=== PATIENT | male | born 1935 | race Caucasian/White ===

== ENCOUNTER 2016-10-23 23:45 | Emergency (ER) | payer MEDICARE, OTHER ==
[~2016-10-23] VITALS: Ht 180.3 cm; Wt 68.0 kg
[~2016-10-23 23:45] MED LIST: AMLO10 PO; CLON.1 PO; FINA5TAB77 PO; GLIP2.5T2 PO; METF500 PO; QUET25 PO; TAMS.4 PO
[2016-10-23 23:54] VITALS: BP 135/68; PULSE 88; RESP 20; TEMP 98; O2SAT 98
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
[2016-10-24 00:23] LABS: AUTOMATED NEUTROPHIL # 6.3 TH/MM3 (1.8-7.7); BASOPHIL % 0.5 % (0.0-2.0); EOSINOPHIL # 0.2 TH/MM3 (0-0.4); EOSINOPHIL % 1.8 % (0.0-4.0); HEMATOCRIT 36.1 % (39.0-51.0); HEMO FLAGS DIFF FINAL; LYMPH % 16.2 % (9.0-44.0); LYMPHOCYTE # 1.4 TH/MM3 (1.0-4.8); MEAN CORPUSCULAR HEMOGLOBIN 30.3 PG (27.0-34.0); MEAN CORPUSCULAR HGB CONC 34.8 % (32.0-36.0); MONO % 8.1 % (0.0-8.0); NEUT % 73.4 % (16.0-70.0); PLATELET COUNT 275 TH/MM3 (150-450); RED BLOOD COUNT 4.14 MIL/MM3 (4.50-5.90); RED CELL DISTRIBUTION WIDTH 14.1 % (11.6-17.2); WHITE BLOOD COUNT 8.6 TH/MM3 (4.0-11.0)
[2016-10-24 01:05] LABS: ALT (GPT) 19 U/L (12-78); ANION GAP 11 MEQ/L (5-15); AST (GOT) 11 U/L (15-37); BICARBONATE 25.4 MEQ/L (21.0-32.0); BLOOD UREA NITROGEN 23 MG/DL (7-18); CHLORIDE 105 MEQ/L (98-107); GLOMERULAR FILTRATION RATE 57 ML/MIN (>89); POTASSIUM 3.8 MEQ/L (3.5-5.1); SODIUM (NA) 141 MEQ/L (136-145)
[2016-10-24 01:15] LABS: ALKALINE PHOSPHATASE 60 U/L (45-117); TOTAL BILIRUBIN ADULT 0.5 MG/DL (0.2-1.0)
[2016-10-24 07:54] VITALS: BP 144/87; PULSE 77; RESP 21; TEMP 97.7; O2SAT 100
[2016-10-24 08:14] LABS: BLOOD, URINE NEG (NEG); COMMENT (UR) CULT NOT INDICATED; CULTURE IF INDICATED CULT NOT INDICATED; GLUCOSE,URINE NEG (NEG); KETONE, URINE NEG (NEG); MUCUS URINE FEW /lpf (OCC); NITRITE,URINE NEG (NEG); PH, URINE 7.5 (5.0-8.5); URINE COLOR LIGHT-YELLOW (YELLW/STRAW)
[2016-10-24 08:26] LABS: AMPHETAMINE, URINE NEG (NEG); BARBITURATES, URINE NEG (NEG); COCAINE, URINE NEG (NEG)
--- NOTE | 2016-10-24 09:33 | EKG ---
Date Performed: 10/24/2016 Time Performed: 00:24:04 PTAGE: 81 years EKG: Sinus rhythm WITH FREQUENT SUPRAVENTRICULAR PREMATURE COMPLEXES ABNORMAL RHYTHM ECG PREVIOUS TRACING : 03/21/2015 12.24 DOCTOR: Nam Rodriguez Interpretating Date/Time 10/24/2016 09:29:19
[2016-10-24 14:58] VITALS: BP 188/113; PULSE 91; RESP 18; TEMP 97; O2SAT 96
[2016-10-24] MEDS ORDERED: LISI10TA3 PO (16:11)
[2016-10-24] MEDS ORDERED: ZOLO50TA PO (16:11)
[2016-10-24] MEDS ORDERED: TAMS0.4C4 PO (16:11)
[2016-10-24] MEDS ORDERED: CLON0.1T PO (16:11)
[2016-10-24] MEDS ORDERED: GLIP5TAB8 PO (16:11)
[2016-10-24] MEDS ORDERED: METF1000 PO (16:11)
[2016-10-24] MEDS ORDERED: AMLO5TAB2 PO (16:11)
[2016-10-24] MEDS ORDERED: cloNIDine HCL 0.1 MG TAB PO PRN (20:30)
[2016-10-24] MEDS: diphenhydrAMINE HCL 50 MG CAP PO PRN ×2 (20:33→20:44)
[2016-10-24 20:34] VITALS: BP 222/119; PULSE 96
[2016-10-24] MEDS ORDERED: metFORMIN HCL 500 MG TAB PO ONE (21:30)
[2016-10-24 21:36] VITALS: BP 208/107; PULSE 109; RESP 18
[2016-10-25 01:59] VITALS: BP 144/69; PULSE 95; RESP 18
[2016-10-25 05:34] VITALS: BP 135/84; PULSE 91; RESP 18
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
[2016-10-25 10:23] VITALS: BP 137/58; PULSE 61; RESP 16; O2SAT 92
== END 2016-10-25 12:29 | disposition home or self-care (01) ==
LOC: NEPD 23:45 → NEPJ 10-25 12:29
DX: F03.91 Unspecified dementia, unspecified severity, with behavioral disturbance (principal); R94.31 Abnormal electrocardiogram [ECG] [EKG]; I10 Essential (primary) hypertension
CPT/HCPCS: 80053; 80307; 81001; 84443; 85025; 93005; 99284; Q0163

== ENCOUNTER 2017-04-06 11:31 | Inpatient (IN) | payer MEDICARE, OTHER ==
[~2017-04-06] VITALS: Ht 170.2 cm; Wt 69.1 kg
[2017-04-06] VITALS (7 sets, daily range): BP systolic 141–169; BP diastolic 70–96; PULSE 110–124; RESP 18–22; TEMP 97.8–101.2; O2SAT 90–100
[~2017-04-06 11:31] MED LIST changes: -AMLO10 PO; +AMLO5TAB2 PO; -CLON.1 PO; +CLON0.1T PO; -FINA5TAB77 PO; -GLIP2.5T2 PO; +GLIP5TAB8 PO; +LISI10TA3 PO; +METF1000 PO; -METF500 PO; -QUET25 PO; -TAMS.4 PO; +TAMS0.4C4 PO; +ZOLO50TA PO
[2017-04-06] MEDS ORDERED: SODIUM CHLOR 0.9% 1000 ML INJ 1,000 ML IV ONE (11:45)
--- NOTE | 2017-04-06 11:57 | PD ---
HPI Chief Complaint: Altered Mental Status Time Seen by Provider: 11:32 Travel History International Travel<30 days: No Contact w/Intl Traveler<30days: No Traveled to known affect area: No History of Present Illness HPI Patient is a 81-year-old male with a history of dementia on hospice for dementia presents to the ER for evaluation of decreasing mental status over the past 48 hours. Apparently last [facility] and had a fever to 102. Urine was sent and a chest x-ray was negative urine had not resulted yet. Patient's fairly altered on arrival with waxing and waning mental status between GCS of 14 and 7. Not much other history is available to me at this time. His arrives and states that the patient typically is conversant. He is fairly demented at baseline. PFSH Past Medical History Asthma: No Autoimmune Disease: No Anxiety: Yes Depression: Yes Cardiovascular Problems: Yes High Cholesterol: Yes Chest Pain: No Congestive Heart Failure: No COPD: No Cerebrovascular Accident: No Diabetes: Yes Diminished Hearing: No Endocrine: Yes Hypertension: Yes Immune Disorder: No Kidney Stones: No Musculoskeletal: No Neurologic: No Reproductive: No Respiratory: No Immunizations Current: No Migraines: No Renal Failure: No Seizures: No Sickle Cell Disease: No Thyroid Disease: No Triglycerides - High: Yes Ulcer: No Past Surgical History Abdominal Surgery: Yes (HERNIA X 2) AICD: No Arteriovenous Shunt: No Cardiac Surgery: No Ear Surgery: No Endocrine Surgery: No Eye Surgery: No Genitourinary Surgery: No Gynecologic Surgery: No Insulin Pump: No Pacemaker: No Thoracic Surgery: No Social History Alcohol Use: No Tobacco Use: No Substance Use: No Allergies-Medications (Allergen,Severity, Reaction): Coded Allergies: No Known Allergies (Verified Allergy, Unknown, 04/06/17) Reported Meds & Prescriptions Reported Meds & Active Scripts Active Reported Ambien (Zolpidem Tartrate) 10 Mg Tab 10 Mg PO HS PRN Xanax (Alprazolam) 0.5 Mg Tab 0.5 Mg PO Q6H PRN Seroquel (Quetiapine Fumarate) 25 Mg Tab 25 Mg PO DAILY Lasix (Furosemide) 20 Mg Tab 20 Mg PO DAILY Aldactone (Spironolactone) 25 Mg Tab 25 Mg PO DAILY Clonidine (Clonidine HCl) 0.1 Mg Tab 0.1 Mg PO BID Tamsulosin (Tamsulosin HCl) 0.4 Mg Cap 0.4 Mg PO HS Amlodipine (Amlodipine Besylate) 5 Mg Tab 5 Mg PO DAILY Lisinopril 10 Mg Tab 10 Mg PO DAILY Zoloft (Sertraline HCl) 50 Mg Tab 50 Mg PO DAILY Metformin (Metformin HCl) 1,000 Mg Tab 1,000 Mg PO BIDPC With meals Review of Systems Except as stated in HPI: all other systems reviewed are Neg Physical Exam Narrative GENERAL: Well-developed well-nourished, altered. Sickly appearance.] SKIN: Focused skin assessment warm/dry. HEAD: Atraumatic. Normocephalic. EYES: Pupils equal and round. No scleral icterus. No injection or drainage. ENT: No nasal bleeding or discharge. Mucous membranes pink and moist. NECK: Trachea midline. No JVD. CARDIOVASCULAR: Tachycardic with regular rhythm. 2+ bilaterally equal pulses in all 4 extremities. No murmur appreciated. RESPIRATORY: No accessory muscle use. Clear to auscultation. Breath sounds equal bilaterally. GASTROINTESTINAL: Abdomen soft, non-tender, nondistended. Hepatic and splenic margins not palpable. MUSCULOSKELETAL: No obvious deformities. No clubbing. No cyanosis. No edema. NEUROLOGICAL: Awake and alert. Moves all 4 extremities and opens eyes to painful stimuli. Later in his course is moving all 4 extremities purposefully, rigorous at times. PSYCHIATRIC: Appropriate mood and affect; insight and judgment normal. Data Data Last Documented VS Vital Signs Date Time Temp Pulse Resp B/P (MAP) Pulse Ox O2 Delivery O2 Flow Rate FiO2 04/06/17 14:15 101.2 124 20 169/93 (118) 100 Nasal Cannula 3.00 Orders Orders Sepsis Workup Initiated (04/06/17 ) Electrocardiogram (04/06/17 11:32) Complete Blood Count With Diff (04/06/17 11:32) Comprehensive Metabolic Panel (04/06/17 11:32) Prothrombin Time / Inr (Pt) (04/06/17 11:32) Act Partial Throm Time (Ptt) (04/06/17 11:32) Lactic Acid Sepsis Protocol (04/06/17 11:32) Magnesium (Mg) (04/06/17 11:32) Phosphorus (Po4) (04/06/17 11:32) Lipase (04/06/17 11:32) Ckmb (Isoenzyme) Profile (04/06/17 11:32) Troponin I (04/06/17 11:32) Urinalysis - C+S If Indicated (04/06/17 11:32) Blood Culture (04/06/17 11:32) Chest, Single Ap (04/06/17 11:32) Blood Glucose (04/06/17 11:32) Ecg Monitoring (04/06/17 11:32) Iv Access Insert/Monitor (04/06/17 11:32) Oximetry (04/06/17 11:32) Oxygen Administration (04/06/17 11:32) Ct Brain W/O Iv Contrast(Rout) (04/06/17 ) Insert Temp Sensing [place] Cath (04/06/17 11:32) Sodium Chlor 0.9% 1000 Ml Inj (Ns 1000 M (04/06/17 11:45) Urine Culture (04/06/17 11:45) Ceftriaxone Inj (Rocephin Inj) (04/06/17 13:15) Admit Order (Ed Use Only) (04/06/17 ) Labs Laboratory Tests Test 04/06/17 11:40 04/06/17 11:45 04/06/17 11:46 Prothrombin Time 11.8 SEC Prothromb Time International Ratio 1.1 RATIO Activated Partial Thromboplast Time 23.6 SEC Lactic Acid Level 1.5 mmol/L Urine Color LIGHT-YELLOW Urine Turbidity HAZY Urine pH 6.0 Urine Specific [place] 1.014 Urine Protein 100 mg/dL Urine Glucose (UA) 1000 mg/dL Urine Ketones NEG mg/dL Urine Occult Blood LARGE Urine Nitrite POS Urine Bilirubin NEG Urine Urobilinogen LESS THAN 2.0 MG/DL Urine Leukocyte Esterase LARGE Urine RBC 18 /hpf Urine WBC /hpf Urine WBC Clumps FEW Urine Bacteria MOD /hpf Microscopic Urinalysis Comment CATH-CULTURE IND White Blood Count 7.0 TH/MM3 Red Blood Count 3.99 MIL/MM3 Hemoglobin 12.3 GM/DL Hematocrit 35.7 % Mean Corpuscular Volume 89.3 FL Mean Corpuscular Hemoglobin 30.8 PG Mean Corpuscular Hemoglobin Concent 34.5 % Red Cell Distribution Width 13.3 % Platelet Count 166 TH/MM3 Mean Platelet Volume 9.7 FL Neutrophils (%) (Auto) 87.5 % Lymphocytes (%) (Auto) 4.9 % Monocytes (%) (Auto) 7.3 % Eosinophils (%) (Auto) 0.0 % Basophils (%) (Auto) 0.3 % Neutrophils # (Auto) 6.1 TH/MM3 Lymphocytes # (Auto) 0.3 TH/MM3 Monocytes # (Auto) 0.5 TH/MM3 Eosinophils # (Auto) 0.0 TH/MM3 Basophils # (Auto) 0.0 TH/MM3 CBC Comment DIFF FINAL Differential Comment Blood Urea Nitrogen 31 MG/DL Creatinine 1.68 MG/DL Random Glucose 374 MG/DL Total Protein 7.0 GM/DL Albumin 3.2 GM/DL Calcium Level 8.5 MG/DL Phosphorus Level 3.7 MG/DL Magnesium Level 1.7 MG/DL Alkaline Phosphatase 71 U/L Aspartate Amino Transf (AST/SGOT) 10 U/L Alanine Aminotransferase (ALT/SGPT) 15 U/L Total Bilirubin 0.6 MG/DL Sodium Level 140 MEQ/L Potassium Level 3.6 MEQ/L Chloride Level 103 MEQ/L Carbon Dioxide Level 28.3 MEQ/L Anion Gap 9 MEQ/L Estimat Glomerular Filtration Rate 40 ML/MIN Total Creatine Kinase 94 U/L Troponin I 0.02 NG/ML Lipase 66 U/L MDM Medical Decision Making Medical Screen Exam Complete: Yes Emergency Medical Condition: Yes Differential Diagnosis Altered mental status, intracranial injury, sepsis, UTI, pneumonia. Narrative Course Patient roomed in emergency department, Delfino is a time he did not the fever and axis of 102. Tylenol was given. He was given normal saline by bolus, UA was obtained and did reveal nitrate positive urine, he does meet Sirs criteria and therefore sepsis from UTI. Lactic acid is normal and he does have a history of CHF therefore aggressive fluid resuscitation is not indicated at this time. HEENT had a lengthy discussion with the patient's over CODE STATUS and the patient's wishes at this time. She would like him treated for UTI and sepsis for sure and initially is unsure about CODE STATUS but after discussing with the neighbor she opts to make the patient DNR at this time stating that she wouldn't want him to suffer anymore. Formal DNR order was added to the chart. Discussed admission to the hospital for treatment of UTI and sepsis and she is agreeable. Rocephin was given. Discussed with residents on-call for admission to Dr. Bessy Waters Diagnosis Primary Impression: Sepsis secondary to UTI Admitting Information Admitting Physician Requests: Admit Condition: Stable Sameer Coley MD Apr 06, 2017 11:57
[2017-04-06 12:16] LABS: AUTOMATED NEUTROPHIL # 6.1 TH/MM3 (1.8-7.7); BASOPHIL % 0.3 % (0.0-2.0); HEMATOCRIT 35.7 % (39.0-51.0); HEMO FLAGS DIFF FINAL; LYMPH % 4.9 % (9.0-44.0); LYMPHOCYTE # 0.3 TH/MM3 (1.0-4.8); MEAN CELL VOLUME 89.3 FL (80.0-100.0); MEAN CORPUSCULAR HEMOGLOBIN 30.8 PG (27.0-34.0); MEAN CORPUSCULAR HGB CONC 34.5 % (32.0-36.0); MONO % 7.3 % (0.0-8.0); NEUT % 87.5 % (16.0-70.0); PLATELET COUNT 166 TH/MM3 (150-450); RED BLOOD COUNT 3.99 MIL/MM3 (4.50-5.90); RED CELL DISTRIBUTION WIDTH 13.3 % (11.6-17.2)
--- NOTE | 2017-04-06 12:18 | RADRPT ---
EXAM DATE/TIME: 04/06/2017 11:57 [facility] COMPARISON: No previous studies available for comparison. INDICATIONS : Fever. MEDICAL HISTORY : unobtainable. SURGICAL HISTORY : unobtainable. ENCOUNTER: Initial ACUITY: 1 day PAIN SCORE: Non-responsive. LOCATION: Bilateral chest FINDINGS: A single view of the chest demonstrates the lungs to be symmetrically aerated without evidence of mas s, infiltrate or effusion. The cardiomediastinal contours are unremarkable. Osseous structures are intact. CONCLUSION: Normal examination. Nam Ibanez MD on April 06, 2017 at 12:17 Board Certified Radiologist. This report was verified electronically.
[2017-04-06 12:27] LABS: APTT (PATIENT) 23.6 SEC (24.3-30.1); INTERNATIONAL NORMALIZED RATIO 1.1 RATIO; PROTHROMBIN TIME - PATIENT 11.8 SEC (9.8-11.6)
[2017-04-06 12:27] LABS: ANION GAP 9 MEQ/L (5-15); BICARBONATE 28.3 MEQ/L (21.0-32.0); BLOOD UREA NITROGEN 31 MG/DL (7-18); CHLORIDE 103 MEQ/L (98-107); GLOMERULAR FILTRATION RATE 40 ML/MIN (>89); MAGNESIUM 1.7 MG/DL (1.5-2.5); POTASSIUM 3.6 MEQ/L (3.5-5.1); SODIUM (NA) 140 MEQ/L (136-145)
[2017-04-06 12:28] LABS: AST (GOT) 10 U/L (15-37)
[2017-04-06 12:31] LABS: ALKALINE PHOSPHATASE 71 U/L (45-117); ALT (GPT) 15 U/L (12-78); TOTAL BILIRUBIN ADULT 0.6 MG/DL (0.2-1.0)
[2017-04-06 12:32] LABS: BACTERIA, URINE MOD /hpf; BLOOD, URINE LARGE (NEG); COMMENT (UR) CATH-CULTURE IND; CULTURE IF INDICATED CATH CULTURE IND; GLUCOSE,URINE 1000 mg/dL (NEG); KETONE, URINE NEG (NEG); NITRITE,URINE POS (NEG); URINE COLOR LIGHT-YELLOW (YELLW/STRAW)
[2017-04-06 12:36] LABS: CREATINE KINASE 94 U/L (39-308)
[2017-04-06] MEDS ORDERED: FURO1TAB62 PO (12:41)
[2017-04-06] MEDS ORDERED: SPIR25 PO (12:41)
[2017-04-06] MEDS ORDERED: ALPR.5 PO (12:41)
[2017-04-06] MEDS ORDERED: AMBI10TA PO (12:41)
[2017-04-06] MEDS ORDERED: SERO25TA PO (12:41)
--- NOTE | 2017-04-06 12:57 | RADRPT ---
EXAM DATE/TIME: 04/06/2017 12:31 [facility] COMPARISON: No previous studies available for comparison. INDICATIONS : Altered mental status. RADIATION DOSE: 40.08 CTDIvol (mGy) MEDICAL HISTORY : Hypertension. Diabetes mellitus type 2. SURGICAL HISTORY : Hernia repair. ENCOUNTER: Initial ACUITY: 1 day PAIN SCALE: 0/10 LOCATION: cranial TECHNIQUE: Multiple contiguous axial images were obtained of the head. Using automated exposure control and adj ustment of the mA and/or kV according to patient size, radiation dose was kept as low as reasonably a chievable to obtain optimal diagnostic quality images. DICOM format image data is available electro nically for review and comparison. FINDINGS: There is marked central and cortical atrophy with dilatation of ventricular and sulcal spaces. There is no parenchymal hemorrhage, acute infarction or mass lesion identified. There are no extra-axial fluid collections appreciated. The posterior fossa is unremarkable with midline fourth ventricle. T he portion of the orbits and paranasal sinuses visualized are unremarkable. CONCLUSION: No acute disease. Nam Ibanez MD on April 06, 2017 at 12:55 Board Certified Radiologist. This report was verified electronically.
[2017-04-06] MEDS ORDERED: cefTRIAXone INJ 1,000 MG in SODIUM CHLORIDE 0.9% INJ 100 ML IV ONE (13:15)
[2017-04-06] MEDS ORDERED: ACETAMINOPHEN 650 MG SUPP RECTAL ONE (14:30)
--- NOTE | 2017-04-06 14:53 | HHI.HP ---
[facility] Service Family Medicine Primary Care Physician Unknown Admission Diagnosis UTI with Sepsis. Diagnoses: International Travel<30 Days: No Contact w/Intl Traveler<30days: No Known Affected Area: No History of Present Illness Patient is a 81-year-old male with a PMH of dementia, HTN, DM, and HLD that presents to the [place] ED from the [facility] with chief complaints of fever and lethargy of one-day duration. The patient's at bedside states that she she received a call from the [facility] and the previous night informing her that her had a fever and they were going to check an x-ray. The next day she called and was told that the x-ray was negative. Later that morning, they called to inform her that he was being rushed to the hospital because he was very lethargic and was not responding. The patient's states that she when she saw him in the ED, he initially responded to her and then became agitated. One of the nurses at [facility] confirmed that the patient had a fever of 102F the previous night and was very lethargic. He is confused at baseline but he could answer simple questions such as "what is your name?" But was not answering any questions or responding this morning. (Ana Rosa Oneil MD R2) Review of Systems Constitutional: COMPLAINS OF: Fever Cardiovascular: COMPLAINS OF: Lower Extremity Edema ( states has improved recently since being on lasix) Genitourinary: COMPLAINS OF: Urinary incontinence, Dysuria ( states that recently, he screams when he urinates ) Psychiatric: COMPLAINS OF: Confusion Other Unable to obtain complete review of systems due to patient being nonverbal. (Ana Rosa Oneil MD R2) Past Family Social History Past Medical History -Dementia - confused at baseline -Diabetes -Hypertension -Hyperlipidemia -Spinal stenosis -Incontinent of stool and urine Past Surgical History Hernia surgery many years ago Appendectomy Reported Medications Reported Meds & Active Scripts Active Reported Ambien (Zolpidem Tartrate) 10 Mg Tab 10 Mg PO HS PRN Xanax (Alprazolam) 0.5 Mg Tab 0.5 Mg PO Q6H PRN Seroquel (Quetiapine Fumarate) 25 Mg Tab 25 Mg PO DAILY Lasix (Furosemide) 20 Mg Tab 20 Mg PO DAILY Aldactone (Spironolactone) 25 Mg Tab 25 Mg PO DAILY Clonidine (Clonidine HCl) 0.1 Mg Tab 0.1 Mg PO BID Tamsulosin (Tamsulosin HCl) 0.4 Mg Cap 0.4 Mg PO HS Amlodipine (Amlodipine Besylate) 5 Mg Tab 5 Mg PO DAILY Lisinopril 10 Mg Tab 10 Mg PO DAILY Zoloft (Sertraline HCl) 50 Mg Tab 50 Mg PO DAILY Metformin (Metformin HCl) 1,000 Mg Tab 1,000 Mg PO BIDPC With meals (Ana Rosa Oneil MD R2) Allergies: Coded Allergies: No Known Allergies (Verified Allergy, Unknown, 04/06/17) Family History -He is off [place] descent -At least one brother had diabetes -Mom had dementia Social History -Patient's denies that he ever smoked, used alcohol, or used illicit drugs -Leaves at [facility] sings December 2016 -Patient has been in hospice with [facility] since July 2016. He has been full code because his hospice does not require a DNR status. (Ana Rosa Oneil MD R2) Physical Exam Vital Signs Vital Signs Date Time Temp Pulse Resp B/P (MAP) Pulse Ox O2 Delivery O2 Flow Rate FiO2 04/06/17 14:15 101.2 124 20 169/93 (118) 100 Nasal Cannula 3.00 04/06/17 12:30 97.8 118 20 141/90 (107) 96 Nasal Cannula 3.00 04/06/17 11:35 22 96 Nasal Cannula 3.00 04/06/17 11:35 96 Nasal Cannula 3.00 04/06/17 11:35 22 96 Nasal Cannula 3.00 04/06/17 11:32 98.4 114 22 157/96 (116) 90 Physical Exam GENERAL: This is a well-nourished, well-developed patient, in no respiratory distress but appears lethargic SKIN: No rashes, ecchymoses or lesions. Cool and dry. HEAD: Atraumatic. Normocephalic. No temporal or scalp tenderness. EYES: Pupils equal round and reactive. No scleral icterus. No injection or drainage. ENT: Nose without bleeding, purulent drainage or septal hematoma. Unable to assess oropharynx, patient will not open mouth during the exam NECK: Trachea midline. No JVD or lymphadenopathy. Supple, nontender, no meningeal signs. CARDIOVASCULAR: Tachycardic rate and regular rhythm without murmurs, gallops, or rubs. 2+ DP and radial pulses RESPIRATORY: Clear to auscultation. Breath sounds equal bilaterally. No wheezes , rales, or rhonchi. GASTROINTESTINAL: Abdomen soft, non-tender, nondistended. No hepato-splenomegaly , or palpable masses. No guarding. MUSCULOSKELETAL: Extremities without clubbing, cyanosis, or edema. No joint tenderness, effusion, or edema noted. No calf tenderness. NEUROLOGICAL: Nonverbal, not responding to commands Laboratory Laboratory Tests Test 04/06/17 11:40 04/06/17 11:45 04/06/17 11:46 Prothrombin Time 11.8 Prothromb Time International Ratio 1.1 Activated Partial Thromboplast Time 23.6 Lactic Acid Level 1.5 Urine Color LIGHT-YELLOW Urine Turbidity HAZY Urine pH 6.0 Urine Specific [place] 1.014 Urine Protein 100 Urine Glucose (UA) 1000 Urine Ketones NEG Urine Occult Blood LARGE Urine Nitrite POS Urine Bilirubin NEG Urine Urobilinogen LESS THAN 2.0 Urine Leukocyte Esterase LARGE Urine RBC 18 Urine WBC Urine WBC Clumps FEW Urine Bacteria MOD Microscopic Urinalysis Comment CATH-CULTURE IND White Blood Count 7.0 Red Blood Count 3.99 Hemoglobin 12.3 Hematocrit 35.7 Mean Corpuscular Volume 89.3 Mean Corpuscular Hemoglobin 30.8 Mean Corpuscular Hemoglobin Concent 34.5 Red Cell Distribution Width 13.3 Platelet Count 166 Mean Platelet Volume 9.7 Neutrophils (%) (Auto) 87.5 Lymphocytes (%) (Auto) 4.9 Monocytes (%) (Auto) 7.3 Eosinophils (%) (Auto) 0.0 Basophils (%) (Auto) 0.3 Neutrophils # (Auto) 6.1 Lymphocytes # (Auto) 0.3 Monocytes # (Auto) 0.5 Eosinophils # (Auto) 0.0 Basophils # (Auto) 0.0 CBC Comment DIFF FINAL Differential Comment Blood Urea Nitrogen 31 Creatinine 1.68 Random Glucose 374 Total Protein 7.0 Albumin 3.2 Calcium Level 8.5 Phosphorus Level 3.7 Magnesium Level 1.7 Alkaline Phosphatase 71 Aspartate Amino Transf (AST/SGOT) 10 Alanine Aminotransferase (ALT/SGPT) 15 Total Bilirubin 0.6 Sodium Level 140 Potassium Level 3.6 Chloride Level 103 Carbon Dioxide Level 28.3 Anion Gap 9 Estimat Glomerular Filtration Rate 40 Total Creatine Kinase 94 Troponin I 0.02 Lipase 66 Date/Time Source Procedure Growth Status 04/06/17 12:03 Blood Peripheral Aerobic Blood Culture Pending Received 04/06/17 12:03 Blood Peripheral Anaerobic Blood Culture Pending Received 04/06/17 11:45 Urine Catheterized Urine Urine Culture Pending Received (Ana Rosa Oneil MD R2) Result Diagram: 04/06/17 1146 04/06/17 1146 Imaging Last Impressions Chest X-Ray 04/06/17 1132 Signed Impressions: Service Date/Time: Thursday, April 06, 2017 11:57 - CONCLUSION: Normal examination. Nam Ibanez MD Head CT 04/06/17 0000 Signed Impressions: Service Date/Time: Thursday, April 06, 2017 12:31 - CONCLUSION: No acute disease. Nam Ibanez MD Course In the ED, a chest x-ray and a head CT without contrast were performed and were normal. Patient was found to have a urinary tract infection on UA. He received one dose of Rocephin 1000 mg IV. The first EKG showed A. fib with RVR and the second EKG in the ED showed sinus tachycardia. (Ana Rosa Oneil MD R2) Caprini VTE Risk Assessment Caprini VTE Risk Assessment: Mod/High Risk (score >= 2) Caprini Risk Assessment Model Point Value = 1 Point Value = 2 Point Value = 3 Point Value = 5 Age 41-60 Minor surgery BMI > 25 kg/m2 Swollen legs Varicose veins or History of unexplained or recurrent spontaneous Oral contraceptives or hormone replacement Sepsis (< 1 month) Serious lung disease, including pneumonia (< 1 month) Abnormal pulmonary function Acute myocardial infarction Congestive heart failure (< 1 month) History of inflammatory bowel disease Medical patient at bed rest Age 61-74 Arthroscopic surgery Major open surgery (> 45 min) Laparoscopic surgery (> 45 min) Malignancy Confined to bed (> 72 hours) Immobilizing plaster cast Central venous access Age >= 75 History of VTE Family history of VTE Factor V Leiden Prothrombin [id number] Lupus anticoagulant Anticardiolipin antibodies Elevated serum homocysteine Heparin-induced thrombocytopenia Other congenital or acquired thrombophilia Stroke (< 1 month) Elective arthroplasty Hip, pelvis, or leg fracture Acute spinal cord injury (< 1 month) Prophylaxis Regimen Total Risk Factor Score Risk Level Prophylaxis Regimen 0-1 Low Early ambulation 2 Moderate Order ONE of the following: *Sequential Compression Device (SCD) *Heparin 5000 units SQ BID 3-4 Higher Order ONE of the following medications: *Heparin 5000 units SQ TID *Enoxaparin/Lovenox 40 mg SQ daily (WT < 150 kg, CrCl > 30 mL/min) *Enoxaparin/Lovenox 30 mg SQ daily (WT < 150 kg, CrCl > 10-29 mL/min) *Enoxaparin/Lovenox 30 mg SQ BID (WT < 150 kg, CrCl > 30 mL/min) AND/OR *Sequential Compression Device (SCD) 5 or more Highest Order ONE of the following medications: *Heparin 5000 units SQ TID (Preferred with Epidurals) *Enoxaparin/Lovenox 40 mg SQ daily (WT < 150 kg, CrCl > 30 mL/min) *Enoxaparin/Lovenox 30 mg SQ daily (WT < 150 kg, CrCl > 10-29 mL/min) *Enoxaparin/Lovenox 30 mg SQ BID (WT < 150 kg, CrCl > 30 mL/min) AND *Sequential Compression Device (SCD) (Ana Rosa Oneil MD R2) Assessment and Plan Assessment and Plan 81-year-old male with past medical history of dementia presents with severe sepsis with acute kidney injury most likely from a urinary tract infection. He will be admitted for management with IV antibiotics and fluids. Code Status Alternative code Patient's is his power of criminal defense attorney She is okay with chest compressions but does not want him to be intubated Discussed Condition With Discussed with Dr. Waters (Ana Rosa Oneil MD R2) Attending Attestation The patient has been seen and examined. The chart and all resident notes have been reviewed. I agree that inpatient care is appropriate and that a two midnight stay is expected for the reasons documented in the resident history and physical. I have discussed this with the resident and certify the resident s order for inpatient admission. (Bessy Waters MD) Problem List: (1) Severe sepsis with acute organ dysfunction ICD Codes: A41.9 - Sepsis, unspecified organism; R65.20 - Severe sepsis without septic shock Status: Resolved Plan: -Met severe sepsis criteria and admission with , pulse of 114 and temperature 101.2F and elevated creatinine of 1.68, last available baseline creatinine is 1.22 in October 2016. -Suspect urosepsis/complicated UTI as the major source of infection -Lactic acid within normal limits at 1.5 -Chest x-ray was normal -UA positive for nitrites, large leukocyte esterase, innumerable WBC with WBC clumps, and moderate bacteria -Urine culture pending -Blood cultures pending -Received 1 normal saline bolus in the ED -Continue Normal saline at 50 mL per hour -Continue Rocephin 1 g every 12 hours IV (received one dose in the ED on 04/06 (2) Urinary tract infection ICD Codes: N39.0 - Urinary tract infection, site not specified Status: Acute Plan: -UA indicative of urinary tract infection, possibly pyelonephritis but unable to assess flank pain from patient -Treatment as above with Rocephin IV (3) CARLEE (acute kidney injury) ICD Codes: N17.9 - Acute kidney failure, unspecified Status: Resolved Plan: -Elevated creatinine at 1.68 -Baseline creatinine 1.22 in October 2016 -Continue fluids as above -Avoid nephrotoxic agents as possible (4) Dementia ICD Codes: F03.90 - Unspecified dementia without behavioral disturbance Status: Chronic Plan: -History of dementia with behavioral disturbance -Not currently on any dementia medications per medication record -Holding sedating medications including sertraline, Seroquel, Xanax, and Ambien (5) Diabetes mellitus ICD Codes: E11.9 - Type 2 diabetes mellitus without complications Status: Chronic Plan: -Holding metformin 1000 mg by mouth twice a day after meals -Accu-Cheks with low-dose sliding scale insulin (6) Hypertension ICD Codes: I10 - Essential (primary) hypertension Status: Resolved Plan: -Continue amlodipine 5 mg by mouth daily Continue lisinopril 10 mg by mouth daily Clonidine 0.[address] [facility] called to 170, DBP greater than or equal to 100 (7) FEN/DVT PPX/GI PPX/Nursing Orders Plan: Fluids: NS @ 150 mls/hr IV Electrolytes: Will monitor and replace as needed Nutrition: Passed bedside swallow eval per nurse, full liquid with applesauce DVT Prophylaxis: Bilateral SCDs, Heparin subcutaneous Q8h GI Prophylaxis: None required Constipation prophylaxis: Pericolace 1 tab PO BID when necessary constipation PRN Medications Tylenol 650 mg by mouth every 4 hours when necessary pain 1-10 or temperature greater than 100.4F Zofran 4 mg IV push every 6 hours when necessary nausea vomiting -Vitals Q4h -Monitor I's and O's -Neurochecks -front desk monitor with telemetry with continuous vital signs -Activity bed rest -Case management consult to assist with discharge disposition Disposition: Pending clinical improvement (Ana Rosa Oneil MD R2) Ana Rosa Oneil MD R2 Apr 06, 2017 14:53 Bessy Waters MD Apr 12, 2017 22:09
[2017-04-06] MEDS ORDERED: DEXTROSE 50% IN WATER 50 ML VIAL(D50) IV PUSH PRN (15:30)
[2017-04-06] MEDS ORDERED: GLUCAGON 1 MG/ML VIAL OTHER PRN (15:30)
[2017-04-06] MEDS ORDERED: ACETAMINOPHEN 325 MG TAB PO PRN (16:00)
[2017-04-06] MEDS ORDERED: DOCUSATE SODIUM 100 MG CAP PO PRN (16:00)
[2017-04-06] MEDS ORDERED: cloNIDine HCL 0.1 MG TAB PO PRN (16:00)
[2017-04-06] MEDS: SODIUM CHLOR 0.9% 1000 ML INJ 1,000 ML IV SCH ×2 (16:53→22:09)
[2017-04-06] MEDS: HEPARIN SODIUM - SQ 10,000 UNITS/ML VIAL SQ SCH (16:54)
[2017-04-06] MEDS: INSULIN ASPART SUPPLEMENTAL SCALE SQ SCH ×2 (17:00→21:00)
--- NOTE | 2017-04-06 17:31 | HHI.FPPN ---
Subjective Subjective Patient seen and examined. Case reviewed and discussed. Please refer to the resident H&P for further details regarding history of present illness, ROS, past medical and surgical history, family and social history. In summary, patient is a 81-year-old male who resides at [facility] and is on [facility] hospice for his dementia. He presented to the emergency room after fevers to 102 and depressed mental status and decreased by mouth intake over the last 24 hours. He is seen in the emergency department with his and [employer] sales representative at the bedside. Patient is lying with his eyes closed and doesn't respond or answer questions. [facility] Objective Objective Last Impressions Chest X-Ray 04/06/17 1132 Signed Impressions: Service Date/Time: Thursday, April 06, 2017 11:57 - CONCLUSION: Normal examination. Nam Ibanez MD Head CT 04/06/17 0000 Signed Impressions: Service Date/Time: Thursday, April 06, 2017 12:31 - CONCLUSION: No acute disease. Nam Ibanez MD Laboratory Tests - Abnormals Test 04/06/17 11:40 04/06/17 11:45 04/06/17 11:46 Prothrombin Time 11.8 SEC Activated Partial Thromboplast Time 23.6 SEC Urine Turbidity HAZY Urine Protein 100 mg/dL Urine Glucose (UA) 1000 mg/dL Urine Occult Blood LARGE Urine Nitrite POS Urine Leukocyte Esterase LARGE Urine RBC 18 /hpf Urine WBC Clumps FEW Urine Bacteria MOD /hpf Red Blood Count 3.99 MIL/MM3 Hemoglobin 12.3 GM/DL Hematocrit 35.7 % Neutrophils (%) (Auto) 87.5 % Lymphocytes (%) (Auto) 4.9 % Lymphocytes # (Auto) 0.3 TH/MM3 Blood Urea Nitrogen 31 MG/DL Creatinine 1.68 MG/DL Random Glucose 374 MG/DL Albumin 3.2 GM/DL Aspartate Amino Transf (AST/SGOT) 10 U/L Estimat Glomerular Filtration Rate 40 ML/MIN Lipase 66 U/L Vital Signs 04/06/17 04/06/17 04/06/17 04/06/17 11:32 11:35 11:35 11:35 Temp 98.4 Pulse 114 Resp B/P (MAP) 157/96 (116) Pulse Ox 90 96 96 96 O2 Delivery Nasal Cannula Nasal Cannula Nasal Cannula O2 Flow Rate 3.00 3.00 3.00 04/06/17 04/06/17 04/06/17 12:30 14:15 15:58 Temp 97.8 101.2 99.0 Pulse 118 124 124 Resp 20 20 18 B/P (MAP) 141/90 (107) 169/93 (118) 142/91 (108) Pulse Ox 96 100 99 O2 Delivery Nasal Cannula Nasal Cannula Nasal Cannula O2 Flow Rate 3.00 3.00 3.00 INTAKE & OUTPUT 04/07/17 07:00 Intake Total 1100 ml Balance 1100 ml Physical exam GENERAL: Well-developed elderly male, resting in bed with eyes closed. SKIN: Warm and dry. No rashes or lesions HEAD: Normocephalic. Atraumatic EYES: No scleral icterus. No injection or drainage. ENT: OP clear. MM slightly dry NECK: Supple, trachea midline. No JVD or lymphadenopathy. CARDIOVASCULAR: Regular rate and rhythm 2/6 UVALDO at right upper sternal border. No gallops, or rubs. RESPIRATORY: Breath sounds equal and clear to auscultation bilaterally. No accessory muscle use. GASTROINTESTINAL: Abdomen soft, nondistended. Patient does seem uncomfortable with palpation of the suprapubic area. No rebound MUSCULOSKELETAL: No cyanosis, there is bilateral symmetric trace edema of the feet chronic. No apparent calf tenderness BACK: Nontender without obvious deformity. No CVA tenderness. Neuro: Sleepy, but awakens. Does not respond at baseline. Withdrawal to painful stimuli. Assessment Assessment 81-year-old male with: Severe Sepsis due to UTI Acute on chronic encephalopathy Acute renal insufficiency Fever Diabetes Tachycardia Hypertension Dementia Hospice patient PLAN PLAN Urine cultures, blood cultures IV fluids Empiric antibiotic therapy Consider 2-D echo as patient has report of lower extremity edema recently, ? Tolerability of IV fluids Trend BMP Monitor urine output, consider bladder scan or renal ultrasound Flomax Resume home meds as appropriate PT consult Patient seen and examined. Case reviewed and discussed. Agree with plan of care as discussed with me and documented in the resident note. Bessy Waters MD Apr 06, 2017 17:31
[2017-04-06] MEDS: TAMSULOSIN HCL 0.4 MG CAP PO SCH (22:38)
[2017-04-06] MEDS ORDERED: ONDANSETRON HCL 4 MG/2 ML VIAL IV PUSH PRN (23:15)
[2017-04-07 00:30] VITALS: BP 148/97; PULSE 118; RESP 18; TEMP 99.8; O2SAT 98
[2017-04-07 00:46] VITALS: O2SAT 98
[2017-04-07] MEDS: METOPROLOL TARTRATE 25 MG TAB PO SCH ×2 (00:54→09:15)
[2017-04-07] MEDS: cefTRIAXone INJ 1,000 MG in SODIUM CHLORIDE 0.9% INJ 100 ML IV SCH ×2 (00:54→14:46)
[2017-04-07] MEDS: SODIUM CHLOR 0.9% 1000 ML INJ 1,000 ML IV SCH ×2 (03:40→11:29)
[2017-04-07 05:33] VITALS: BP 143/82; PULSE 106; RESP 18; TEMP 98.4; O2SAT 96
[2017-04-07] MEDS: HEPARIN SODIUM - SQ 10,000 UNITS/ML VIAL SQ SCH ×2 (06:31→18:00)
[2017-04-07 07:52] LABS: AUTOMATED NEUTROPHIL # 4.6 TH/MM3 (1.8-7.7); BASOPHIL % 0.5 % (0.0-2.0); EOSINOPHIL % 0.2 % (0.0-4.0); HEMO FLAGS DIFF FINAL; LYMPH % 10.9 % (9.0-44.0); LYMPHOCYTE # 0.6 TH/MM3 (1.0-4.8); MEAN CELL VOLUME 91.2 FL (80.0-100.0); MEAN CORPUSCULAR HEMOGLOBIN 30.9 PG (27.0-34.0); MEAN CORPUSCULAR HGB CONC 33.8 % (32.0-36.0); MONO % 9.7 % (0.0-8.0); NEUT % 78.7 % (16.0-70.0); PLATELET COUNT 152 TH/MM3 (150-450); RED BLOOD COUNT 3.84 MIL/MM3 (4.50-5.90); RED CELL DISTRIBUTION WIDTH 13.3 % (11.6-17.2); WHITE BLOOD COUNT 5.9 TH/MM3 (4.0-11.0)
[2017-04-07] MEDS: INSULIN ASPART SUPPLEMENTAL SCALE SQ SCH ×4 (08:00→20:57)
[2017-04-07 08:06] VITALS: BP 131/79; PULSE 111; RESP 20; TEMP 98.7; O2SAT 95
[2017-04-07] MEDS: SPIRONOLACTONE 25 MG TAB PO SCH (09:15)
[2017-04-07] MEDS: LISINOPRIL 10 MG TAB PO SCH (09:15)
--- NOTE | 2017-04-07 10:28 | EKG ---
Date Performed: 04/07/2017 Time Performed: 00:10:28 PTAGE: 81 years EKG: Sinus tachycardia with sinus arrhythmia Leftward axis Inferior infarct - age undetermined A bnormal ECG PREVIOUS TRACING : 04/06/2017 21.15 DOCTOR: Dru Bates Interpretating Date/Time 04/07/2017 10:26:01
--- NOTE | 2017-04-07 10:31 | EKG ---
Date Performed: 04/06/2017 Time Performed: 21:15:29 PTAGE: 81 years EKG: SINUS TACHYCARDIA ABNORMAL RHYTHM ECG PREVIOUS TRACING : 04/06/2017 12.43 DOCTOR: Dru Bates Interpretating Date/Time 04/07/2017 10:29:52
--- NOTE | 2017-04-07 10:48 | EKG ---
Date Performed: 04/06/2017 Time Performed: 12:43:21 PTAGE: 81 years EKG: ATRIAL FIBRILLATION WITH RAPID VENTRICULAR RESPONSE MINIMAL VOLTAGE CRITERIA FOR LVH, CONSI RAULITO NORMAL VARIANT ABNORMAL RHYTHM ECG PREVIOUS TRACING : 10/24/2016 00.24 DOCTOR: Dru Bates Interpretating Date/Time 04/07/2017 10:46:00
[2017-04-07] MEDS ORDERED: METOPROLOL TARTRATE 25 MG TAB PO ONE (14:00)
--- NOTE | 2017-04-07 15:09 | RADRPT ---
EXAM DATE/TIME: 04/07/2017 13:46 [place] COMPARISON: No previous studies available for comparison. INDICATIONS : Increased BUN/Creatnine. MEDICAL HISTORY : Myocardial infarction. Hypercholesterolemia. Benign prostatic hyperplasia, (BPH) Hyperlipidemia. Hype rtension. Dysuria. Incontinence. Diabetes. Anxiety. Depression. SURGICAL HISTORY : Hernia repair. ENCOUNTER: Initial ACUITY: 1 day PAIN SCORE: 1/10 LOCATION: Bilateral flank MEASUREMENTS: RIGHT KIDNEY: 10.9 x 3.6 x 4.8 cm LEFT KIDNEY: 11.2 x 3.0 x 5.5 cm FINDINGS: Kidneys are echogenic characteristic of medical renal disease. 5 mm calculus mid pole right kidney. 1 .9 cm left renal cyst. Mild right hydronephrosis. Marked bladder wall thickening with enlarged prostate measuring up to 5.9 x 6 x 5.9 cm. CONCLUSION: 1. Enlarged prostate with diffusely thickened bladder wall. 2. Echogenic kidneys characteristic of medical renal disease. Mild right hydronephrosis. Evaristo Velazco MD on April 07, 2017 at 15:06 Board Certified Radiologist. This report was verified electronically.
--- NOTE | 2017-04-07 15:25 | HHI.FPPN ---
Subjective Remarks Elderly gentleman, lying in bed, in no distress. Follows simple commands. Knows his name and date, but does not know where he is or current date, or his current situation. Not complaining of anything this morning. Incontinent of stool and urine. Not in any distress this morning. Not agitated. Objective Vitals Vital Signs Date Time Temp Pulse Resp B/P (MAP) Pulse Ox O2 Delivery O2 Flow Rate FiO2 04/07/17 08:06 98.7 111 20 131/79 (96) 95 04/07/17 05:33 98.4 106 18 143/82 (102) 96 04/07/17 00:46 98 Nasal Cannula 3.00 04/07/17 00:30 99.8 118 18 148/97 (114) 98 04/06/17 20:30 100.3 110 18 155/70 (98) 98 04/06/17 19:44 116 04/06/17 15:58 99.0 124 18 142/91 (108) 99 Nasal Cannula 3.00 I/O 04/06/17 04/06/17 04/06/17 04/07/17 04/07/17 04/07/17 07:00 15:00 23:00 07:00 15:00 23:00 Intake Total 1100 ml 446 ml 1197 ml Balance 1100 ml 446 ml 1197 ml Intake Oral 120 ml IV Total 1100 ml 446 ml 1077 ml # Voids 3 # Bowel Movements 2 Result Diagram: 04/07/17 0726 04/06/17 1146 Imaging Last 72 hours Impressions Chest X-Ray 04/06/17 1132 Signed Impressions: Service Date/Time: Thursday, April 06, 2017 11:57 - CONCLUSION: Normal examination. Nam Ibanez MD Head CT 04/06/17 0000 Signed Impressions: Service Date/Time: Thursday, April 06, 2017 12:31 - CONCLUSION: No acute disease. Nam Ibanez MD Objective Remarks General: elderly male, lying down in bed, no distress, very alert, awake Skin: Has stage 1 skin breakdown on lower back, no opening of the skin. HEENT: Normocephalic, no conjunctivitis, no nasal discharge, oral mucosa moist Neck: No JVD CV: Mildly tachycardic, occasional extra beats, pulses distally are intact, appears well perfused, normal cap refill Lungs: CTAB Abdomen: Soft, nontender, nondistended, normal bowel sounds, incontinent of stool Ext: No swelling, no pain with palpation Neuro: Awake, alert, disoriented at baseline, history of dementia, does follow simple commands, knows who he is and date but does not know current date or where he is : Incontinence, urinated in bed A/P Assessment and Plan 81-year-old male with past medical history of dementia presents with severe sepsis with acute kidney injury most likely from a urinary tract infection. Discharge Planning Pending clinically stable status. Problem List: (1) Severe sepsis with acute organ dysfunction ICD Codes: A41.9 - Sepsis, unspecified organism; R65.20 - Severe sepsis without septic shock Status: Acute Plan: Upon admission he met severe sepsis criteria due to tachycardia, temperature up to 101.2, and elevated creatinine (end organ damage) that may or may not be new. Urinary tract infection is likely source. Lactic acid was normal. Chest x-ray was normal. UA has nitrites, large leukocyte esterase, moderate bacteria, and WBC. Has significant clinical improvement this morning. He is much more alert today. No leukocytosis. Has tachycardia, rhythm somewhat abnormal but may be PVC's. He does have a history of atrial fibrillation. - Follow urine and blood cultures. Urine so far with gram negative rods. - Continue Rocephin 1 g every 12 hours. - Continue NS at 150 mls/hr and monitor perfusion status. - Regular vital sign checks. (2) Urinary tract infection ICD Codes: N39.0 - Urinary tract infection, site not specified Status: Acute Plan: UA indicative of urinary tract infection, possibly pyelonephritis given picture of severe sepsis at admission. May have prostate enlargement causing obstruction and UTI. Also with stool incontinence that can contribute to UTI's. -Treatment as above with Rocephin IV -Obtain renal/bladder ultrasound. -Follow urine cultures and adjust antibiotics accordingly. - Monitor for fevers and leukocytosis, regular vital sign checks. (3) CARLEE (acute kidney injury) ICD Codes: N17.9 - Acute kidney failure, unspecified Status: Acute Plan: Elevated creatinine at 1.68, baseline creatinine 1.22 in October 2016. BUN/ Cr ratio is 18. May be mixed etiology with obstruction and prerenal disease secondary to sepsis. -Continue fluids as above -Avoid nephrotoxic agents - Obtain renal ultrasound, rule out obstruction (4) Tachycardia ICD Codes: R00.0 - Tachycardia, unspecified Status: Acute Plan: May be component of sepsis, but also has a history of atrial fibrillation. Rhythm abnormal on exam, but may be PVC's versus atrial fibrillation. - Lopressor 50 mg bid added. - Continue cardiac monitoring. (5) Dementia ICD Codes: F03.90 - Unspecified dementia without behavioral disturbance Status: Chronic Plan: History of dementia with behavioral disturbance -Holding sedating medications including sertraline, Seroquel, Xanax, and Ambien - Delirium precautions (6) Diabetes mellitus ICD Codes: E11.9 - Type 2 diabetes mellitus without complications Status: Chronic Plan: -Holding metformin 1000 mg by mouth twice a day after meals -Accu-Cheks with low-dose sliding scale insulin (7) Hypertension ICD Codes: I10 - Essential (primary) hypertension Status: Chronic Plan: -Continue amlodipine 5 mg by mouth daily -Continue lisinopril 10 mg by mouth daily -Lopressor 50 mg bid for tachycardia Clonidine 0.1 mg PO PRN SPP greater than 170, DBP greater than or equal to 100 (8) FEN/DVT PPX/GI PPX/Nursing Orders Plan: Fluids: NS @ 150 mls/hr IV Electrolytes: Will monitor and replace as needed Nutrition: Passed bedside swallow eval per nurse, full liquid with applesauce DVT Prophylaxis: Bilateral SCDs, Heparin subcutaneous Q8h Yunier Jenkins MD R3 Apr 07, 2017 15:25
[2017-04-07 16:11] LABS: BICARBONATE 28.2 MEQ/L (21.0-32.0); POTASSIUM 3.2 MEQ/L (3.5-5.1)
[2017-04-07 16:15] VITALS: BP 162/91; PULSE 104; RESP 18; TEMP 97.4; O2SAT 96
[2017-04-07] MEDS ORDERED: POTASSIUM CHLORIDE 10 MEQ CONTROLLED RELEASE TAB PO ONE (18:30)
[2017-04-07 20:00] VITALS: BP 166/93; PULSE 110; RESP 22; TEMP 97.6; O2SAT 94
[2017-04-07] MEDS: METOPROLOL TARTRATE 50 MG TAB PO SCH (20:48)
[2017-04-07] MEDS: TAMSULOSIN HCL 0.4 MG CAP PO SCH (20:48)
[2017-04-08] VITALS (8 sets, daily range): BP systolic 130–153; BP diastolic 60–108; PULSE 61–106; RESP 18–20; TEMP 97.4–99.1; O2SAT 96–98
[2017-04-08] MEDS: cefTRIAXone INJ 1,000 MG in SODIUM CHLORIDE 0.9% INJ 100 ML IV SCH ×2 (00:22→14:12)
[2017-04-08 06:20] LABS: AUTOMATED NEUTROPHIL # 3.2 TH/MM3 (1.8-7.7); BASOPHIL % 0.6 % (0.0-2.0); EOSINOPHIL % 0.3 % (0.0-4.0); HEMATOCRIT 32.1 % (39.0-51.0); HEMO FLAGS DIFF FINAL; LYMPH % 15.7 % (9.0-44.0); LYMPHOCYTE # 0.7 TH/MM3 (1.0-4.8); MEAN CELL VOLUME 88.4 FL (80.0-100.0); MEAN CORPUSCULAR HEMOGLOBIN 30.4 PG (27.0-34.0); MEAN CORPUSCULAR HGB CONC 34.3 % (32.0-36.0); MONO % 11.8 % (0.0-8.0); NEUT % 71.6 % (16.0-70.0); PLATELET COUNT 175 TH/MM3 (150-450); RED BLOOD COUNT 3.63 MIL/MM3 (4.50-5.90); RED CELL DISTRIBUTION WIDTH 13.4 % (11.6-17.2); WHITE BLOOD COUNT 4.5 TH/MM3 (4.0-11.0)
[2017-04-08] MEDS: HEPARIN SODIUM - SQ 10,000 UNITS/ML VIAL SQ SCH ×2 (06:26→17:45)
[2017-04-08 06:43] LABS: BICARBONATE 27.7 MEQ/L (21.0-32.0); POTASSIUM 3.7 MEQ/L (3.5-5.1)
[2017-04-08] MEDS: SPIRONOLACTONE 25 MG TAB PO SCH (10:22)
[2017-04-08] MEDS: LISINOPRIL 10 MG TAB PO SCH (10:22)
[2017-04-08] MEDS: METOPROLOL TARTRATE 50 MG TAB PO SCH ×2 (10:22→21:20)
[2017-04-08] MEDS: INSULIN ASPART SUPPLEMENTAL SCALE SQ SCH ×4 (10:24→21:00)
[2017-04-08] MEDS: QUEtiapine FUMARATE 25 MG TAB PO SCH (10:24)
[2017-04-08] MEDS: SERTRALINE HCL 50 MG TAB PO SCH (10:24)
[2017-04-08] MEDS: FUROSEMIDE 20 MG TAB PO SCH (10:28)
[2017-04-08] MEDS: INSULIN DETEMIR 100 UNITS/ML VIAL SQ SCH ×2 (10:28→21:20)
[2017-04-08] MEDS: ASPIRIN 81 MG CHEW TAB CHEW SCH (12:02)
--- NOTE | 2017-04-08 13:03 | HHI.FPPN ---
Subjective Remarks Mr Miranda had no acute events overnight; however, this morning his urine culture is positive for ESBL E coli. ID has been consulted for antibiotic selection. Pt states he is doing fine and has eaten all of his breakfast. Denies dysuria, CP, SOB, N/V/D and DVT leg pain. Objective Vitals Vital Signs Date Time Temp Pulse Resp B/P (MAP) Pulse Ox O2 Delivery O2 Flow Rate FiO2 04/08/17 12:10 98.1 102 20 152/108 (123) 98 04/08/17 07:35 98.5 61 20 133/60 (84) 96 04/08/17 05:05 92 04/08/17 04:00 98.3 87 18 141/78 (99) 97 04/08/17 00:17 99.1 106 19 138/80 (99) 97 04/07/17 20:00 97.6 110 22 166/93 (117) 94 04/07/17 16:15 97.4 104 18 162/91 (114) 96 I/O 04/07/17 04/07/17 04/07/17 04/08/17 04/08/17 04/08/17 07:00 15:00 23:00 07:00 15:00 23:00 Intake Total 1197 ml 240 ml 100 ml Balance 1197 ml 240 ml 100 ml Intake Oral 120 ml 240 ml IV Total 1077 ml 100 ml # Voids 3 2 3 # Bowel Movements 2 2 0 Result Diagram: 04/08/17 0600 04/08/17 0600 Imaging Last 48 hours Impressions Renal Ultrasound 04/07/17 0000 Signed Impressions: Service Date/Time: March 13:46 - CONCLUSION: 1. Enlarged prostate with diffusely thickened bladder wall. 2. Echogenic kidneys characteristic of medical renal disease. Mild right hydronephrosis. Evaristo Velazco MD Objective Remarks General: elderly male, lying down in bed, no distress, alert, awake Skin: Has stage 1 skin breakdown on lower back, no opening of the skin. No rashes or lesions. HEENT: Normocephalic, atrumatic. No conjunctivitis, no nasal discharge, MMM. Neck: No JVD. Nontender. Trachea midline. CV: Irregularly irregular, pulses distally are intact, appears well perfused, normal cap refill Lungs: CTAB. No increased WOB. Abdomen: Soft, nontender, nondistended, normal bowel sounds. Ext: No swelling, no pain with palpation. Moves all spontaneously. Neuro: Awake, alert, disoriented at baseline, history of dementia, does follow simple commands, knows who he is and date but does not know current date or where he is : Incontinence, urinated in bed Medications and IVs Current Medications Medications (Trade) Dose Ordered Sig/Michelle Route Start Time Stop Time Status Last Admin (Norvasc) 5 mg DAILY PO 04/07/17 09:00 Future Hold (Prinivil) 10 mg DAILY PO 04/07/17 09:00 04/08/17 10:22 (Flomax) 0.4 mg HS PO 04/06/17 21:00 04/07/17 20:48 (Heparin Inj) 5,000 units Q12H SQ 04/06/17 18:00 04/08/17 06:26 Ceftriaxone Sodium 1000 mg/ Sodium Chloride 100 ml @ 200 mls/hr Q12H IV 04/07/17 01:00 04/08/17 00:22 (D50w (Vial) Inj) 50 ml UNSCH PRN IV PUSH 04/06/17 15:30 (Glucagon Inj) 1 mg UNSCH PRN OTHER 04/06/17 15:30 (NovoLOG SUPPLEMENTAL SCALE) 1 ACHS SLIDING SCALE SQ 04/06/17 17:00 04/08/17 10:24 (Tylenol) 650 mg Q4H PRN PO 04/06/17 16:00 (Colace) 100 mg BID PRN PO 04/06/17 16:00 (Catapres) 0.1 mg Q6H PRN PO 04/06/17 16:00 (Zofran Inj) 4 mg Q6HR PRN IV PUSH 04/06/17 23:15 (Aldactone) 25 mg DAILY PO 04/07/17 09:00 04/08/17 10:22 (Lopressor) 50 mg Q12HR PO 04/07/17 21:00 04/08/17 10:22 Potassium Chloride 30 meq/ Sodium Chloride 1,015 ml @ 150 mls/hr Q6H46M IV 04/08/17 15:29 (Levemir Inj) 5 units Q12HR SQ 04/08/17 09:15 04/08/17 10:28 (Lasix) 20 mg DAILY PO 04/08/17 09:15 04/08/17 10:28 (SEROquel) 25 mg DAILY PO 04/08/17 09:15 04/08/17 10:24 (Zoloft) 50 mg DAILY PO 04/08/17 09:15 04/08/17 10:24 (Catapres) 0.1 mg Q6H PRN PO 04/08/17 09:15 (Aspirin Chew) 81 mg DAILY CHEW 04/08/17 11:45 Urinary Catheter: No Vascular Central Line Catheter: No A/P Assessment and Plan 81-year-old male with past medical history of dementia presents with severe sepsis with acute kidney injury 2/2 pyelonephritis vs UTI. Pt with ESBL E. coli pyelonephritis on urine cx with renal US showing mild hydronephrosis. Seen and discussed with Dr Waters Discharge Planning Pending clinically stable status. Problem List: (1) Pyelonephritis ICD Codes: N12 - Tubulo-interstitial nephritis, not specified as acute or chronic Status: Acute Plan: Urine cx positive ESBL E Coli plus renal US 04/07 showing mild right hydronephrosis with enlarged prostate and bladder thickening -ID consulted and will follow recommendations -Rocephin 1g q12h; will change based on ID recs -Urology consult 04/08 to assess -CARLEE resolving w/Cr 1.68->1.41 (2) Severe sepsis with acute organ dysfunction ICD Codes: A41.9 - Sepsis, unspecified organism; R65.20 - Severe sepsis without septic shock Status: Acute Plan: Upon admission he met severe sepsis criteria due to tachycardia, temperature up to 101.2, and elevated creatinine (end organ damage) that may or may not be new. Urinary tract infection is likely source. Lactic acid was normal. Chest x-ray was normal. UA has nitrites, large leukocyte esterase, moderate bacteria, and WBC. Has significant clinical improvement this morning. He is much more alert today. No leukocytosis. Has tachycardia, rhythm somewhat abnormal but may be PVC's. He does have a history of atrial fibrillation. 04/08: afebrile, WBC 4.3, alert and oriented; irregular heartbeat; positive urine cx - Follow urine and blood cultures. --Urine cx positive for ESBL E coli. ID consulted 04/08 to assist in abx selection --Blood cx NGTD x2 days - Continue Rocephin 1 g q12h; will change per ID recs - Discontinue IVF--Tolerating PO, well perfused - Regular vital sign checks. (3) Urinary tract infection ICD Codes: N39.0 - Urinary tract infection, site not specified Status: Acute Plan: UA indicative of urinary tract infection, possibly pyelonephritis given picture of severe sepsis at admission. May have prostate enlargement causing obstruction and UTI. Also with stool incontinence that can contribute to UTI's. -- Updating Dx to pyelonephritis on 04/08 -Treatment as above with Rocephin IV -Renal/bladder ultrasound 04/07 showing mild right hydronephrosis with thickened bladder -Urine cx positive for ESBL E coli--ID consulted as above -Monitor for fevers and leukocytosis, regular vital sign checks. (4) BPH (benign prostatic hyperplasia) ICD Codes: N40.0 - Benign prostatic hyperplasia without lower urinary tract symptoms Plan: Pt with enlarged prostate on renal US, mild hydronephrosis, thickened bladder. Consider urinary obstruction -Change Flomax 0.4mg/daily to BID 04/08 -Urology consult to assist in mgmt; appreciate recommendations (5) CARLEE (acute kidney injury) ICD Codes: N17.9 - Acute kidney failure, unspecified Status: Acute Plan: Elevated creatinine at 1.68 on admit, baseline creatinine 1.22 in October 2016. BUN/Cr ratio is 18. May be mixed etiology with obstruction and prerenal disease secondary to sepsis. -Discontinue IVF as above but monitor pt PO; has been drinking regularly so far -Avoid nephrotoxic agents -Renal US results as above -CARLEE resolving as Cr 1.41 04/08 (6) Atrial fibrillation ICD Codes: I48.91 - Unspecified atrial fibrillation Plan: Pt with Hx Afib with irregularly irregular heartbeat on exam today; however, rate controlled CHADS-VASC score 4 for age, HTN, and DM -Continue Lopressor 50mg BID -Aspirin chew 81mg daily--to continue on discharge as pt may not be a good risk for anticoagulation via other means (7) Tachycardia ICD Codes: R00.0 - Tachycardia, unspecified Status: Acute Plan: May be component of sepsis, but also has a history of atrial fibrillation. Rhythm abnormal on exam, but may be PVC's versus atrial fibrillation. -Irregular HR on exam today, rate wnl - Lopressor 50 mg bid - Continue cardiac monitoring (8) Dementia ICD Codes: F03.90 - Unspecified dementia without behavioral disturbance Status: Chronic Plan: History of dementia with behavioral disturbance -Holding sedating medications including Xanax and Ambien -Started home meds Sertraline and Seroquel 04/08 -Delirium precautions (9) Diabetes mellitus ICD Codes: E11.9 - Type 2 diabetes mellitus without complications Status: Chronic Plan: Pt with DM. A1C pending. Blood glucose 180-290 overnight; 5units SSI given -Holding metformin 1000 mg by mouth twice a day after meals -Accu-Cheks with low-dose sliding scale insulin -Start Levemir 5 units BID 04/08 (10) Hypertension ICD Codes: I10 - Essential (primary) hypertension Status: Chronic Plan: Pt with BP to 166/93 overnight -Discontinued amlodipine 5 mg by mouth daily 04/07 -Continue lisinopril 10 mg by mouth daily -Lopressor 50 mg bid for tachycardia -Spironolactone 25mg daily -Start Clonidine 0.1 mg PO PRN SBP >160, DBP >90 (11) FEN/DVT PPX/GI PPX/Nursing Orders Plan: Fluids: discontinue IVF 04/08; pt tolerating PO intake and drinking adequately Electrolytes: Will monitor and replace as needed Nutrition: Passed bedside swallow eval per nurse, full liquid with applesauce DVT Prophylaxis: Bilateral SCDs, Heparin subcutaneous Q8h No PPI indicated PT at rehab per PT note Yrn Mckeon MD R1 Apr 08, 2017 13:03
--- NOTE | 2017-04-08 13:18 | EKG ---
Date Performed: 04/07/2017 Time Performed: 21:11:29 PTAGE: 81 years EKG: SINUS TACHYCARDIA Since previous tracing, no significant change noted ABNORMAL RHYTHM ECG PREVIOUS TRACING : 04/07/2017 00.10 DOCTOR: Braxton Campos Interpretating Date/Time 04/08/2017 13:16:24
[2017-04-08] MEDS ORDERED: MISCELLANEOUS PHARMACY INFORMATION XX PRN (15:00)
[2017-04-08] MEDS ORDERED: ASP: Documented ESBL, MDR A baumannii or P. aeruginosa PRN (15:00)
--- NOTE | 2017-04-08 15:01 | PD.ID.CON ---
History of Present Illness Service ID Consult Requested By Dr Mckeon Reason for Consult ESBL+ UTI Primary Care Physician Unknown Diagnoses: History of Present Illness 81-year-old male with a history of dementia on hospice for dementia presents to the ER for evaluation of obtundation and fever to 102. Urine wa showed innumerable leukocytes and a chest x-ray was negative Urine clx growing ESBL + E.coli renal US showed Enlarged prostate with diffusely thickened bladder wall Review of Systems ROS Limitations: Clinical Condition, Altered Mental Status Past Family Social History Allergies: Coded Allergies: No Known Allergies (Verified Allergy, Unknown, 04/06/17) Past Medical History HTN, DM, dementia BPH Past Surgical History hernia repair Active Ordered Medications Medications where reviewed in EMR Antibiotics Include: CFTX Physical Exam Vital Signs Vital Signs Date Time Temp Pulse Resp B/P (MAP) Pulse Ox O2 Delivery O2 Flow Rate FiO2 04/08/17 12:10 98.1 102 20 152/108 (123) 98 04/08/17 07:35 98.5 61 20 133/60 (84) 96 04/08/17 05:05 92 04/08/17 04:00 98.3 87 18 141/78 (99) 97 04/08/17 00:17 99.1 106 19 138/80 (99) 97 04/07/17 20:00 97.6 110 22 166/93 (117) 94 04/07/17 16:15 97.4 104 18 162/91 (114) 96 Physical Exam CONSTITUTIONAL/GENERAL: This is an adequately nourished patient, in no apparent distress. TUBES/LINES/DRAINS: SKIN: No jaundice, rashes, or lesions. Skin temperature appropriate. Not diaphoretic. HEAD: Atraumatic. Normocephalic. EYES: Pupils equal and round and reactive. Extraocular motions intact. No scleral icterus. No injection or drainage. Fundi not examined. ENT: Hearing grossly normal. Nose without bleeding or purulent drainage. Throat without visible erythema, exudates, masses, or lesions. NECK: Trachea midline. Supple, nontender. CARDIOVASCULAR: Regular rate and rhythm without murmurs, gallops, or rubs. No JVD. Peripheral pulses symmetric. RESPIRATORY/CHEST: Symmetric, unlabored respirations. Clear to auscultation. Breath sounds equal bilaterally. No wheezes, rales, or rhonchi. GASTROINTESTINAL: Abdomen soft, non-tender, nondistended. No hepato-splenomegaly , or palpable masses. No guarding. Bowel sounds present. GENITOURINARY: Without palpable bladder distension. MUSCULOSKELETAL: Extremities without clubbing, cyanosis, or edema. No joint tenderness or effusion noted. No calf tenderness. No mottling or clubbing. LYMPHATICS: No palpable cervical or supraclavicular adenopathy. NEUROLOGICAL: Awake and alert. Motor and sensory grossly within normal limits. Follows commands. Very confused, speech incoherent . Moves all extremities. PSYCHIATRIC: calm, flat affect Laboratory Laboratory Tests Test 04/07/17 15:43 04/08/17 06:00 Blood Urea Nitrogen 27 33 Creatinine 1.43 1.41 Random Glucose 180 181 Calcium Level 7.6 8.1 Sodium Level 142 143 Potassium Level 3.2 3.7 Chloride Level 105 109 Carbon Dioxide Level 28.2 27.7 Anion Gap 9 6 Estimat Glomerular Filtration Rate 48 48 White Blood Count 4.5 Red Blood Count 3.63 Hemoglobin 11.0 Hematocrit 32.1 Mean Corpuscular Volume 88.4 Mean Corpuscular Hemoglobin 30.4 Mean Corpuscular Hemoglobin Concent 34.3 Red Cell Distribution Width 13.4 Platelet Count 175 Mean Platelet Volume 8.6 Neutrophils (%) (Auto) 71.6 Lymphocytes (%) (Auto) 15.7 Monocytes (%) (Auto) 11.8 Eosinophils (%) (Auto) 0.3 Basophils (%) (Auto) 0.6 Neutrophils # (Auto) 3.2 Lymphocytes # (Auto) 0.7 Monocytes # (Auto) 0.5 Eosinophils # (Auto) 0.0 Basophils # (Auto) 0.0 CBC Comment DIFF FINAL Differential Comment Date/Time Source Procedure Growth Status 04/06/17 12:03 Blood Peripheral Aerobic Blood Culture - Preliminary NO GROWTH IN 2 DAYS Resulted 04/06/17 12:03 Blood Peripheral Anaerobic Blood Culture - Preliminary NO GROWTH IN 2 DAYS Resulted 04/06/17 11:45 Urine Catheterized Urine Urine Culture - Final Escherichia Coli Esbl Positive Complete Result Diagram: 04/08/17 0600 04/08/17 0600 Imaging Last Impressions Renal Ultrasound 04/07/17 0000 Signed Impressions: Service Date/Time: March 13:46 - CONCLUSION: 1. Enlarged prostate with diffusely thickened bladder wall. 2. Echogenic kidneys characteristic of medical renal disease. Mild right hydronephrosis. Evaristo Velazco MD Chest X-Ray 04/06/17 1132 Signed Impressions: Service Date/Time: Thursday, April 06, 2017 11:57 - CONCLUSION: Normal examination. Nam Ibanez MD Head CT 04/06/17 0000 Signed Impressions: Service Date/Time: Thursday, April 06, 2017 12:31 - CONCLUSION: No acute disease. Nam Ibanez MD Assessment and Plan Assessment and Plan UTI in the settings of BPH, ESBL + Prostatic enlargement with markedly bladder wall increased thickness CKD ? Pt is demented dc CFTX start Ertapenem monitor creatinine monitor bladder residuals will need urology eval for bladder findings Angelina Ramirez MD Apr 08, 2017 15:01
--- NOTE | 2017-04-08 15:05 | ECHRPT ---
Indication: Atherosclerosis of coronary artery bypass graft(s), unspecified, with unstable angina pectoris CONCLUSIONS The left ventricular systolic function is severely reduced with an estimated ejection fraction in th e range of 25-30%. Wall thickness is measured at the upper limits of normal. Normal left ventricular size. Mild mitral valve regurgitation. Mild aortic valve stenosis. Aortic valve area is 1.9 cm. Moderately dilated left ventricle. There is global left ventricular dysfunction. Aortic valve mean gradient is 13 mmHg. Severe thickening of the aortic valve leaflets. BP: 143 / 82 HR: 106 Rhythm: Sinus MEASUREMENTS (Male / Female) Normal Values Technical Quality:Fair 2D ECHO LV Diastolic Diameter PLAX 6.3 cm 4.2 - 5.9 / 3.9 - 5.3 cm LV Systolic Diameter PLAX 5.5 cm IVS Diastolic Thickness 1.0 cm 0.6 - 1.0 / 0.6 - 0.9 cm LVPW Diastolic Thickness 1.0 cm 0.6 - 1.0 / 0.6 - 0.9 cm LV Relative Wall Thickness 0.3 LVOT Diameter 2.8 cm M-MODE Aortic Root Diameter MM 3.3 cm LA Systolic Diameter MM 3.3 cm LA Ao Ratio MM 1.0 AV Cusp Separation MM 2.1 cm DOPPLER AV Peak Velocity 232.4 cm/s AV Peak Gradient 21.6 mmHg AV Mean Gradient 13.0 mmHg AV Velocity Time Integral 51.1 cm LVOT Peak Velocity 71.8 cm/s LVOT Peak Gradient 2.1 mmHg AV Area Cont Eq pk 1.9 cm MR Peak Velocity 383.5 cm/s MR Peak Gradient 58.8 mmHg PV Peak Velocity 107.0 cm/s PV Peak Gradient 4.6 mmHg FINDINGS LEFT VENTRICLE The left ventricular systolic function is severely reduced with an estimated ejection fraction in th e range of 25-30%. Wall thickness is measured at the upper limits of normal. Moderately dilated left ventricle. There is global left ventricular dysfunction. RIGHT VENTRICLE Normal right ventricular size and systolic function. LEFT ATRIUM The left atrial size is normal. RIGHT ATRIUM The right atrial size is normal. ATRIAL SEPTUM Normal atrial septal thickness without atrial level shunting by limited color doppler interrogation. AORTA The aortic root and proximal ascending aorta are normal in size on limited imaging. MITRAL VALVE Mild mitral valve regurgitation. AORTIC VALVE Mild aortic valve stenosis. Aortic valve area is 1.9 cm. Aortic valve mean gradient is 13 mmHg. Severe thickening of the aortic valve leaflets. TRICUSPID VALVE Structurally normal tricuspid valve. No tricuspid valve stenosis or regurgitation. PULMONARY VALVE The pulmonary valve is not well visualized. VESSELS The inferior vena cava is normal in size. PERICARDIUM No pericardial effusion. Nam Rodriguez MD, FACC (Electronically Signed) Final Date:08 April 2017 15:04
[2017-04-08] MEDS ORDERED: POTASSIUM CHLORIDE INJ 30 MEQ in SODIUM CHLOR 0.9% 1000 ML INJ 1,000 ML IV SCH (15:29)
[2017-04-08] MEDS: ERTAPENEM INJ 1,000 MG in SODIUM CHLORIDE 0.9% INJ 100 ML IV SCH (17:45)
--- NOTE | 2017-04-08 18:08 | PD.CONS ---
HPI Service Urology Consult Requested By Reason for Consult BPH, UTI Primary Care Physician Unknown Diagnosis: History of Present Illness 81yo male with history of HTN, DM, and dementia seen in consultation for UTI and large prostate noted on ultrasound. Patient denies any issues voiding, however he is incontinent of urine and stool. No blood in the urine. PVR shows less than 200cc in the bladder. He was found to have ESBL in his urine and admitted with fever >102. He has since improved with abx. No catheter in place at this time. Review of Systems ROS Limitations: Clinical Condition, Altered Mental Status Constitutional: DENIES: Fever Eyes: DENIES: Blurred vision Ears, nose, mouth, throat: DENIES: Hearing loss Respiratory: DENIES: Cough Cardiovascular: DENIES: Chest pain Gastrointestinal: DENIES: Abdominal pain Genitourinary: COMPLAINS OF: Urinary frequency, Urinary incontinence, DENIES: Hematuria Hematologic/lymphatic: DENIES: Bruising Neurologic: DENIES: Headache Psychiatric: DENIES: Anxiety Except as stated in HPI: all other systems reviewed are Neg Past Family Social History Past Medical History -Dementia - confused at baseline -Diabetes -Hypertension -Hyperlipidemia -Spinal stenosis -Incontinent of stool and urine Past Surgical History Hernia surgery many years ago Appendectomy Reported Medications Reported Meds & Active Scripts Active Reported Ambien (Zolpidem Tartrate) 10 Mg Tab 10 Mg PO HS PRN Xanax (Alprazolam) 0.5 Mg Tab 0.5 Mg PO Q6H PRN Seroquel (Quetiapine Fumarate) 25 Mg Tab 25 Mg PO DAILY Lasix (Furosemide) 20 Mg Tab 20 Mg PO DAILY Aldactone (Spironolactone) 25 Mg Tab 25 Mg PO DAILY Clonidine (Clonidine HCl) 0.1 Mg Tab 0.1 Mg PO BID Tamsulosin (Tamsulosin HCl) 0.4 Mg Cap 0.4 Mg PO HS Amlodipine (Amlodipine Besylate) 5 Mg Tab 5 Mg PO DAILY Lisinopril 10 Mg Tab 10 Mg PO DAILY Zoloft (Sertraline HCl) 50 Mg Tab 50 Mg PO DAILY Metformin (Metformin HCl) 1,000 Mg Tab 1,000 Mg PO BIDPC With meals Allergies: Coded Allergies: No Known Allergies (Verified Allergy, Unknown, 04/06/17) Active Ordered Medications Current Medications Medications (Trade) Dose Ordered Sig/Michelle Route Start Time Stop Time Status Last Admin (Norvasc) 5 mg DAILY PO 04/07/17 09:00 Future Hold (Prinivil) 10 mg DAILY PO 04/07/17 09:00 04/08/17 10:22 (Heparin Inj) 5,000 units Q12H SQ 04/06/17 18:00 04/08/17 06:26 (D50w (Vial) Inj) 50 ml UNSCH PRN IV PUSH 04/06/17 15:30 (Glucagon Inj) 1 mg UNSCH PRN OTHER 04/06/17 15:30 (NovoLOG SUPPLEMENTAL SCALE) 1 ACHS SLIDING SCALE SQ 04/06/17 17:00 04/08/17 14:12 (Tylenol) 650 mg Q4H PRN PO 04/06/17 16:00 (Colace) 100 mg BID PRN PO 04/06/17 16:00 (Catapres) 0.1 mg Q6H PRN PO 04/06/17 16:00 04/08/17 12:01 (Zofran Inj) 4 mg Q6HR PRN IV PUSH 04/06/17 23:15 (Aldactone) 25 mg DAILY PO 04/07/17 09:00 04/08/17 10:22 (Lopressor) 50 mg Q12HR PO 04/07/17 21:00 04/08/17 10:22 (Levemir Inj) 5 units Q12HR SQ 04/08/17 09:15 04/08/17 10:28 (Lasix) 20 mg DAILY PO 04/08/17 09:15 04/08/17 10:28 (SEROquel) 25 mg DAILY PO 04/08/17 09:15 04/08/17 10:24 (Zoloft) 50 mg DAILY PO 04/08/17 09:15 04/08/17 10:24 (Catapres) 0.1 mg Q6H PRN PO 04/08/17 09:15 (Aspirin Chew) 81 mg DAILY CHEW 04/08/17 11:45 04/08/17 12:02 (Flomax) 0.4 mg BID PO 04/08/17 21:00 (ASP Crit: Doc ESBL, MDR A baumannii or P aer) 1 UNSCH X1 PRN .XX 04/08/17 15:00 04/09/17 14:59 [place] 1 UNSCH X1 PRN XX 04/08/17 15:00 04/09/17 14:59 Ertapenem 1000 mg/ Sodium Chloride 100 ml @ 200 mls/hr Q24H IV 04/08/17 16:00 Family History -He is off [place] descent -At least one brother had diabetes -Mom had dementia Social History -Patient's denies that he ever smoked, used alcohol, or used illicit drugs -Leaves at [facility] sings December 2016 -Patient has been in hospice with [facility] since July 2016. He has been full code because his hospice does not require a DNR status. Physical Exam Vital Signs Date Time Temp Pulse Resp B/P (MAP) Pulse Ox O2 Delivery O2 Flow Rate FiO2 04/08/17 16:13 98.3 62 20 130/75 (93) 96 04/08/17 12:10 98.1 102 20 152/108 (123) 98 04/08/17 07:35 98.5 61 20 133/60 (84) 96 04/08/17 05:05 92 04/08/17 04:00 98.3 87 18 141/78 (99) 97 04/08/17 00:17 99.1 106 19 138/80 (99) 97 04/07/17 20:00 97.6 110 22 166/93 (117) 94 Physical Exam GENERAL: This is a well-nourished, well-developed patient, in no apparent distress. SKIN: No rashes, ecchymoses or lesions. Cool and dry. HEAD: Atraumatic. Normocephalic. EYES: Extraocular motions intact. No scleral icterus. No injection or drainage. ENT: Nose without bleeding, purulent drainage. Airway patent. NECK: Trachea midline. CARDIOVASCULAR: Normal pulse RESPIRATORY: Nonlabored, equal chest rise GASTROINTESTINAL: Abdomen soft, non-tender, nondistended MUSCULOSKELETAL: Extremities without clubbing, cyanosis, or edema. NEUROLOGICAL: Awake and alert, not oriented. Motor and sensory grossly within normal limits. Normal speech. Lab results reviewed: Yes Laboratory Tests Test 04/08/17 06:00 White Blood Count 4.5 Red Blood Count 3.63 Hemoglobin 11.0 Hematocrit 32.1 Mean Corpuscular Volume 88.4 Mean Corpuscular Hemoglobin 30.4 Mean Corpuscular Hemoglobin Concent 34.3 Red Cell Distribution Width 13.4 Platelet Count 175 Mean Platelet Volume 8.6 Neutrophils (%) (Auto) 71.6 Lymphocytes (%) (Auto) 15.7 Monocytes (%) (Auto) 11.8 Eosinophils (%) (Auto) 0.3 Basophils (%) (Auto) 0.6 Neutrophils # (Auto) 3.2 Lymphocytes # (Auto) 0.7 Monocytes # (Auto) 0.5 Eosinophils # (Auto) 0.0 Basophils # (Auto) 0.0 CBC Comment DIFF FINAL Differential Comment Blood Urea Nitrogen 33 Creatinine 1.41 Random Glucose 181 Calcium Level 8.1 Sodium Level 143 Potassium Level 3.7 Chloride Level 109 Carbon Dioxide Level 27.7 Anion Gap 6 Estimat Glomerular Filtration Rate 48 Date/Time Source Procedure Growth Status 04/06/17 12:03 Blood Peripheral Aerobic Blood Culture - Preliminary NO GROWTH IN 2 DAYS Resulted 04/06/17 12:03 Blood Peripheral Anaerobic Blood Culture - Preliminary NO GROWTH IN 2 DAYS Resulted 04/06/17 11:45 Urine Catheterized Urine Urine Culture - Final Escherichia Coli Esbl Positive Complete Result Diagram: 04/08/17 0600 04/08/17 0600 Personally reviewed images: Yes Imaging Last Impressions Renal Ultrasound 04/07/17 0000 Signed Impressions: Service Date/Time: March 13:46 - CONCLUSION: 1. Enlarged prostate with diffusely thickened bladder wall. 2. Echogenic kidneys characteristic of medical renal disease. Mild right hydronephrosis. Evaristo Velazco MD Chest X-Ray 04/06/17 1132 Signed Impressions: Service Date/Time: Thursday, April 06, 2017 11:57 - CONCLUSION: Normal examination. Nam Ibanez MD Head CT 04/06/17 0000 Signed Impressions: Service Date/Time: Thursday, April 06, 2017 12:31 - CONCLUSION: No acute disease. Nam Ibanez MD Assessment and Plan Problem List: (1) BPH (benign prostatic hyperplasia) ICD Code: N40.0 - Benign prostatic hyperplasia without lower urinary tract symptoms (2) Urinary tract infection ICD Code: N39.0 - Urinary tract infection, site not specified Status: Acute (3) Dementia ICD Code: F03.90 - Unspecified dementia without behavioral disturbance Status: Chronic Assessment and Plan -PVR with less than 200cc. No need for lutz catheter -Continue abx for UTI per ID recommendations -Agree with Flomax. This is to continue after discharge and may be increased to BID if necessary -No other urological intervention indicated at this time -Patient may follow-up with Urology in clinic after discharge -Please call with questions Jose Dobson MD Apr 08, 2017 18:08
[2017-04-08] MEDS: TAMSULOSIN HCL 0.4 MG CAP PO SCH (21:20)
[2017-04-08 21:50] LABS: HEMOGLOBIN A1a 2.8 %
[2017-04-08 21:51] LABS: HEMOGLOBIN A1b 2.3 %; HEMOGLOBIN Ao 81.5 %; HEMOGLOBIN LA1C 1.8 %; HEMOGLOBIN P3 4.1 %
[2017-04-09] VITALS (12 sets, daily range): BP systolic 95–199; BP diastolic 62–88; PULSE 50–98; RESP 16–20; TEMP 97.1–98.4; O2SAT 94–98
[2017-04-09] MEDS: cloNIDine HCL 0.1 MG TAB PO PRN ×2 (00:14→06:00)
[2017-04-09] MEDS: HEPARIN SODIUM - SQ 10,000 UNITS/ML VIAL SQ SCH ×2 (06:00→17:12)
[2017-04-09] MEDS: INSULIN ASPART SUPPLEMENTAL SCALE SQ SCH ×4 (08:00→21:07)
--- NOTE | 2017-04-09 08:27 | HHI.FPPN ---
Subjective Remarks Mr. Miranda was not very conversational this morning and stated that he was not ready to eat his breakfast. Bedside nurse states that he had been more sleepy and quiet than usual. However, he indicated that he is not in any pain and denies dysuria. Objective Vitals Vital Signs Date Time Temp Pulse Resp B/P (MAP) Pulse Ox O2 Delivery O2 Flow Rate FiO2 04/09/17 08:06 97.5 54 17 95/62 (73) 98 04/09/17 05:33 98.4 50 18 161/75 (103) 96 04/09/17 02:57 73 04/09/17 01:45 100/66 (77) 04/09/17 00:43 97.1 89 18 157/84 (108) 94 04/08/17 23:05 96 Nasal Cannula 3.00 04/08/17 21:38 97.4 75 20 153/91 (111) 96 04/08/17 16:13 98.3 62 20 130/75 (93) 96 04/08/17 12:10 98.1 102 20 152/108 (123) 98 I/O 04/08/17 04/08/17 04/08/17 04/09/17 04/09/17 04/09/17 07:00 15:00 23:00 07:00 15:00 23:00 Intake Total 100 ml 600 ml 100 ml Balance 100 ml 600 ml 100 ml Intake Oral 600 ml IV Total 100 ml 100 ml # Voids 3 3 1 # Bowel Movements 0 0 1 Result Diagram: 04/08/17 0600 04/08/17 0600 Objective Remarks General: elderly male, lying down in bed, no distress, alert, awake Skin: Has stage 1 skin breakdown on lower back, no opening of the skin. No rashes or lesions. HEENT: Normocephalic, atraumatic. No conjunctivitis, no nasal discharge, MMM. Neck: No JVD. Nontender. Trachea midline. CV: Irregularly irregular, bradycardic, pulses distally are intact, appears well perfused, normal cap refill Lungs: CTAB. No increased WOB. Abdomen: Soft, nontender, nondistended, normal bowel sounds. Ext: No swelling, no pain with palpation. Moves all spontaneously. Neuro: Awake, alert, disoriented at baseline, history of dementia, does follow simple commands A/P Assessment and Plan 81-year-old male with past medical history of dementia presented with severe sepsis with acute kidney injury 2/2 pyelonephritis vs UTI. Pt with ESBL E. coli pyelonephritis on urine cx with renal US showing mild hydronephrosis. Discussed with Dr Waters Discharge Planning Pending clinically stable status. Problem List: (1) Pyelonephritis ICD Codes: N12 - Tubulo-interstitial nephritis, not specified as acute or chronic Status: Acute Plan: Urine cx positive ESBL E Coli plus renal US 04/07 showing mild right hydronephrosis with enlarged prostate and bladder thickening -ID consulted - continue ertapenem -Urology consulted on 04/08: not a candidate for intervention at this time. Continue Flomax 0.4mg BID -CARLEE resolved w/Cr 1.68->1.41>1.12 (2) Severe sepsis with acute organ dysfunction ICD Codes: A41.9 - Sepsis, unspecified organism; R65.20 - Severe sepsis without septic shock Status: Acute Plan: Upon admission he met severe sepsis criteria due to tachycardia, temperature up to 101.2, and elevated creatinine (end organ damage) that may or may not be new. Urinary tract infection is likely source. Lactic acid was normal. Chest x-ray was normal. UA has nitrites, large leukocyte esterase, moderate bacteria, and WBC. Has significant clinical improvement this morning. He is much more alert today. No leukocytosis. Had tachycardia on admission, rhythm somewhat abnormal but may be PVC's. He does have a history of atrial fibrillation. 04/09: afebrile, WBC 5.0, alert and oriented; irregular heartbeat - Follow urine and blood cultures --Urine cx positive for ESBL E coli. Started on ertapenem on 04/08 by ID --Blood cx NGTD x2 days - Regular vital sign checks (3) Atrial fibrillation ICD Codes: I48.91 - Unspecified atrial fibrillation Plan: Pt with Hx Afib but pt has bradycardic, irregularly irregular heartbeat on exam today EKG ordered on 04/09 and shows sinus bradycardia (HR 60) with frequent supraventricular complexes -Holding Lopressor this am due to bradycardia -Continue cardiac monitoring For AFIB: CHADS-VASC score 4 for age, HTN, and DM -Aspirin chew 81mg daily--to continue on discharge as pt may not be a good risk for anticoagulation via other means (4) CARLEE (acute kidney injury) ICD Codes: N17.9 - Acute kidney failure, unspecified Status: Resolved Plan: Elevated creatinine at 1.68 on admit, baseline creatinine 1.22 in October 2016. BUN/Cr ratio is 18. May be mixed etiology with obstruction and prerenal disease secondary to sepsis. -CARLEE resolved as Cr 1.12 today 04/09 -Continue oral fluids -Avoid nephrotoxic agents -Renal US results as above (5) BPH (benign prostatic hyperplasia) ICD Codes: N40.0 - Benign prostatic hyperplasia without lower urinary tract symptoms Plan: Pt with enlarged prostate on renal US, mild hydronephrosis, thickened bladder. Consider urinary obstruction -Continue Flomax 0.4mg (6) Dementia ICD Codes: F03.90 - Unspecified dementia without behavioral disturbance Status: Chronic Plan: History of dementia with behavioral disturbance -Holding sedating medications including Xanax and Ambien -Continue home meds Sertraline -Hold Seroquel today because he was less active and was sleepy this morning -Delirium precautions (7) Diabetes mellitus ICD Codes: E11.9 - Type 2 diabetes mellitus without complications Status: Chronic Plan: Pt with DM. A1C 7.1. Blood glucose 127-132 overnight -Holding metformin 1000 mg by mouth twice a day after meals -Accu-Cheks with low-dose sliding scale insulin -Continue Levemir 5 units BID 04/08 (8) Hypertension ICD Codes: I10 - Essential (primary) hypertension Status: Chronic Plan: BP 95/62 this am -Holding Lopressor, lisinopril, and spironolactone this a.m. -Holding amlodipine 5 mg by mouth daily 04/07 -Start Clonidine 0.1 mg PO PRN SBP >160, DBP >90 (9) FEN/DVT PPX/GI PPX/Nursing Orders Plan: Fluids: oral fluids only Electrolytes: Will monitor and replace as needed Nutrition: Diabetic diet, mechanical soft with no liquid restrictions DVT Prophylaxis: Bilateral SCDs, Heparin subcutaneous Q8h No PPI indicated PT at rehab per PT note EkoAna Rosa MD R2 Apr 09, 2017 08:26
[2017-04-09 08:40] LABS: AUTOMATED NEUTROPHIL # 3.4 TH/MM3 (1.8-7.7); BASOPHIL % 0.5 % (0.0-2.0); EOSINOPHIL # 0.1 TH/MM3 (0-0.4); EOSINOPHIL % 1.2 % (0.0-4.0); HEMATOCRIT 30.5 % (39.0-51.0); HEMO FLAGS DIFF FINAL; LYMPHOCYTE # 0.9 TH/MM3 (1.0-4.8); MEAN CELL VOLUME 86.8 FL (80.0-100.0); MEAN CORPUSCULAR HEMOGLOBIN 30.4 PG (27.0-34.0); MONO % 12.7 % (0.0-8.0); NEUT % 67.6 % (16.0-70.0); PLATELET COUNT 186 TH/MM3 (150-450); RED BLOOD COUNT 3.51 MIL/MM3 (4.50-5.90); RED CELL DISTRIBUTION WIDTH 12.9 % (11.6-17.2)
[2017-04-09] MEDS: METOPROLOL TARTRATE 50 MG TAB PO SCH (08:55)
[2017-04-09] MEDS: LISINOPRIL 10 MG TAB PO SCH (08:55)
[2017-04-09 09:06] LABS: BICARBONATE 25.6 MEQ/L (21.0-32.0); POTASSIUM 3.4 MEQ/L (3.5-5.1)
[2017-04-09] MEDS: INSULIN DETEMIR 100 UNITS/ML VIAL SQ SCH ×2 (09:29→21:07)
[2017-04-09] MEDS ORDERED: POTASSIUM CHLORIDE 10 MEQ CONTROLLED RELEASE TAB PO ONE (10:00)
[2017-04-09] MEDS: QUEtiapine FUMARATE 25 MG TAB PO SCH (10:25)
[2017-04-09] MEDS: ASPIRIN 81 MG CHEW TAB CHEW SCH (10:25)
[2017-04-09] MEDS: TAMSULOSIN HCL 0.4 MG CAP PO SCH ×2 (10:25→21:06)
[2017-04-09] MEDS: SERTRALINE HCL 50 MG TAB PO SCH (10:25)
[2017-04-09] MEDS ORDERED: POTASSIUM CHLORIDE 25 MEQ EFFERVESCENT TAB PO ONE (10:30)
[2017-04-09] MEDS: SPIRONOLACTONE 25 MG TAB PO SCH (10:38)
[2017-04-09] MEDS: FUROSEMIDE 20 MG TAB PO SCH (10:38)
--- NOTE | 2017-04-09 12:41 | HHI.IDPN ---
Subjective Subjective Remarks pt is confused and non cooperative Had 4 voids today ESBL+ E.coli in the urine, negative blood clx Antibiotics Ertapenem Allergies: Coded Allergies: No Known Allergies (Verified Allergy, Unknown, 04/06/17) Objective . Vital Signs Date Time Temp Pulse Resp B/P (MAP) Pulse Ox O2 Delivery O2 Flow Rate FiO2 04/09/17 10:35 97.9 52 16 166/76 (106) 95 04/09/17 08:06 97.5 54 17 95/62 (73) 98 04/09/17 05:33 98.4 50 18 161/75 (103) 96 04/09/17 02:57 73 04/09/17 01:45 100/66 (77) 04/09/17 00:43 97.1 89 18 157/84 (108) 94 04/08/17 23:05 96 Nasal Cannula 3.00 04/08/17 21:38 97.4 75 20 153/91 (111) 96 04/08/17 16:13 98.3 62 20 130/75 (93) 96 . Laboratory Tests Test 04/08/17 06:00 04/09/17 07:12 White Blood Count 4.5 TH/MM3 5.0 TH/MM3 Red Blood Count 3.63 MIL/MM3 3.51 MIL/MM3 Hemoglobin 11.0 GM/DL 10.7 GM/DL Hematocrit 32.1 % 30.5 % Mean Corpuscular Volume 88.4 FL 86.8 FL Mean Corpuscular Hemoglobin 30.4 PG 30.4 PG Mean Corpuscular Hemoglobin Concent 34.3 % 35.0 % Red Cell Distribution Width 13.4 % 12.9 % Platelet Count 175 TH/MM3 186 TH/MM3 Mean Platelet Volume 8.6 FL 9.3 FL Neutrophils (%) (Auto) 71.6 % 67.6 % Lymphocytes (%) (Auto) 15.7 % 18.0 % Monocytes (%) (Auto) 11.8 % 12.7 % Eosinophils (%) (Auto) 0.3 % 1.2 % Basophils (%) (Auto) 0.6 % 0.5 % Neutrophils # (Auto) 3.2 TH/MM3 3.4 TH/MM3 Lymphocytes # (Auto) 0.7 TH/MM3 0.9 TH/MM3 Monocytes # (Auto) 0.5 TH/MM3 0.6 TH/MM3 Eosinophils # (Auto) 0.0 TH/MM3 0.1 TH/MM3 Basophils # (Auto) 0.0 TH/MM3 0.0 TH/MM3 CBC Comment DIFF FINAL DIFF FINAL Differential Comment Laboratory Tests Test 04/07/17 15:43 04/08/17 06:00 04/09/17 07:12 Blood Urea Nitrogen 27 MG/DL 33 MG/DL 31 MG/DL Creatinine 1.43 MG/DL 1.41 MG/DL 1.12 MG/DL Random Glucose 180 MG/DL 181 MG/DL 124 MG/DL Calcium Level 7.6 MG/DL 8.1 MG/DL 8.1 MG/DL Sodium Level 142 MEQ/L 143 MEQ/L 140 MEQ/L Potassium Level 3.2 MEQ/L 3.7 MEQ/L 3.4 MEQ/L Chloride Level 105 MEQ/L 109 MEQ/L 106 MEQ/L Carbon Dioxide Level 28.2 MEQ/L 27.7 MEQ/L 25.6 MEQ/L Anion Gap 9 MEQ/L 6 MEQ/L 8 MEQ/L Estimat Glomerular Filtration Rate 48 ML/MIN 48 ML/MIN 63 ML/MIN Imaging Last Impressions Renal Ultrasound 04/07/17 0000 Signed Impressions: Service Date/Time: March 13:46 - CONCLUSION: 1. Enlarged prostate with diffusely thickened bladder wall. 2. Echogenic kidneys characteristic of medical renal disease. Mild right hydronephrosis. Evaristo Velazco MD Chest X-Ray 04/06/17 1132 Signed Impressions: Service Date/Time: Thursday, April 06, 2017 11:57 - CONCLUSION: Normal examination. Nam Ibanez MD Head CT 04/06/17 0000 Signed Impressions: Service Date/Time: Thursday, April 06, 2017 12:31 - CONCLUSION: No acute disease. Nam Ibanez MD Physical Exam CONSTITUTIONAL/GENERAL: This is an adequately nourished patient, in no apparent distress. TUBES/LINES/DRAINS: SKIN: No jaundice, rashes, or lesions. Skin temperature appropriate. Not diaphoretic. CARDIOVASCULAR: Regular rate and rhythm without murmurs, gallops, or rubs. No JVD. Peripheral pulses symmetric. RESPIRATORY/CHEST: Symmetric, unlabored respirations. Clear to auscultation. Breath sounds equal bilaterally. No wheezes, rales, or rhonchi. GASTROINTESTINAL: Abdomen soft, non-tender, nondistended. No hepato-splenomegaly , or palpable masses. No guarding. Bowel sounds present. GENITOURINARY: Without palpable bladder distension. MUSCULOSKELETAL: Extremities without clubbing, cyanosis, or edema. No joint tenderness or effusion noted. No calf tenderness. No mottling or clubbing. NEUROLOGICAL: Awake and alert. Makes eye contact,purposefull Not cooperative. Very confused, speech incoherent . Moves all extremities. PSYCHIATRIC: confused and non cooperative Assessment & Plan Remarks UTI in the settings of BPH, ESBL + Prostatic enlargement with markedly bladder wall increased thickness ARF 2/2 urinary retention Pt is demented cont Ertapenem x 2 weeks monitor creatinine monitor bladder residuals fu with urology eval for bladder wall thickening Angelina Ramirez MD Apr 09, 2017 12:41
--- NOTE | 2017-04-09 12:42 | HHI.FF ---
Infusion Therapy Location of Infusion Therapy: [facility] Infusion Therapy Order Patient Information Patient Weight 78 kg Diagnosis: Coded Allergies: No Known Allergies (Verified Allergy, Unknown, 04/06/17) Administer Medication Ertapenem Start Treatment: Apr 10, 2017 Stop Treatment: Apr 22, 2017 Additional Information Venous access: PICC Line Additional Instructions [x] Peripheral flush and dressing changes per protocol [x] Implanted port and central inspector line: * Implanted port: 10 ml Normal Saline followed by 5 ml Heparin 100 units/ml Heparin flush after each use and monthly to maintain. [] May leave port accessed during therapy. [] May leave peripheral site accessed for duration of therapy. [x] If patient has SOB or respiratory distress, check oxygen saturation. If less than 90% or clinical signs of respiratory distress, administer oxygen at 2 L/min. via nasal cannula and notify physician. [x] Anaphylaxis/Reaction orders: * Stop infusion. * Keep IV line open with saline flush. * Notify physician. * Monitor vital signs every 15 minutes until symptoms resolve. * Check Oxygen saturation; Oxygen at 2 L/min. via nasal cannula if less than 90% or clinical signs of respiratory distress. * Administer diphenhydramine (Benadryl) 25 mg IV STAT, (unless patient has received as pre-med). May repeat once, if necessary. * Solu-Cortef 250 mg IVP over 30-60 seconds, use 100 mg vials for each dissolution. * Epinephrine (1mg/1 ml) 0.3 mg subcutaneously or IVP now with any signs of respiratory distress. * Check with physician for new additional pre-med orders if patient is re- challenged or re-treated. [x] May remove PICC line when treatment complete, after confirming with Physician. [x] If the patient is admitted to the hospital, the ED, or transferred via [facility] , complete transfer form including medication reconciliation order sheet. Laboratory Tests Weekly Labs: CBC w/diff, Creatinine Angelina Ramirez MD Apr 09, 2017 12:42
--- NOTE | 2017-04-09 14:22 | EKG ---
Date Performed: 04/09/2017 Time Performed: 09:19:50 PTAGE: 81 years EKG: Sinus rhythm WITH FREQUENT SUPRAVENTRICULAR PREMATURE COMPLEXES, SOME OF WHICH ARE BLOCKED PACs ABNORMAL RHYTHM E CG PREVIOUS TRACING : 04/07/2017 21.11 Compared to the previous tracing, previously in sinus tachy cardia DOCTOR: Moustapha Yancey Interpretating Date/Time 04/09/2017 14:22:35
[2017-04-09] MEDS: ERTAPENEM INJ 1,000 MG in SODIUM CHLORIDE 0.9% INJ 100 ML IV SCH (15:27)
[2017-04-09] MEDS: hydrALAZINE HCL 10 MG TAB PO PRN (15:27)
[2017-04-09] MEDS: METOPROLOL TARTRATE 25 MG TAB PO SCH (21:06)
--- NOTE | 2017-04-09 23:05 | HHI.FPPN ---
Addendum to progress note ADDENDUM Reason for addendum: Additonal documentation Additional information Cross Cover Note Summary and Work Up to Date: Mr Miranda is a 81YO male w/PMHx dementia, HTN, HLD, and DM II who presents from [facility] with a pyelonephritis. He is in hospice because of dementia; however, his hospice does not require a DNR order, which is why he was brought to the ED with a fever of 102 in the detention. He had no leukocytosis. Head CT negative; CXR negative ; but renal US indicated an enlarged prostate, renal disease in kidneys with mild right hydronephrosis. He also had an CARLEE with Cr 1.68 that has since resolved to 1.12. Urine required culture which came back ESBL E coli. ID was consulted and started IV ertapenem. His blood cx have NGTD x3 days. ECG was abnormal with supraventricular premature complexes (blocked PACs). ECHO study shows moderately dilated LV with EF 25-30% and global LV dysfunction, wall thickness at upper limit of normal, severely thickened aortic valve leaflets, mild aortic valve stenosis, mild mitral valve regurg. We have continued his home dose amlodipine, lisinopril, spironolactone and lasix to better control his HTN. We added a PRN dose of clonidine for BP not at goal; however, that was not adequately controlling HTN, so hydralazine 10mg has been added instead to keep BP at goal. Urology was consulted for enlarged prostate and recommend continuing Flomax and will see him as an outpt. We started the pt on Levemir 5units BID and his blood glucose has been relatively well controlled with addition of low SSI. His A1C is 7.1. ID has signed off on pt getting a PICC line so he can discharge to SNF with IV Ertapenem for 2 more weeks; however, we might consider Cardiology consult if there is anything else should be done prior to discharge back to SNF. He has been afebrile since 04/07. O: Vital Signs Date Time Temp Pulse Resp B/P (MAP) Pulse Ox O2 Delivery O2 Flow Rate FiO2 04/09/17 20:49 96 Nasal Cannula 3.00 04/09/17 20:00 97.4 91 20 148/88 (108) Physical Exam General: elderly male, lying down in bed, no distress, alert, awake Skin: Has stage 1 skin breakdown on lower back, no opening of the skin. No rashes or lesions. HEENT: Normocephalic, atraumatic. No conjunctivitis, no nasal discharge, MMM. Neck: No JVD. Nontender. Trachea midline. CV: Irregularly irregular, bradycardic, pulses distally are intact, appears well perfused, normal cap refill Lungs: CTAB. No increased WOB. Abdomen: Soft, nontender, nondistended, normal bowel sounds. Ext: No swelling, no pain with palpation. Moves all spontaneously. Neuro: Awake, alert, disoriented at baseline, history of dementia, does follow simple commands A/P: 81YO male w/PMHx DM, HTN, HLD who presents with fever and ESBL E coli pyelonephritis and an enlarged prostate now on IV Ertapenem. -PICC line -Ertapenem for 2 more weeks; can discharge to SNF with PICC and receive IV abx there -Continue Lisinopril, amlodipine, and spirololactone for HTN; consider hydralazine for PRN if BP not at goal -Consider Cards consult--discuss ECHO with Cardiology to see if there is any additional intervention required/necessary -Continue Seroquel, Sertraline for mood; have been holding ambien and xanax while in hospital but probably ok to go home with (has been pulling the tele off ) -Home dose Metformin was stopped in hospital in favor of Levemir and SSI; with A1C 7.1, may be better to send home back on home dose Metformin -Started ASA chew 81mg in hospital and per Cards recs, may be best option for him for anticoag strategy and CHADS-VASC score of 4 -Follow up with Urology as outpt -PT in rehab/snf Yrn Mckeon MD R1 Apr 09, 2017 23:05
[2017-04-10] VITALS (10 sets, daily range): BP systolic 142–178; BP diastolic 78–87; PULSE 54–98; RESP 17–20; TEMP 96.3–98.7; O2SAT 94–98
[2017-04-10 05:44] LABS: HEMATOCRIT 32.8 % (39.0-51.0); MEAN CELL VOLUME 86.4 FL (80.0-100.0); MEAN CORPUSCULAR HEMOGLOBIN 30.5 PG (27.0-34.0); MEAN CORPUSCULAR HGB CONC 35.3 % (32.0-36.0); PLATELET COUNT 214 TH/MM3 (150-450); RED CELL DISTRIBUTION WIDTH 13.2 % (11.6-17.2); REVIEW FLAG FINAL; WHITE BLOOD COUNT 7.9 TH/MM3 (4.0-11.0)
[2017-04-10 06:11] LABS: BICARBONATE 26.4 MEQ/L (21.0-32.0); POTASSIUM 3.5 MEQ/L (3.5-5.1)
[2017-04-10] MEDS: HEPARIN SODIUM - SQ 10,000 UNITS/ML VIAL SQ SCH ×2 (06:46→17:35)
[2017-04-10] MEDS: INSULIN ASPART SUPPLEMENTAL SCALE SQ SCH ×4 (08:00→20:07)
--- NOTE | 2017-04-10 08:30 | HHI.FPPN ---
Subjective Remarks Patient seen and examined this morning. No acute events overnight per nursing staff. Patient's BP ranging from 95/62 to 199/87 over the last 24 hours with HR ranging from 52-92. Per nursing report patient became combative yesterday resulting in his blood pressure elevation to 199/87. This pain appears consistent with his baseline per nursing report secondary to his dementia. Patient unable to participate in interview, however is only alert and not oriented to place and time secondary to his dementia. He does state that he has no current complaints and denies any headaches, chest pain, shortness breath, abdominal pain, NVD, or calf tenderness. (Jairo Walters MD R2) Objective Vitals Vital Signs Date Time Temp Pulse Resp B/P (MAP) Pulse Ox O2 Delivery O2 Flow Rate FiO2 04/10/17 08:03 96.7 81 18 142/87 (105) 96 04/10/17 06:12 97.3 92 20 153/79 (103) 94 04/09/17 20:49 96 Nasal Cannula 3.00 04/09/17 20:00 97.4 91 20 148/88 (108) 96 04/09/17 20:00 79 04/09/17 16:32 97.5 60 18 199/87 (124) 96 04/09/17 12:51 97.8 98 18 169/87 (114) 98 04/09/17 10:35 97.9 52 16 166/76 (106) 95 04/09/17 09:10 96 Nasal Cannula 3.00 I/O 04/09/17 04/09/17 04/09/17 04/10/17 04/10/17 04/10/17 07:00 15:00 23:00 07:00 15:00 23:00 Intake Total 240 ml 340 ml 120 ml Balance 240 ml 340 ml 120 ml Intake Oral 240 ml 240 ml 120 ml IV Total 100 ml # Voids 1 5 3 # Bowel Movements 1 1 (Jairo Walters MD R2) Result Diagram: 04/10/1742904/10/17429 Objective Remarks General: Elderly gentleman lying in bed in no acute distress. Skin: Has stage 1 skin breakdown on lower back, no opening of the skin. No rashes or lesions. HEENT: Normocephalic, atraumatic.MMM. No JVD or LAD appreciated. CV: Irregularly irregular rhythm with bradycardic rate. No MGR. 2+ pulses in all 4 extremities. Lungs: CTAB with no CRW. No increased work of breathing. Abdomen: Soft, nontender, nondistended with positive bowel sounds. No masses appreciated. Ext: No edema or cyanosis. No calf tenderness. Neuro: Patient awake and alert but disoriented to time and place. (Jairo Walters MD R2) A/P Assessment and Plan 81-year-old male with past medical history of dementia presented with severe sepsis with acute kidney injury 2/2 pyelonephritis vs UTI. Pt with ESBL E. coli pyelonephritis on urine cx with renal US showing mild hydronephrosis. Currently being medically managed for uncontrolled HTN . Discharge Planning Pending stabilization of HTN (Jairo Walters MD R2) Attending Attestation Patient seen and examined. Case reviewed and discussed with the resident team. Agree with plan of care as discussed with me and documented in the resident note. unsure but can ask his what his baseline functioning is as far as mobility. He is bedridden here so far. he may have some tachy nellie syndrome. However, if he is asymptomatic he would not be treated with a pacemaker. He is reported to be on hospice as an outpt and his may not want to be aggressive , he may need his beta moncho if his heart rate is too tachycardic. (Deirdre Sher MD) Problem List: (1) Hypertension ICD Codes: I10 - Essential (primary) hypertension Status: Acute Plan: BP ranging from 95/62 to 199/87 over the last 24 hours wiht HR ranging from 52-92. Stabilization remains difficult as patient is demented and often refuses multiple medications. He also becomes very agitated which and result raises his blood pressure requiring emergency medication treatment. -Continue Lopressor, Lasix, lisinopril, ASA -Restart amlodipine for improved blood pressure control -Hydralazine 10mg PO PRN SBP >160, DBP >90, 1 dose over last 24 hours (2) Pyelonephritis ICD Codes: N12 - Tubulo-interstitial nephritis, not specified as acute or chronic Status: Acute Plan: Urine cx positive ESBL E Coli plus renal US 04/07 showing mild right hydronephrosis with enlarged prostate and bladder thickening -ID consulted, appreciate recommendations -Continue ertapenem -Urology consulted on 04/08: not a candidate for intervention at this time. Continue Flomax 0.4mg BID -CARLEE resolved w/Cr 1.68->1.41>1.11 (3) Severe sepsis with acute organ dysfunction ICD Codes: A41.9 - Sepsis, unspecified organism; R65.20 - Severe sepsis without septic shock Status: Resolved Plan: Resolved Upon admission he met severe sepsis criteria due to tachycardia, temperature up to 101.2, and elevated creatinine (end organ damage) that may or may not be new. Urinary tract infection is likely source. Lactic acid was normal. Chest x- ray was normal. UA has nitrites, large leukocyte esterase, moderate bacteria, and WBC. Has significant clinical improvement this morning. He is much more alert today. No leukocytosis. Had tachycardia on admission, rhythm somewhat abnormal but may be PVC's. He does have a history of atrial fibrillation. - Follow urine and blood cultures --Urine cx positive for ESBL E coli. Started on ertapenem on 04/08 by ID --Blood cx NGTD x3 days (4) Atrial fibrillation ICD Codes: I48.91 - Unspecified atrial fibrillation Status: Chronic Plan: Pt with Hx Afib but pt has bradycardic, irregularly irregular heartbeat on exam today EKG ordered on 04/09 and shows sinus bradycardia (HR 60) with frequent supraventricular complexes -Holding Lopressor this am due to bradycardia -Continue cardiac monitoring For AFIB: CHADS-VASC score 4 for age, HTN, and DM -Aspirin chew 81mg daily--to continue on discharge as pt may not be a good risk for anticoagulation via other means (5) CARLEE (acute kidney injury) ICD Codes: N17.9 - Acute kidney failure, unspecified Status: Resolved Plan: Resolved Elevated creatinine at 1.68 on admit, baseline creatinine 1.22 in October 2016. BUN /Cr ratio is 18. May be mixed etiology with obstruction and prerenal disease secondary to sepsis. -CARLEE resolved -Continue oral fluids -Avoid nephrotoxic agents -Renal US results as above (6) BPH (benign prostatic hyperplasia) ICD Codes: N40.0 - Benign prostatic hyperplasia without lower urinary tract symptoms Plan: Pt with enlarged prostate on renal US, mild hydronephrosis, thickened bladder. Consider urinary obstruction -Continue Flomax 0.4mg (7) Dementia ICD Codes: F03.90 - Unspecified dementia without behavioral disturbance Status: Chronic Plan: History of dementia with behavioral disturbance -Holding sedating medications including Xanax and Ambien -Continue home meds Sertraline -Hold Seroquel today because he was less active and was sleepy this morning -Delirium precautions (8) Diabetes mellitus ICD Codes: E11.9 - Type 2 diabetes mellitus without complications Status: Chronic Plan: Pt with DM. A1C 7.1. Blood glucose 127-132 overnight -Holding metformin 1000 mg by mouth twice a day after meals -Accu-Cheks with low-dose sliding scale insulin -Continue Levemir 5 units BID 04/08 (9) FEN/DVT PPX/GI PPX/Nursing Orders Plan: Fluids: oral fluids only Electrolytes: Will monitor and replace as needed Nutrition: Diabetic diet, mechanical soft with no liquid restrictions DVT Prophylaxis: Bilateral SCDs, Heparin subcutaneous Q8h No PPI indicated PT at rehab per PT note (Jairo Walters MD R2) Jairo Walters MD R2 Apr 10, 2017 08:30 Deirdre Sher MD Apr 10, 2017 17:08
[2017-04-10] MEDS: INSULIN DETEMIR 100 UNITS/ML VIAL SQ SCH ×2 (09:00→22:17)
[2017-04-10] MEDS: FUROSEMIDE 20 MG TAB PO SCH (09:00)
[2017-04-10] MEDS: SPIRONOLACTONE 25 MG TAB PO SCH (09:00)
[2017-04-10] MEDS: LISINOPRIL 10 MG TAB PO SCH (10:06)
[2017-04-10] MEDS: METOPROLOL TARTRATE 25 MG TAB PO SCH ×2 (10:06→21:00)
[2017-04-10] MEDS: amLODIPine BESYLATE 5 MG TAB PO SCH (10:06)
[2017-04-10] MEDS: TAMSULOSIN HCL 0.4 MG CAP PO SCH ×2 (15:03→22:17)
[2017-04-10] MEDS: ASPIRIN 81 MG CHEW TAB CHEW SCH (15:04)
[2017-04-10] MEDS: SERTRALINE HCL 50 MG TAB PO SCH (15:04)
[2017-04-10] MEDS: ERTAPENEM INJ 1,000 MG in SODIUM CHLORIDE 0.9% INJ 100 ML IV SCH (15:08)
[2017-04-11] VITALS (7 sets, daily range): BP systolic 104–176; BP diastolic 63–83; PULSE 50–89; RESP 16–18; TEMP 97.6–98.9; O2SAT 93–98
[2017-04-11] MEDS: HEPARIN SODIUM - SQ 10,000 UNITS/ML VIAL SQ SCH ×2 (06:47→18:05)
[2017-04-11] MEDS: INSULIN ASPART SUPPLEMENTAL SCALE SQ SCH ×4 (08:00→21:38)
[2017-04-11] MEDS: TAMSULOSIN HCL 0.4 MG CAP PO SCH ×2 (09:00→20:19)
[2017-04-11] MEDS: ASPIRIN 81 MG CHEW TAB CHEW SCH (09:00)
[2017-04-11] MEDS: INSULIN DETEMIR 100 UNITS/ML VIAL SQ SCH ×2 (09:00→21:38)
[2017-04-11] MEDS: FUROSEMIDE 20 MG TAB PO SCH (09:00)
[2017-04-11] MEDS: SPIRONOLACTONE 25 MG TAB PO SCH (09:00)
[2017-04-11] MEDS: METOPROLOL TARTRATE 25 MG TAB PO SCH ×2 (09:00→20:20)
[2017-04-11] MEDS: SERTRALINE HCL 50 MG TAB PO SCH (09:00)
[2017-04-11] MEDS: LISINOPRIL 10 MG TAB PO SCH (09:00)
--- NOTE | 2017-04-11 14:41 | HHI.FPPN ---
Subjective Remarks Denies complaints at this time. No acute events overnight per nursing staff. History limited secondary to mental state. Review of systems Limited secondary to mental state. (Hayes Mai MD, R3) Objective Vitals Vital Signs Date Time Temp Pulse Resp B/P (MAP) Pulse Ox O2 Delivery O2 Flow Rate FiO2 04/11/17 13:08 97.8 58 16 130/65 (86) 98 04/11/17 08:11 97.8 50 18 132/70 (90) 95 04/11/17 04:43 98.9 68 18 163/71 (101) 97 04/11/17 00:17 98.5 80 17 176/83 (114) 93 04/10/17 21:19 95 Nasal Cannula 3.00 04/10/17 20:21 98.7 73 17 170/82 (111) 94 04/10/17 20:00 98 04/10/17 18:00 64 04/10/17 17:03 97.4 54 18 150/78 (102) 98 I/O 04/10/17 04/10/17 04/10/17 04/11/17 04/11/17 04/11/17 07:00 15:00 23:00 07:00 15:00 23:00 Intake Total 120 ml 240 ml 329 ml 120 ml Balance 120 ml 240 ml 329 ml 120 ml Intake Oral 120 ml 240 ml 120 ml 120 ml IV Total 209 ml # Voids 3 4 2 2 # Bowel Movements 1 1 (Hayes Mai MD, R3) Result Diagram: 04/10/17 0430 04/10/17 0430 Objective Remarks General: Elderly gentleman lying in bed in no acute distress. Skin: Has stage 1 skin breakdown on lower back, no opening of the skin. No rashes or lesions. HEENT: Normocephalic, atraumatic.MMM. No JVD or LAD appreciated. CV: Irregularly irregular rhythm with bradycardic rate. 2+ pulses in all 4 extremities. Lungs: CTAB with no CRW. No increased work of breathing. Abdomen: Soft, nontender, nondistended with positive bowel sounds. No masses appreciated. Ext: No edema or cyanosis. No calf tenderness. Neuro: Patient awake and alert but disoriented to time and place. (Hayes Mai MD, R3) A/P Assessment and Plan 81-year-old male with past medical history of dementia presented with severe sepsis with acute kidney injury 2/2 pyelonephritis vs UTI. Pt with ESBL E. coli pyelonephritis on urine cx with renal US showing mild hydronephrosis. Currently being medically managed for uncontrolled HTN . Discharge Planning Possibly today pending PICC line placement and ability to receive IV ertapenem out of the hospital (Hayes Mai MD, R3) Attending Attestation Patient seen and examined. Case reviewed and discussed with the resident team. Agree with plan of care as discussed with me and documented in the resident note. unable to answer questions. has better pulse on lower dose of beta moncho where he stays at a better rate instead of the 40s. asymptomatic. (Deirdre Sher MD) Problem List: (1) Hypertension ICD Codes: I10 - Essential (primary) hypertension Status: Resolved Plan: -Continue Lopressor, Lasix, lisinopril, ASA, amlodipine -Hydralazine 10mg PO PRN SBP >160, DBP >90 (2) Pyelonephritis ICD Codes: N12 - Tubulo-interstitial nephritis, not specified as acute or chronic Status: Acute Plan: Urine cx positive ESBL E Coli plus renal US 04/07 showing mild right hydronephrosis with enlarged prostate and bladder thickening -ID consulted, appreciate recommendations -Continue ertapenem 2 weeks per ID (started 04/08) -Urology consulted on 04/08: not a candidate for intervention at this time. Continue Flomax 0.4mg BID -CARLEE resolved w/Cr 1.68->1.41>1.11 (3) Severe sepsis with acute organ dysfunction ICD Codes: A41.9 - Sepsis, unspecified organism; R65.20 - Severe sepsis without septic shock Status: Resolved Plan: Resolved Upon admission he met severe sepsis criteria due to tachycardia, temperature up to 101.2, and elevated creatinine (end organ damage) that may or may not be new. Urinary tract infection is likely source. Lactic acid was normal. Chest x- ray was normal. UA has nitrites, large leukocyte esterase, moderate bacteria, and WBC. Has significant clinical improvement this morning. He is much more alert today. No leukocytosis. Had tachycardia on admission, rhythm somewhat abnormal but may be PVC's. He does have a history of atrial fibrillation. Follow urine and blood cultures --Urine cx positive for ESBL E coli. Started on ertapenem on 04/08 by ID --Blood cx NGTD (4) Atrial fibrillation ICD Codes: I48.91 - Unspecified atrial fibrillation Status: Chronic Plan: Pt with Hx Afib but pt has bradycardic, irregularly irregular heartbeat on exam today EKG ordered on 04/09 and shows sinus bradycardia (HR 60) with frequent supraventricular complexes -Continue cardiac monitoring For AFIB: CHADS-VASC score 4 for age, HTN, and DM -Aspirin chew 81mg daily--to continue on discharge as pt may not be a good risk for anticoagulation via other means (5) CARLEE (acute kidney injury) ICD Codes: N17.9 - Acute kidney failure, unspecified Status: Resolved Plan: Resolved Elevated creatinine at 1.68 on admit, baseline creatinine 1.22 in October 2016. BUN /Cr ratio is 18. May be mixed etiology with obstruction and prerenal disease secondary to sepsis. -CARLEE resolved -Continue oral fluids -Avoid nephrotoxic agents -Renal US results as above (6) BPH (benign prostatic hyperplasia) ICD Codes: N40.0 - Benign prostatic hyperplasia without lower urinary tract symptoms Plan: Pt with enlarged prostate on renal US, mild hydronephrosis, thickened bladder. Consider urinary obstruction -Continue Flomax 0.4mg (7) Dementia ICD Codes: F03.90 - Unspecified dementia without behavioral disturbance Status: Chronic Plan: History of dementia with behavioral disturbance -Holding sedating medications including Xanax and Ambien -Continue home meds Sertraline -Delirium precautions (8) Diabetes mellitus ICD Codes: E11.9 - Type 2 diabetes mellitus without complications Status: Chronic Plan: Pt with DM. A1C 7.1. -Holding metformin 1000 mg by mouth twice a day after meals -Accu-Cheks with low-dose sliding scale insulin -Continue Levemir 5 units BID 04/08 (9) FEN/DVT PPX/GI PPX/Nursing Orders Plan: Fluids: oral fluids only Electrolytes: Will monitor and replace as needed Nutrition: Diabetic diet, mechanical soft with no liquid restrictions DVT Prophylaxis: Bilateral SCDs, Heparin subcutaneous Q8h No PPI indicated PT at rehab per PT note (Hayes Mai MD, R3) Hayes Mai MD, R3 Apr 11, 2017 14:41 Deirdre Sher MD Apr 12, 2017 14:29
[2017-04-11] MEDS: ERTAPENEM INJ 1,000 MG in SODIUM CHLORIDE 0.9% INJ 100 ML IV SCH (17:00)
[2017-04-12] VITALS (8 sets, daily range): BP systolic 154–177; BP diastolic 87–113; PULSE 47–114; RESP 17–20; TEMP 96.8–98.7; O2SAT 92–97
[2017-04-12] MEDS: HEPARIN SODIUM - SQ 10,000 UNITS/ML VIAL SQ SCH ×2 (05:23→19:38)
[2017-04-12 07:49] LABS: ALT (GPT) 33 U/L (12-78); ANION GAP 5 MEQ/L (5-15); AST (GOT) 24 U/L (15-37); BICARBONATE 29.6 MEQ/L (21.0-32.0); CHLORIDE 105 MEQ/L (98-107); GLOMERULAR FILTRATION RATE 52 ML/MIN (>89); SODIUM (NA) 140 MEQ/L (136-145)
[2017-04-12 07:52] LABS: ALKALINE PHOSPHATASE 65 U/L (45-117); BLOOD UREA NITROGEN 27 MG/DL (7-18); TOTAL BILIRUBIN ADULT 0.4 MG/DL (0.2-1.0)
[2017-04-12] MEDS: ASPIRIN 81 MG CHEW TAB CHEW SCH (10:03)
[2017-04-12] MEDS: SPIRONOLACTONE 25 MG TAB PO SCH (10:03)
[2017-04-12] MEDS: amLODIPine BESYLATE 5 MG TAB PO SCH (10:04)
[2017-04-12] MEDS: METOPROLOL TARTRATE 25 MG TAB PO SCH ×2 (10:04→21:02)
[2017-04-12] MEDS: FUROSEMIDE 20 MG TAB PO SCH (10:04)
[2017-04-12] MEDS: LISINOPRIL 10 MG TAB PO SCH (10:04)
[2017-04-12] MEDS: TAMSULOSIN HCL 0.4 MG CAP PO SCH ×2 (10:04→21:02)
[2017-04-12] MEDS: SERTRALINE HCL 50 MG TAB PO SCH (10:04)
[2017-04-12] MEDS: INSULIN DETEMIR 100 UNITS/ML VIAL SQ SCH ×2 (10:09→21:03)
[2017-04-12] MEDS: INSULIN ASPART SUPPLEMENTAL SCALE SQ SCH ×4 (10:11→21:43)
--- NOTE | 2017-04-12 12:40 | HHI.FPPN ---
Subjective Remarks Patient seen and examined this morning by medical team. No acute events overnight per nursing staff with continued intermittent hypertension. Patient awaiting placement impeded by need for isolation room due to ESBL UTI. Urine culture ordered, but unable to be obtained due to patient compliance secondary to his dementia and combativeness. Patient currently does not have any complaints and denies any fevers, chills, chest pain, NVD, abdominal pain, or calf tenderness. However interview and complete review of systems Limited due to patient's state of dementia. (Jairo Walters MD R2) Objective Vitals Vital Signs Date Time Temp Pulse Resp B/P (MAP) Pulse Ox O2 Delivery O2 Flow Rate FiO2 04/12/17 12:06 97.5 47 18 170/87 (114) 93 04/12/17 08:05 97.7 106 18 154/113 (127) 04/12/17 04:00 98.7 79 20 158/97 (117) 92 04/12/17 00:24 97.9 94 17 156/92 (113) 96 04/11/17 20:17 97.6 89 18 104/63 (77) 94 04/11/17 17:18 98.0 65 16 130/72 (91) 98 04/11/17 13:08 97.8 58 16 130/65 (86) 98 I/O 04/11/17 04/11/17 04/11/17 04/12/17 04/12/17 04/12/17 06:59 14:59 22:59 06:59 14:59 22:59 Intake Total 120 ml 220 ml Balance 120 ml 220 ml Intake Oral 120 ml 120 ml IV Total 100 ml # Voids 2 2 # Bowel Movements 1 1 (Jairo Walters MD R2) Result Diagram: 04/10/17 0430 04/12/17 0655 Objective Remarks General: Elderly gentleman lying in bed in no acute distress. Skin: Has stage 1 skin breakdown on lower back, no opening of the skin. No rashes or lesions. HEENT: Normocephalic, atraumatic.MMM. No JVD or LAD appreciated. CV: Irregularly irregular rhythm with bradycardic rate. 2+ pulses in all 4 extremities. Lungs: CTAB with no CRW. No increased work of breathing. Abdomen: Soft, nontender, nondistended with positive bowel sounds. No masses appreciated. Ext: No edema or cyanosis. No calf tenderness. Neuro: Patient awake and alert but disoriented to time and place. (Jairo Walters MD R2) A/P Assessment and Plan 81-year-old male with past medical history of dementia presented with severe sepsis with acute kidney injury 2/2 pyelonephritis vs UTI. Pt with ESBL E. coli pyelonephritis on urine cx with renal US showing mild hydronephrosis. Currently being medically managed for uncontrolled HTN . Discharge Planning Pending repeat urine culture for placement (Jairo Walters MD R2) Attending Attestation Patient seen and examined. Case reviewed and discussed with the resident team. Agree with plan of care as discussed with me and documented in the resident note. unfortunately, he is so demented and unable to give any history or cooperate with giving a urine sample (Deirdre Sher MD) Problem List: (1) Hypertension ICD Codes: I10 - Essential (primary) hypertension Status: Resolved Plan: -Continue Lopressor, Lasix, lisinopril, ASA, amlodipine -Hydralazine 10mg PO PRN SBP >160, DBP >90 (2) Pyelonephritis ICD Codes: N12 - Tubulo-interstitial nephritis, not specified as acute or chronic Status: Acute Plan: Urine cx positive ESBL E Coli plus renal US 04/07 showing mild right hydronephrosis with enlarged prostate and bladder thickening -Repeat urine culture 04/12: Pending -ID consulted, appreciate recommendations -Continue ertapenem 2 weeks per ID (started 04/08) -Urology consulted on 04/08: not a candidate for intervention at this time. Continue Flomax 0.4mg BID -CARLEE resolved (3) Severe sepsis with acute organ dysfunction ICD Codes: A41.9 - Sepsis, unspecified organism; R65.20 - Severe sepsis without septic shock Status: Resolved Plan: Resolved Upon admission he met severe sepsis criteria due to tachycardia, temperature up to 101.2, and elevated creatinine (end organ damage) that may or may not be new. Urinary tract infection is likely source. Lactic acid was normal. Chest x- ray was normal. UA has nitrites, large leukocyte esterase, moderate bacteria, and WBC. Has significant clinical improvement this morning. He is much more alert today. No leukocytosis. Had tachycardia on admission, rhythm somewhat abnormal but may be PVC's. He does have a history of atrial fibrillation. Follow urine and blood cultures --Urine cx positive for ESBL E coli. Started on ertapenem on 04/08 by ID --Blood cx NGTD --Repeat urine culture: Pending 04/12 (4) Atrial fibrillation ICD Codes: I48.91 - Unspecified atrial fibrillation Status: Chronic Plan: Pt with Hx Afib but pt has bradycardic, irregularly irregular heartbeat on exam today EKG ordered on 04/09 and shows sinus bradycardia (HR 60) with frequent supraventricular complexes -Continue cardiac monitoring For AFIB: CHADS-VASC score 4 for age, HTN, and DM -Aspirin chew 81mg daily--to continue on discharge as pt may not be a good risk for anticoagulation via other means (5) CARLEE (acute kidney injury) ICD Codes: N17.9 - Acute kidney failure, unspecified Status: Resolved Plan: Resolved Elevated creatinine at 1.68 on admit, baseline creatinine 1.22 in October 2016. BUN /Cr ratio is 18. May be mixed etiology with obstruction and prerenal disease secondary to sepsis. -CARLEE resolved -Continue oral fluids -Avoid nephrotoxic agents -Renal US results as above (6) BPH (benign prostatic hyperplasia) ICD Codes: N40.0 - Benign prostatic hyperplasia without lower urinary tract symptoms Plan: Pt with enlarged prostate on renal US, mild hydronephrosis, thickened bladder. Consider urinary obstruction -Continue Flomax 0.4mg (7) Dementia ICD Codes: F03.90 - Unspecified dementia without behavioral disturbance Status: Chronic Plan: History of dementia with behavioral disturbance -Holding sedating medications including Xanax and Ambien -Continue home meds Sertraline -Delirium precautions (8) Diabetes mellitus ICD Codes: E11.9 - Type 2 diabetes mellitus without complications Status: Chronic Plan: Pt with DM. A1C 7.1. -Holding metformin 1000 mg by mouth twice a day after meals -Accu-Cheks with low-dose sliding scale insulin -Continue Levemir 5 units BID 04/08 (9) FEN/DVT PPX/GI PPX/Nursing Orders Plan: Fluids: oral fluids only Electrolytes: Will monitor and replace as needed Nutrition: Diabetic diet, mechanical soft with no liquid restrictions DVT Prophylaxis: Bilateral SCDs, Heparin subcutaneous Q8h No PPI indicated PT at rehab per PT note (Jairo Walters MD R2) Jairo Walters MD R2 Apr 12, 2017 12:40 Deirdre Sher MD Apr 14, 2017 13:07
--- NOTE | 2017-04-12 12:51 | HHI.PR ---
Addendum to Inpatient Note Addendum Reason: Additional Documentation Additional Information S: Medical team notified of possible fall but patient at approximately 1230. Per nursing staff, patient was found on his knees at this time his bed with the bed alarm sounding. According to report, patient did not hit his head during this fall and was down only approximately a couple of minutes. The patient's fall from bed was approximately 2 feet. No bleeding or signs of other trauma was appreciated on initial evaluation by nursing staff. On arrival time patient sitting in bed watching TV without current complaints. He denies any pain or trauma to his legs. When asked about his recent fall, he states that he did not fall and does not remember being found down by nursing staff. O: GENERAL: Well-nourished, well-developed patient lying in bed in no acute distress. SKIN: Warm and dry. No rash. CARDIOVASCULAR: Warm and well perfused. RESPIRATORY: Normal respiratory effort. GASTROINTESTINAL: Abdomen nondistended. MUSCULOSKELETAL: No signs of trauma on all 4 extremities. No bruising or edema. 2+ pulses in all 4 extremities. A/P: 81-year-old male with past medical history of dementia presented with severe sepsis with acute kidney injury 2/2 pyelonephritis vs UTI. Pt with ESBL E. coli pyelonephritis on urine cx with renal US showing mild hydronephrosis. Currently being medically managed for uncontrolled HTN . 1. Unwitnessed fall -Patient currently with no complaints and denies any trauma/pain -Continue to monitor Jairo Walters MD R2 Apr 12, 2017 12:51
[2017-04-12 14:24] LABS: AUTOMATED NEUTROPHIL # 6.8 TH/MM3 (1.8-7.7); BASOPHIL % 0.4 % (0.0-2.0); EOSINOPHIL # 0.1 TH/MM3 (0-0.4); EOSINOPHIL % 0.8 % (0.0-4.0); HEMATOCRIT 36.6 % (39.0-51.0); HEMO FLAGS DIFF FINAL; LYMPHOCYTE # 1.3 TH/MM3 (1.0-4.8); MEAN CORPUSCULAR HEMOGLOBIN 30.9 PG (27.0-34.0); MEAN CORPUSCULAR HGB CONC 35.9 % (32.0-36.0); MONO % 6.1 % (0.0-8.0); NEUT % 77.7 % (16.0-70.0); PLATELET COUNT 354 TH/MM3 (150-450); RED BLOOD COUNT 4.25 MIL/MM3 (4.50-5.90); RED CELL DISTRIBUTION WIDTH 13.1 % (11.6-17.2); WHITE BLOOD COUNT 8.8 TH/MM3 (4.0-11.0)
[2017-04-12] MEDS: ERTAPENEM INJ 1,000 MG in SODIUM CHLORIDE 0.9% INJ 100 ML IV SCH (19:37)
[2017-04-12] MEDS: hydrALAZINE HCL 10 MG TAB PO PRN (21:02)
[2017-04-13] VITALS (7 sets, daily range): BP systolic 133–140; BP diastolic 71–99; PULSE 53–101; RESP 18; TEMP 97.2–98.6; O2SAT 94–99
[2017-04-13] MEDS: HEPARIN SODIUM - SQ 10,000 UNITS/ML VIAL SQ SCH ×2 (05:07→16:41)
[2017-04-13 06:12] LABS: POTASSIUM 3.9 MEQ/L (3.5-5.1)
[2017-04-13] MEDS: INSULIN ASPART SUPPLEMENTAL SCALE SQ SCH ×3 (08:15→16:41)
[2017-04-13] MEDS: INSULIN DETEMIR 100 UNITS/ML VIAL SQ SCH (09:00)
[2017-04-13] MEDS: SERTRALINE HCL 50 MG TAB PO SCH (09:31)
[2017-04-13] MEDS: METOPROLOL TARTRATE 25 MG TAB PO SCH (09:31)
[2017-04-13] MEDS: TAMSULOSIN HCL 0.4 MG CAP PO SCH (09:31)
[2017-04-13] MEDS: amLODIPine BESYLATE 5 MG TAB PO SCH (09:31)
[2017-04-13] MEDS: LISINOPRIL 10 MG TAB PO SCH (09:32)
[2017-04-13] MEDS: ASPIRIN 81 MG CHEW TAB CHEW SCH (09:32)
[2017-04-13] MEDS: FUROSEMIDE 20 MG TAB PO SCH (09:32)
[2017-04-13] MEDS: SPIRONOLACTONE 25 MG TAB PO SCH (09:32)
--- NOTE | 2017-04-13 11:24 | HHI.FPPN ---
Subjective Remarks Patient seen and examined this morning. No acute events overnight per nursing staff. Patient continues to have intermittent hypertension with blood pressure up to 177/98 over the last 24 hours. He denies any visual changes, chest pain, headaches, or acute shortness of breath. Otherwise patient has no complaints and denies any new fevers, chills, abdominal pain, NVD, dysuria, or calf tenderness. Complete interview and review of systems Limited by patient's baseline dementia. (Jairo Walters MD R2) Objective Vitals Vital Signs Date Time Temp Pulse Resp B/P (MAP) Pulse Ox O2 Delivery O2 Flow Rate FiO2 04/13/17 09:47 81 04/13/17 08:00 98.6 56 18 140/82 (101) 99 04/13/17 04:00 98.3 101 18 135/99 (111) 94 04/13/17 00:00 97.2 91 18 135/93 (107) 96 04/12/17 20:00 96.8 75 18 177/98 (124) 97 04/12/17 16:19 97.6 114 18 163/95 (117) 95 04/12/17 16:00 89 04/12/17 12:06 97.5 47 18 170/87 (114) 93 04/12/17 12:00 96 I/O 04/12/17 04/12/17 04/12/17 04/13/17 04/13/17 04/13/17 07:00 15:00 23:00 07:00 15:00 23:00 Intake Total 560 ml 100 ml Balance 560 ml 100 ml Intake Oral 560 ml IV Total 100 ml Bladder Scan Volume Amount 125 ml # Voids 3 2 1 # Bowel Movements 1 1 0 1 (Jairo Walters MD R2) Result Diagram: 04/12/17 1402 04/13/17 0530 Objective Remarks General: Elderly gentleman lying in bed in no acute distress. Skin: Has stage 1 skin breakdown on lower back, no opening of the skin. No rashes or lesions. HEENT: Normocephalic, atraumatic.MMM. No JVD or LAD appreciated. CV: Irregularly irregular rhythm with bradycardic rate. 2+ pulses in all 4 extremities. Lungs: CTAB with no CRW. No increased work of breathing. Abdomen: Soft, nontender, nondistended with positive bowel sounds. No masses appreciated. Ext: No edema or cyanosis. No calf tenderness. Neuro: Patient awake and alert but disoriented to time and place. (Jairo Walters MD R2) A/P Assessment and Plan 81-year-old male with past medical history of dementia presented with severe sepsis with acute kidney injury 2/2 pyelonephritis vs UTI. Pt with ESBL E. coli pyelonephritis on urine cx with renal US showing mild hydronephrosis. Currently being medically managed for uncontrolled HTN . Discharge Planning Pending repeat urine culture for placement (Jairo Walters MD R2) Attending Attestation Patient seen and examined. Case reviewed and discussed with the resident team. Agree with plan of care as discussed with me and documented in the resident note. hopefully, he will be able to go to his SNF soon and resume his [facility] hospice (Deirdre Sher MD) Problem List: (1) Hypertension ICD Codes: I10 - Essential (primary) hypertension Status: Resolved Plan: Patient with baseline hypertension on multiple medications -Continue Lopressor, Lasix, lisinopril, ASA, amlodipine -Home clonidine held -Hydralazine 10mg PO PRN SBP >160, DBP >90 (2) Pyelonephritis ICD Codes: N12 - Tubulo-interstitial nephritis, not specified as acute or chronic Status: Acute Plan: Urine cx positive ESBL E Coli plus renal US 04/07 showing mild right hydronephrosis with enlarged prostate and bladder thickening -Repeat urine culture 04/12: Pending -ID consulted, appreciate recommendations -Continue ertapenem 2 weeks per ID (started 04/08) -Urology consulted on 04/08: not a candidate for intervention at this time. Continue Flomax 0.4mg BID -CARLEE resolved (3) Severe sepsis with acute organ dysfunction ICD Codes: A41.9 - Sepsis, unspecified organism; R65.20 - Severe sepsis without septic shock Status: Resolved Plan: Resolved Upon admission he met severe sepsis criteria due to tachycardia, temperature up to 101.2, and elevated creatinine (end organ damage) that may or may not be new. Urinary tract infection is likely source. Lactic acid was normal. Chest x- ray was normal. UA has nitrites, large leukocyte esterase, moderate bacteria, and WBC. Has significant clinical improvement this morning. He is much more alert today. No leukocytosis. Had tachycardia on admission, rhythm somewhat abnormal but may be PVC's. He does have a history of atrial fibrillation. Follow urine and blood cultures --Urine cx positive for ESBL E coli. Started on ertapenem on 04/08 by ID --Blood cx NGTD --Repeat urine culture: Pending 04/12 (4) Atrial fibrillation ICD Codes: I48.91 - Unspecified atrial fibrillation Status: Chronic Plan: Pt with Hx Afib but pt has bradycardic, irregularly irregular heartbeat on exam today EKG ordered on 04/09 and shows sinus bradycardia (HR 60) with frequent supraventricular complexes -Continue cardiac monitoring For AFIB: CHADS-VASC score 4 for age, HTN, and DM -Aspirin chew 81mg daily -To be continue on discharge as pt may not be a good risk for anticoagulation via other means (5) CARLEE (acute kidney injury) ICD Codes: N17.9 - Acute kidney failure, unspecified Status: Resolved Plan: Resolved Elevated creatinine at 1.68 on admit, baseline creatinine 1.22 in October 2016. BUN /Cr ratio is 18. May be mixed etiology with obstruction and prerenal disease secondary to sepsis. -CARLEE resolved -Continue oral fluids -Avoid nephrotoxic agents -Renal US results as above (6) BPH (benign prostatic hyperplasia) ICD Codes: N40.0 - Benign prostatic hyperplasia without lower urinary tract symptoms Plan: Pt with enlarged prostate on renal US, mild hydronephrosis, thickened bladder. Consider urinary obstruction -Continue Flomax 0.4mg (7) Dementia ICD Codes: F03.90 - Unspecified dementia without behavioral disturbance Status: Chronic Plan: History of dementia with behavioral disturbance -Holding sedating medications including Xanax and Ambien -Continue home meds Sertraline -Delirium precautions (8) Diabetes mellitus ICD Codes: E11.9 - Type 2 diabetes mellitus without complications Status: Chronic Plan: Pt with DM. A1C 7.1. -Holding metformin 1000 mg by mouth twice a day after meals -Accu-Cheks with low-dose sliding scale insulin -Continue Levemir 5 units BID 04/08 (9) FEN/DVT PPX/GI PPX/Nursing Orders Plan: Fluids: oral fluids only Electrolytes: Will monitor and replace as needed Nutrition: Diabetic diet, mechanical soft with no liquid restrictions DVT Prophylaxis: Bilateral SCDs, Heparin subcutaneous Q8h No PPI indicated PT at rehab per PT note (Jairo Walters MD R2) Jairo Walters MD R2 Apr 13, 2017 11:24 Deirdre Sher MD Apr 14, 2017 13:08
[2017-04-13] MEDS ORDERED: INVA1INJ IV (15:50)
[2017-04-13] MEDS ORDERED: ALPR.5 PO (15:52)
--- NOTE | 2017-04-13 15:52 | HHI.DCPOC ---
Discharge Care Plan Diagnosis: (1) Pyelonephritis Goals to Promote Your Health * To prevent worsening of your condition and complications * To maintain your health at the optimal level Directions to Meet Your Goals Take your medications as prescribed Follow your dietary instruction Follow activity as directed Keep your appointments as scheduled Take your immunizations and boosters as scheduled If your symptoms worsen call your PCP, if no PCP go to Urgent Care Center or Emergency Room Smoking is Dangerous to Your Health. Avoid second hand smoke Call the 24-hour hour crisis hotline for domestic abuse at Jairo Walters MD R2 Apr 13, 2017 15:52
[2017-04-13] MEDS: ERTAPENEM INJ 1,000 MG in SODIUM CHLORIDE 0.9% INJ 100 ML IV SCH (16:27)
--- NOTE | 2017-04-14 10:17 | HHI.DS ---
Discharge Summary Admission Date Apr 06, 2017 at 14:19 Discharge Date: Apr 13, 2017 Admitting Diagnosis UTI with Sepsis. (1) Hypertension Diagnosis: Principal Plan: Patient with baseline hypertension on multiple medications -Continue Lopressor, Lasix, lisinopril, ASA, amlodipine -Home clonidine held -Hydralazine 10mg PO PRN SBP >160, DBP >90 ICD Codes: I10 - Essential (primary) hypertension Status: Resolved (2) Pyelonephritis Diagnosis: Principal Plan: Urine cx positive ESBL E Coli plus renal US 04/07 showing mild right hydronephrosis with enlarged prostate and bladder thickening -Repeat urine culture 04/12: Pending -ID consulted, appreciate recommendations -Continue ertapenem 2 weeks per ID (started 04/08) -Urology consulted on 04/08: not a candidate for intervention at this time. Continue Flomax 0.4mg BID -CARLEE resolved ICD Codes: N12 - Tubulo-interstitial nephritis, not specified as acute or chronic Status: Acute (3) Severe sepsis with acute organ dysfunction Diagnosis: Principal Plan: Resolved Upon admission he met severe sepsis criteria due to tachycardia, temperature up to 101.2, and elevated creatinine (end organ damage) that may or may not be new. Urinary tract infection is likely source. Lactic acid was normal. Chest x- ray was normal. UA has nitrites, large leukocyte esterase, moderate bacteria, and WBC. Has significant clinical improvement this morning. He is much more alert today. No leukocytosis. Had tachycardia on admission, rhythm somewhat abnormal but may be PVC's. He does have a history of atrial fibrillation. Follow urine and blood cultures --Urine cx positive for ESBL E coli. Started on ertapenem on 04/08 by ID --Blood cx NGTD --Repeat urine culture: Pending 04/12 ICD Codes: A41.9 - Sepsis, unspecified organism; R65.20 - Severe sepsis without septic shock Status: Resolved (4) Atrial fibrillation Diagnosis: Secondary Plan: Pt with Hx Afib but pt has bradycardic, irregularly irregular heartbeat on exam today EKG ordered on 04/09 and shows sinus bradycardia (HR 60) with frequent supraventricular complexes -Continue cardiac monitoring For AFIB: CHADS-VASC score 4 for age, HTN, and DM -Aspirin chew 81mg daily -To be continue on discharge as pt may not be a good risk for anticoagulation via other means ICD Codes: I48.91 - Unspecified atrial fibrillation Status: Chronic (5) CARLEE (acute kidney injury) Diagnosis: Principal Plan: Resolved Elevated creatinine at 1.68 on admit, baseline creatinine 1.22 in October 2016. BUN /Cr ratio is 18. May be mixed etiology with obstruction and prerenal disease secondary to sepsis. -CARLEE resolved -Continue oral fluids -Avoid nephrotoxic agents -Renal US results as above ICD Codes: N17.9 - Acute kidney failure, unspecified Status: Resolved (6) BPH (benign prostatic hyperplasia) Diagnosis: Secondary Plan: Pt with enlarged prostate on renal US, mild hydronephrosis, thickened bladder. Consider urinary obstruction -Continue Flomax 0.4mg ICD Codes: N40.0 - Benign prostatic hyperplasia without lower urinary tract symptoms (7) Dementia Diagnosis: Secondary Plan: History of dementia with behavioral disturbance -Holding sedating medications including Xanax and Ambien -Continue home meds Sertraline -Delirium precautions ICD Codes: F03.90 - Unspecified dementia without behavioral disturbance Status: Chronic (8) Diabetes mellitus Diagnosis: Secondary Plan: Pt with DM. A1C 7.1. -Holding metformin 1000 mg by mouth twice a day after meals -Accu-Cheks with low-dose sliding scale insulin -Continue Levemir 5 units BID 04/08 ICD Codes: E11.9 - Type 2 diabetes mellitus without complications Status: Chronic (9) FEN/DVT PPX/GI PPX/Nursing Orders Diagnosis: Secondary Plan: Fluids: oral fluids only Electrolytes: Will monitor and replace as needed Nutrition: Diabetic diet, mechanical soft with no liquid restrictions DVT Prophylaxis: Bilateral SCDs, Heparin subcutaneous Q8h No PPI indicated PT at rehab per PT note Brief History Patient is a 81-year-old male with a PMH of dementia, HTN, DM, and HLD that presents to the [facility] ED from the [facility] with chief complaints of fever and lethargy of one-day duration. The patient's at bedside states that she she received a call from the longterm and the previous night informing her that her had a fever and they were going to check an x-ray. The next day she called and was told that the x-ray was negative. Later that morning, they called to inform her that he was being rushed to the hospital because he was very lethargic and was not responding. The patient's states that she when she saw him in the ED, he initially responded to her and then became agitated. One of the nurses at [facility] confirmed that the patient had a fever of 102F the previous night and was very lethargic. He is confused at baseline but he could answer simple questions such as "what is your name?" But was not answering any questions or responding this morning. CBC/BMP: 04/12/17 1402 04/13/17 0530 Significant Findings Laboratory Tests Test 04/12/17 06:55 04/12/17 14:02 04/13/17 05:30 Blood Urea Nitrogen 27 MG/DL (7-18) 29 MG/DL (7-18) Creatinine 1.32 MG/DL (0.60-1.30) Random Glucose 150 MG/DL (74-106) 116 MG/DL (74-106) Albumin 3.0 GM/DL (3.4-5.0) Calcium Level 8.4 MG/DL (8.5-10.1) Estimat Glomerular Filtration Rate 52 ML/MIN (>89) 57 ML/MIN (>89) Red Blood Count 4.25 MIL/MM3 (4.50-5.90) Hematocrit 36.6 % (39.0-51.0) Neutrophils (%) (Auto) 77.7 % (16.0-70.0) Chloride Level 108 MEQ/L (98-107) PE at Discharge General: Elderly gentleman lying in bed in no acute distress. Skin: Has stage 1 skin breakdown on lower back, no opening of the skin. No rashes or lesions. HEENT: Normocephalic, atraumatic.MMM. No JVD or LAD appreciated. CV: Irregularly irregular rhythm with bradycardic rate. 2+ pulses in all 4 extremities. Lungs: CTAB with no CRW. No increased work of breathing. Abdomen: Soft, nontender, nondistended with positive bowel sounds. No masses appreciated. Ext: No edema or cyanosis. No calf tenderness. Neuro: Patient awake and alert but disoriented to time and place. Hospital Course Mr Miranda is a 81YO male w/PMHx dementia, HTN, HLD, and DM II who presents from [facility] with a pyelonephritis. He is in hospice secondary to dementia; however he does not have a DNR. He had no leukocytosis. Head CT negative; CXR negative; but renal US indicated an enlarged prostate, renal disease in kidneys with mild right hydronephrosis. He also had an CARLEE with Cr 1.68 that has since resolved. Urine required culture which came back ESBL E coli. ID was consulted and started IV ertapenem. His blood cx negative. ECG was abnormal with supraventricular premature complexes (blocked PACs). ECHO study shows moderately dilated LV with EF 25-30% and global LV dysfunction, wall thickness at upper limit of normal, severely thickened aortic valve leaflets, mild aortic valve stenosis, mild mitral valve regurg. Urology was consulted for enlarged prostate and recommend continuing Flomax and will see him as an outpt. ID ordered midline IV access for Ertapenem for a total of 2 weeks with completion on 04/22/17 which was obtained without complication. Patient's hospitalization was prolonged due to placement issues as initially was placed on isolation. SNF accepted patient back after 04/12/17 urine culture was negative. Patient to follow-up with PCP in 3-5 days with urology follow-up in 2 weeks. Patient discharged back to [place] on 04/14/17 with all of his home medications continued. Physical therapy recommended for PT to be continued at SNF. At the time of discharge, patient had no complaints and was afebrile for greater than 24 hours. Pt Condition on Discharge: Stable Discharge Disposition: Discharge to SNF Discharge Instructions DIET: Follow Instructions for: Diabetic Diet Speech Therapy-Diet Recommends: Mechanical Soft Activities you can perform: Regular-No Restrictions Follow up Referrals: PCP Follow-up - 3-5 Days Urology - 2 Weeks New Orders: CBC WITH DIFF - 1 Week COMP MET PROF (CMP) - 1 Week New Medications: Ertapenem Inj (Invanz Inj) 1 Gm Addvial 1 GM IV Q24H for Infection, #9 INJECTION 0 Refills ADMINISTER IN 100ML NS Continued Medications: Alprazolam (Xanax) 0.5 Mg Tab 0.5 MG PO Q6H PRN for ANXIETY, #30 TAB 0 Refills (This prescription has been renewed) Amlodipine (Amlodipine) 5 Mg Tab 5 MG PO DAILY for Blood Pressure Management, #30 TAB 0 Refills Clonidine (Clonidine) 0.1 Mg Tab 0.1 MG PO BID for Blood Pressure Management, #60 TAB 0 Refills Furosemide (Lasix) 20 Mg Tab 20 MG PO DAILY, #30 TAB 0 Refills Lisinopril (Lisinopril) 10 Mg Tab 10 MG PO DAILY, #30 TAB 0 Refills Metformin (Metformin) 1,000 Mg Tab 1000 MG PO BIDPC for Blood Sugar Management, #60 TAB 0 Refills With meals Quetiapine (Seroquel) 25 Mg Tab 25 MG PO DAILY, #30 TAB 0 Refills Sertraline (Zoloft) 50 Mg Tab 50 MG PO DAILY, #30 TAB 0 Refills Spironolactone (Aldactone) 25 Mg Tab 25 MG PO DAILY, #30 TAB 0 Refills Tamsulosin (Tamsulosin) 0.4 Mg Cap 0.4 MG PO HS for Manage Prostate Problems, #30 CAP 0 Refills Zolpidem (Ambien) 10 Mg Tab 10 MG PO HS PRN for INSOMNIA, TAB 0 Refills Jairo Walters MD R2 Apr 14, 2017 10:16
[2017-04-14 20:04] VITALS: BP 110/55; PULSE 67; RESP 18; TEMP 98.4; O2SAT 96
== END 2017-04-13 19:01 | DRG 872 ==
LOC: NEPE 11:31 → NEDA 14:19 → N05B 16:29
PROVIDERS: ADMIT Family Medicine; ATTEND Family Medicine
DX: A41.9 Sepsis, unspecified organism (principal); N17.9 Acute kidney failure, unspecified; F03.90 Unspecified dementia, unspecified severity, without behavioral disturbance, psychotic disturbance, mood disturbance, and anxiety; N13.6 Pyonephrosis; I50.9 Heart failure, unspecified; I11.0 Hypertensive heart disease with heart failure; I48.91 Unspecified atrial fibrillation; R00.1 Bradycardia, unspecified; E11.9 Type 2 diabetes mellitus without complications; B96.20 Unspecified Escherichia coli [E. coli] as the cause of diseases classified elsewhere; R65.20 Severe sepsis without septic shock; Z66 Do not resuscitate; R15.9 Full incontinence of feces; E78.5 Hyperlipidemia, unspecified; R32 Unspecified urinary incontinence; Z79.84 Long term (current) use of oral hypoglycemic drugs; R00.0 Tachycardia, unspecified; N40.0 Benign prostatic hyperplasia without lower urinary tract symptoms; M48.00 Spinal stenosis, site unspecified; Z16.12 Extended spectrum beta lactamase (ESBL) resistance; I08.0 Rheumatic disorders of both mitral and aortic valves; W06.XXXA Fall from bed, initial encounter; Y93.9 Activity, unspecified; Y92.230 Patient room in hospital as the place of occurrence of the external cause
CPT/HCPCS: 36569; 70450; 71010; 76775; 76937; 80048; 80053; 81001; 82550; 82948; 83036; 83605; 83690; 83735; 84100; 84443; 84484; 85025; 85027; 85610; 85730; 87040; 87077; 87086; 87186; 93005; 93306; 96361; 96365; J0696; J1335; J1644; J1815; J7030

== ENCOUNTER 2017-05-01 18:50 | Inpatient (IN) | payer MEDICARE, OTHER ==
[~2017-05-01] VITALS: Ht 177.8 cm; Wt 67.7 kg
[~2017-05-01 18:50] MED LIST changes: +ALPR.5 PO; +AMBI10TA PO; +FURO1TAB62 PO; -GLIP5TAB8 PO; +INVA1INJ IV; +SERO25TA PO; +SPIR25 PO
[2017-05-01 19:10] VITALS: BP 182/109; PULSE 118; RESP 20; TEMP 100.6; O2SAT 97
--- NOTE | 2017-05-01 19:35 | PD ---
HPI Chief Complaint: Complaint Time Seen by Provider: 19:11 Travel History International Travel<30 days: No Contact w/Intl Traveler<30days: No Traveled to known affect area: No History of Present Illness HPI Patient is a 81-year-old male presenting to the emergency Department from a long term facility due to urinary retention. Patient is a poor historian , he is nonverbal at this time. EMS told RN that they have attempted to place a urinary catheter several times and were unsuccessful so they sent him to the emergency department. PFSH Past Medical History Arthritis: No Asthma: No Autoimmune Disease: No Anxiety: Yes Depression: Yes Cancer: No Cardiovascular Problems: Yes High Cholesterol: Yes Chemotherapy: No Chest Pain: No Congestive Heart Failure: No COPD: No Cerebrovascular Accident: No Dementia: Yes Diabetes: Yes Patient Takes Glucophage: Yes (METFORMIN) Diminished Hearing: Yes GERD: No Genitourinary: No Hiatal Hernia: No Hypertension: Yes Immune Disorder: No Insomnia: Yes Kidney Stones: No Medical other: Yes (BPH) Musculoskeletal: No Neurologic: No Psychiatric: No Reproductive: No Respiratory: No Immunizations Current: No Migraines: No Radiation Therapy: No Renal Failure: No Seizures: No Sickle Cell Disease: No Thyroid Disease: No Triglycerides - High: Yes Ulcer: No Tetanus Vaccination: Unknown Past Surgical History Abdominal Surgery: Yes (HERNIA X 2) Other Surgery: Yes Social History Alcohol Use: No Tobacco Use: No Substance Use: No Allergies-Medications (Allergen,Severity, Reaction): Coded Allergies: No Known Allergies (Verified Allergy, Unknown, 05/01/17) Reported Meds & Prescriptions Reported Meds & Active Scripts Active Xanax (Alprazolam) 0.5 Mg Tab 0.5 Mg PO Q6H PRN Reported Ceftriaxone Inj (Ceftriaxone Sodium/Dextrose) 1 Gm/50 Ml Bagp 1 Gm IV Q24H Ambien (Zolpidem Tartrate) 10 Mg Tab 10 Mg PO HS PRN Seroquel (Quetiapine Fumarate) 25 Mg Tab 25 Mg PO DAILY Lasix (Furosemide) 20 Mg Tab 20 Mg PO DAILY Aldactone (Spironolactone) 25 Mg Tab 25 Mg PO DAILY Clonidine (Clonidine HCl) 0.1 Mg Tab 0.1 Mg PO BID Tamsulosin (Tamsulosin HCl) 0.4 Mg Cap 0.4 Mg PO HS Amlodipine (Amlodipine Besylate) 5 Mg Tab 5 Mg PO DAILY Lisinopril 10 Mg Tab 10 Mg PO DAILY Zoloft (Sertraline HCl) 50 Mg Tab 25 Mg PO DAILY Metformin (Metformin HCl) 1,000 Mg Tab 1,000 Mg PO BIDPC With meals Review of Systems ROS Limitations: Poor Historian Except as stated in HPI: all other systems reviewed are Neg General / Constitutional: Positive: Fever Genitourinary: Positive: Decreased Urinary Output Physical Exam Exam Limitations: Poor Historian Narrative GENERAL: Thin, well-developed, alert male. Resting comfortably in no acute distress. SKIN: Warm and dry. HEAD: Atraumatic. Normocephalic. EYES: Pupils equal and round. No scleral icterus. No injection or drainage. ENT: No nasal bleeding or discharge. Mucous membranes pink and moist. NECK: Trachea midline. No JVD. CARDIOVASCULAR: Tachycardic, 2/6 systolic murmur RESPIRATORY: No accessory muscle use. Clear to auscultation. Breath sounds equal and diminished bilaterally. GASTROINTESTINAL: Abdomen soft, non-tender. Hepatic and splenic margins not palpable. Distention noted to the lower abdominal quadrants, more so to the right MUSCULOSKELETAL: Extremities without clubbing, cyanosis, or edema. No obvious deformities. NEUROLOGICAL: Awake and alert. No obvious cranial nerve deficits. Motor grossly within normal limits. Five out of 5 muscle strength in the arms and legs. Nonverbal PSYCHIATRIC: Flat mood and affect. Data Data Last Documented VS Vital Signs Date Time Temp Pulse Resp B/P (MAP) Pulse Ox O2 Delivery O2 Flow Rate FiO2 05/01/17 21:26 93 16 121/74 (90) 98 Nasal Cannula 2.00 05/01/17 19:10 100.6 Orders Orders Sepsis Workup Initiated (05/01/17 ) Electrocardiogram (05/01/17 19:11) Complete Blood Count With Diff (05/01/17 19:11) Comprehensive Metabolic Panel (05/01/17 19:11) Prothrombin Time / Inr (Pt) (05/01/17 19:11) Act Partial Throm Time (Ptt) (05/01/17 19:11) Lactic Acid Sepsis Protocol (05/01/17 19:11) Magnesium (Mg) (05/01/17 19:11) Urinalysis - C+S If Indicated (05/01/17 19:11) Blood Culture (05/01/17 19:11) Chest, Single Ap (05/01/17 19:11) Blood Glucose (05/01/17 19:11) Ecg Monitoring (05/01/17 19:11) Iv Access Insert/Monitor (05/01/17 19:11) Oximetry (05/01/17 19:11) Oxygen Administration (05/01/17 19:11) Urinary Catheter Insert/Apply (05/01/17 19:11) Beta Hydroxybutyrate (Acetone) (05/01/17 19:11) Sodium Chlorid 0.9% 500 Ml Inj (Ns 500 M (05/01/17 19:45) Acetaminophen 1000 Mg/100 Ml (Ofirmev 10 (05/01/17 20:15) Urine Culture (05/01/17 20:00) Piperacil-Tazo 4.5 Gm Premix (Zosyn 4.5 (05/01/17 20:47) Vancomycin Inj (Vancomycin Inj) (05/01/17 20:47) Sodium Chlor 0.9% 1000 Ml Inj (Ns 1000 M (05/01/17 21:00) Insulin Human Regular Inj (Novolin R Inj (05/01/17 21:00) Admit Order (Ed Use Only) (05/01/17 21:30) Labs Laboratory Tests Test 05/01/17 19:25 05/01/17 20:00 White Blood Count 9.2 TH/MM3 Red Blood Count 4.09 MIL/MM3 Hemoglobin 12.4 GM/DL Hematocrit 36.4 % Mean Corpuscular Volume 89.0 FL Mean Corpuscular Hemoglobin 30.3 PG Mean Corpuscular Hemoglobin Concent 34.1 % Red Cell Distribution Width 13.7 % Platelet Count 171 TH/MM3 Mean Platelet Volume 9.3 FL Neutrophils (%) (Auto) 89.2 % Lymphocytes (%) (Auto) 3.7 % Monocytes (%) (Auto) 6.9 % Eosinophils (%) (Auto) 0.0 % Basophils (%) (Auto) 0.2 % Neutrophils # (Auto) 8.2 TH/MM3 Lymphocytes # (Auto) 0.3 TH/MM3 Monocytes # (Auto) 0.6 TH/MM3 Eosinophils # (Auto) 0.0 TH/MM3 Basophils # (Auto) 0.0 TH/MM3 CBC Comment DIFF FINAL Differential Comment Prothrombin Time 11.1 SEC Prothromb Time International Ratio 1.1 RATIO Activated Partial Thromboplast Time 21.7 SEC Blood Urea Nitrogen 33 MG/DL Creatinine 2.30 MG/DL Random Glucose 617 MG/DL Total Protein 7.1 GM/DL Albumin 3.4 GM/DL Calcium Level 8.9 MG/DL Magnesium Level 1.8 MG/DL Alkaline Phosphatase 93 U/L Aspartate Amino Transf (AST/SGOT) 14 U/L Alanine Aminotransferase (ALT/SGPT) 16 U/L Total Bilirubin 0.7 MG/DL Sodium Level 135 MEQ/L Potassium Level 4.6 MEQ/L Chloride Level 99 MEQ/L Carbon Dioxide Level 22.4 MEQ/L Anion Gap 14 MEQ/L Estimat Glomerular Filtration Rate 28 ML/MIN Lactic Acid Level 4.9 mmol/L B-Hydroxybutyrate 0.18 MMOL/L Urine Color YELLOW Urine Turbidity HAZY Urine pH 6.0 Urine Specific [place] 1.014 Urine Protein 30 mg/dL Urine Glucose (UA) 1000 mg/dL Urine Ketones NEG mg/dL Urine Occult Blood MOD Urine Nitrite NEG Urine Bilirubin NEG Urine Urobilinogen LESS THAN 2.0 MG/DL Urine Leukocyte Esterase LARGE Urine RBC 30 /hpf Urine WBC /hpf Urine Yeast (Budding) MANY Microscopic Urinalysis Comment CATH-CULTURE IND MDM Medical Decision Making Medical Screen Exam Complete: Yes Emergency Medical Condition: Yes Medical Record Reviewed: Yes Interpretation(s) Last Impressions Chest X-Ray 05/01/171910 Signed Impressions: Service Date/Time: Monday, May 01, 2017 19:43 - CONCLUSION: Normal examination. Dallas Pearce MD Laboratory Tests Test 05/01/17 19:25 05/01/17 20:00 White Blood Count 9.2 TH/MM3 Red Blood Count 4.09 MIL/MM3 Hemoglobin 12.4 GM/DL Hematocrit 36.4 % Mean Corpuscular Volume 89.0 FL Mean Corpuscular Hemoglobin 30.3 PG Mean Corpuscular Hemoglobin Concent 34.1 % Red Cell Distribution Width 13.7 % Platelet Count 171 TH/MM3 Mean Platelet Volume 9.3 FL Neutrophils (%) (Auto) 89.2 % Lymphocytes (%) (Auto) 3.7 % Monocytes (%) (Auto) 6.9 % Eosinophils (%) (Auto) 0.0 % Basophils (%) (Auto) 0.2 % Neutrophils # (Auto) 8.2 TH/MM3 Lymphocytes # (Auto) 0.3 TH/MM3 Monocytes # (Auto) 0.6 TH/MM3 Eosinophils # (Auto) 0.0 TH/MM3 Basophils # (Auto) 0.0 TH/MM3 CBC Comment DIFF FINAL Differential Comment Prothrombin Time 11.1 SEC Prothromb Time International Ratio 1.1 RATIO Activated Partial Thromboplast Time 21.7 SEC Blood Urea Nitrogen 33 MG/DL Creatinine 2.30 MG/DL Random Glucose 617 MG/DL Total Protein 7.1 GM/DL Albumin 3.4 GM/DL Calcium Level 8.9 MG/DL Magnesium Level 1.8 MG/DL Alkaline Phosphatase 93 U/L Aspartate Amino Transf (AST/SGOT) 14 U/L Alanine Aminotransferase (ALT/SGPT) 16 U/L Total Bilirubin 0.7 MG/DL Sodium Level 135 MEQ/L Potassium Level 4.6 MEQ/L Chloride Level 99 MEQ/L Carbon Dioxide Level 22.4 MEQ/L Anion Gap 14 MEQ/L Estimat Glomerular Filtration Rate 28 ML/MIN Lactic Acid Level 4.9 mmol/L B-Hydroxybutyrate 0.18 MMOL/L Urine Color YELLOW Urine Turbidity HAZY Urine pH 6.0 Urine Specific [place] 1.014 Urine Protein 30 mg/dL Urine Glucose (UA) 1000 mg/dL Urine Ketones NEG mg/dL Urine Occult Blood MOD Urine Nitrite NEG Urine Bilirubin NEG Urine Urobilinogen LESS THAN 2.0 MG/DL Urine Leukocyte Esterase LARGE Urine RBC 30 /hpf Urine WBC /hpf Urine Yeast (Budding) MANY Microscopic Urinalysis Comment CATH-CULTURE IND Vital Signs Date Time Temp Pulse Resp B/P (MAP) Pulse Ox O2 Delivery O2 Flow Rate FiO2 05/01/17 19:10 100.6 118 20 182/109 (133) 97 Differential Diagnosis UTI versus sepsis versus metabolic abnormality versus failure to thrive versus other Narrative Course Patient was sent from the nursing facility due to inability to urinate. On arrival patient had a low-grade fever of 100.6 and was tachycardic. Sepsis workup initiated. Patient's brief was visibly soiled with urine and blood. Blood is likely secondary to attempted catheterization the [facility]. Acetaminophen IV ordered for temp. After urinary catheter was placed, 2 L of urine was drained from patient's bladder, abdomen is soft and nondistended. CBC is unremarkable Glucose 617, 15 units reg insulin ordered Lactic acid 4.9, 1.5 L NS ordered. Cautious IVF due to CHF hx, CXR shows no acute disease. UA consistent with UTI, reflex culture pending. Zosyn and vancomycin ordered. BUN/Cr 33/2.30 this is elevated when compared to prior. Beta hydroxybutyrate is 0.18 [facility] paged for admit. Discussed with Dr. Garcia who accepted admission. Admit orders placed for UTI, sepsis, hyperglycemia. Blood glucose will be reassessed after administration of insulin. Blood glucose 510 45 minutes after insulin was given, IV fluids are infusing, IV infiltrated the patient did not receive IV fluids. We'll recheck blood glucose after the fluids infused. Sepsis Criteria SIRS Criteria (2 or more): Temp > 100.9 or < 96.8, Heart rate over 90 Sepsis Criteria (SIRS+source): Infect source susp/known Severe Sepsis (+one): Organ Dysfunction, Lactate >2, Acute Oliguria/Renal Failure Septic Shock Criteria: Lactic acid >=4 Diagnosis Primary Impression: CARLEE (acute kidney injury) Additional Impressions: Septic shock Urinary retention Admitting Information Admitting Physician Requests: Admit Condition: Stable Celine Finnegan May 01, 2017 19:34
[2017-05-01] MEDS ORDERED: SODIUM CHLORID 0.9% 500 ML INJ 500 ML IV ONE (19:45)
[2017-05-01] MEDS ORDERED: ACETAMINOPHEN 1000 MG/100 ML 65 ML IV ONE (20:15)
[2017-05-01] MEDS ORDERED: CEFT1INJ2 IV (20:19)
[2017-05-01 20:28] LABS: AUTOMATED NEUTROPHIL # 8.2 TH/MM3 (1.8-7.7); BASOPHIL % 0.2 % (0.0-2.0); HEMATOCRIT 36.4 % (39.0-51.0); HEMO FLAGS DIFF FINAL; LYMPH % 3.7 % (9.0-44.0); LYMPHOCYTE # 0.3 TH/MM3 (1.0-4.8); MEAN CORPUSCULAR HEMOGLOBIN 30.3 PG (27.0-34.0); MEAN CORPUSCULAR HGB CONC 34.1 % (32.0-36.0); MONO % 6.9 % (0.0-8.0); NEUT % 89.2 % (16.0-70.0); PLATELET COUNT 171 TH/MM3 (150-450); RED BLOOD COUNT 4.09 MIL/MM3 (4.50-5.90); RED CELL DISTRIBUTION WIDTH 13.7 % (11.6-17.2); WHITE BLOOD COUNT 9.2 TH/MM3 (4.0-11.0)
--- NOTE | 2017-05-01 20:32 | RADRPT ---
EXAM DATE/TIME: 05/01/2017 19:43 [facility] COMPARISON: CHEST SINGLE AP, April 06, 2017, 11:57. INDICATIONS : Fever. MEDICAL HISTORY : Myocardial infarction. Hypercholesterolemia. Hypertension. Diabetes BPH Hyperlipidema SURGICAL HISTORY : Hernai repair ENCOUNTER: Initial ACUITY: 1 day PAIN SCORE: 0/10 LOCATION: Bilateral chest FINDINGS: A single view of the chest demonstrates the lungs to be symmetrically aerated without evidence of mas s, infiltrate or effusion. The cardiomediastinal contours are unremarkable. Osseous structures are intact. CONCLUSION: Normal examination. Dallas Pearce MD on May 01, 2017 at 20:29 Board Certified Radiologist. This report was verified electronically.
[2017-05-01 20:35] LABS: APTT (PATIENT) 21.7 SEC (24.3-30.1); INTERNATIONAL NORMALIZED RATIO 1.1 RATIO; PROTHROMBIN TIME - PATIENT 11.1 SEC (9.8-11.6)
[2017-05-01 20:39] LABS: ANION GAP 14 MEQ/L (5-15)
[2017-05-01 20:44] LABS: ALKALINE PHOSPHATASE 93 U/L (45-117); ALT (GPT) 16 U/L (12-78); AST (GOT) 14 U/L (15-37); BETA-HYDROXYBUTYRATE 0.18 MMOL/L (0.00-0.39); BICARBONATE 22.4 MEQ/L (21.0-32.0); BLOOD UREA NITROGEN 33 MG/DL (7-18); CHLORIDE 99 MEQ/L (98-107); GLOMERULAR FILTRATION RATE 28 ML/MIN (>89); MAGNESIUM 1.8 MG/DL (1.5-2.5); POTASSIUM 4.6 MEQ/L (3.5-5.1); SODIUM (NA) 135 MEQ/L (136-145); TOTAL BILIRUBIN ADULT 0.7 MG/DL (0.2-1.0)
[2017-05-01 20:47] LABS: BLOOD, URINE MOD (NEG); COMMENT (UR) CATH-CULTURE IND; CULTURE IF INDICATED CATH CULTURE IND; GLUCOSE,URINE 1000 mg/dL (NEG); KETONE, URINE NEG (NEG); NITRITE,URINE NEG (NEG); URINE COLOR YELLOW (YELLW/STRAW)
[2017-05-01] MEDS ORDERED: VANCOMYCIN INJ 1,000 MG in SODIUM CHLOR 0.9% 250 ML INJ 250 ML IV STA (20:47)
[2017-05-01] MEDS ORDERED: PIPERACIL-TAZO 4.5 GM PREMIX 100 ML IV STA (20:47)
[2017-05-01] MEDS ORDERED: INSULIN HUMAN REGULAR 1,000 UNITS/10 ML VIAL SQ ONE (21:00)
[2017-05-01] MEDS ORDERED: SODIUM CHLOR 0.9% 1000 ML INJ 1,000 ML IV ONE (21:00)
[2017-05-01 21:26] VITALS: BP 121/74; PULSE 93; RESP 16; O2SAT 98
--- NOTE | 2017-05-01 21:37 | HHI.HP ---
[facility] Service [facility] Primary Care Physician Casper Andrews M.D. Admission Diagnosis SEPSIS/UTI/HYPERGLYCEMIA Diagnoses: (1) Sepsis Diagnosis: Principal (2) UTI (urinary tract infection) Diagnosis: Principal (3) Urinary retention Diagnosis: Principal (4) CARLEE (acute kidney injury) Diagnosis: Principal (5) CHF (congestive heart failure) Diagnosis: Principal (6) HTN (hypertension) Diagnosis: Principal (7) DM (diabetes mellitus) Diagnosis: Principal Travel History International Travel<30 Days: No Contact w/Intl Traveler <30 Da: No Traveled to Known Affected Are: No History of Present Illness This is a 81-year-old male with a PMH of Anxiety, Depression, HTN, Hyperlipidemia, BPH, CHF (Echo 04/08/17 w/ EF 25-30%) and DM who was sent to the ER from SNF secondary to urinary retention. Patient unable to provide any history at this time. Per report, Dubon placement attempted at SNF, however unsuccessful at which time patient was sent to the ER. On arrival, BP 182/109, HR 118, O2 sat 97% on 2L NC, Temp 100.6. CBC unremarkable except for elevated neutrophil count. Creatinine 2.30, previously 1.23 on 04/13/17. BS 617. Lactic Acid 4.9. U/a w/ UTI. S/p Dubon placement in ER w/ 2L urine output. S/ p Zosyn in ER. Review of Systems Except as stated in HPI: all other systems reviewed are Neg ROS: Unable to obtain [place] to dementia. Past Family Social History Past Medical History PMH: Anxiety, Depression, HTN, Hyperlipidemia, BPH, CHF (Echo 04/08/17 w/ EF 25 -30%) and DM Past Surgical History PAST SURGICAL HISTORY: Hernia Repair Allergies: Coded Allergies: No Known Allergies (Verified Allergy, Unknown, 05/01/17) Family History PAST FAMILY HISTORY: Reviewed. No h/o DM or CAD Social History PAST SOCIAL HISTORY: Negative for alcohol, tobacco or drugs. Physical Exam Vital Signs Vital Signs Date Time Temp Pulse Resp B/P (MAP) Pulse Ox O2 Delivery O2 Flow Rate FiO2 05/01/17 21:26 93 16 121/74 (90) 98 Nasal Cannula 2.00 05/01/17 19:10 100.6 118 20 182/109 (133) 97 Physical Exam PE: GENERAL: Elderly white male in no acute distress. Nonverbal, at baseline. HEENT: PERRLA, EOMI. No scleral icterus or conjunctival pallor. No lid lag or facial droop. CARDIOVASCULAR: Regular rate and rhythm. No obvious murmurs to auscultation. No chest tenderness to palpation. RESPIRATORY: No obvious rhonchi or wheezing. Clear to auscultation. Breath sounds equal bilaterally. GASTROINTESTINAL: Abdomen soft, non-tender, nondistended. BS normal. +Dubon MUSCULOSKELETAL: Extremities without clubbing, cyanosis, or edema. No obvious deformities. NEUROLOGICAL: Awake, alert. No focal neurologic deficits. Moving both upper and lower extremities spontaneously. Laboratory Laboratory Tests Test 05/01/17 19:25 05/01/17 20:00 White Blood Count 9.2 Red Blood Count 4.09 Hemoglobin 12.4 Hematocrit 36.4 Mean Corpuscular Volume 89.0 Mean Corpuscular Hemoglobin 30.3 Mean Corpuscular Hemoglobin Concent 34.1 Red Cell Distribution Width 13.7 Platelet Count 171 Mean Platelet Volume 9.3 Neutrophils (%) (Auto) 89.2 Lymphocytes (%) (Auto) 3.7 Monocytes (%) (Auto) 6.9 Eosinophils (%) (Auto) 0.0 Basophils (%) (Auto) 0.2 Neutrophils # (Auto) 8.2 Lymphocytes # (Auto) 0.3 Monocytes # (Auto) 0.6 Eosinophils # (Auto) 0.0 Basophils # (Auto) 0.0 CBC Comment DIFF FINAL Differential Comment Prothrombin Time 11.1 Prothromb Time International Ratio 1.1 Activated Partial Thromboplast Time 21.7 Blood Urea Nitrogen 33 Creatinine 2.30 Random Glucose 617 Total Protein 7.1 Albumin 3.4 Calcium Level 8.9 Magnesium Level 1.8 Alkaline Phosphatase 93 Aspartate Amino Transf (AST/SGOT) 14 Alanine Aminotransferase (ALT/SGPT) 16 Total Bilirubin 0.7 Sodium Level 135 Potassium Level 4.6 Chloride Level 99 Carbon Dioxide Level 22.4 Anion Gap 14 Estimat Glomerular Filtration Rate 28 Lactic Acid Level 4.9 B-Hydroxybutyrate 0.18 Urine Color YELLOW Urine Turbidity HAZY Urine pH 6.0 Urine Specific [place] 1.014 Urine Protein 30 Urine Glucose (UA) 1000 Urine Ketones NEG Urine Occult Blood MOD Urine Nitrite NEG Urine Bilirubin NEG Urine Urobilinogen LESS THAN 2.0 Urine Leukocyte Esterase LARGE Urine RBC 30 Urine WBC Urine Yeast (Budding) MANY Microscopic Urinalysis Comment CATH-CULTURE IND Date/Time Source Procedure Growth Status 05/01/17 19:25 Blood Peripheral Aerobic Blood Culture Pending Received 05/01/17 19:25 Blood Peripheral Anaerobic Blood Culture Pending Received 05/01/17 20:00 Urine Catheterized Urine Urine Culture Pending Received Result Diagram: 05/01/17192405/01/171924 Caprini VTE Risk Assessment Caprini VTE Risk Assessment: No/Low Risk (score <= 1) Caprini Risk Assessment Model Point Value = 1 Point Value = 2 Point Value = 3 Point Value = 5 Age 41-60 Minor surgery BMI > 25 kg/m2 Swollen legs Varicose veins or History of unexplained or recurrent spontaneous Oral contraceptives or hormone replacement Sepsis (< 1 month) Serious lung disease, including pneumonia (< 1 month) Abnormal pulmonary function Acute myocardial infarction Congestive heart failure (< 1 month) History of inflammatory bowel disease Medical patient at bed rest Age 61-74 Arthroscopic surgery Major open surgery (> 45 min) Laparoscopic surgery (> 45 min) Malignancy Confined to bed (> 72 hours) Immobilizing plaster cast Central venous access Age >= 75 History of VTE Family history of VTE Factor V Leiden Prothrombin [id number] Lupus anticoagulant Anticardiolipin antibodies Elevated serum homocysteine Heparin-induced thrombocytopenia Other congenital or acquired thrombophilia Stroke (< 1 month) Elective arthroplasty Hip, pelvis, or leg fracture Acute spinal cord injury (< 1 month) Prophylaxis Regimen Total Risk Factor Score Risk Level Prophylaxis Regimen 0-1 Low Early ambulation 2 Moderate Order ONE of the following: *Sequential Compression Device (SCD) *Heparin 5000 units SQ BID 3-4 Higher Order ONE of the following medications: *Heparin 5000 units SQ TID *Enoxaparin/Lovenox 40 mg SQ daily (WT < 150 kg, CrCl > 30 mL/min) *Enoxaparin/Lovenox 30 mg SQ daily (WT < 150 kg, CrCl > 10-29 mL/min) *Enoxaparin/Lovenox 30 mg SQ BID (WT < 150 kg, CrCl > 30 mL/min) AND/OR *Sequential Compression Device (SCD) 5 or more Highest Order ONE of the following medications: *Heparin 5000 units SQ TID (Preferred with Epidurals) *Enoxaparin/Lovenox 40 mg SQ daily (WT < 150 kg, CrCl > 30 mL/min) *Enoxaparin/Lovenox 30 mg SQ daily (WT < 150 kg, CrCl > 10-29 mL/min) *Enoxaparin/Lovenox 30 mg SQ BID (WT < 150 kg, CrCl > 30 mL/min) AND *Sequential Compression Device (SCD) Assessment and Plan Problem List: (1) Sepsis ICD Code: A41.9 - Sepsis, unspecified organism (2) UTI (urinary tract infection) ICD Code: N39.0 - Urinary tract infection, site not specified (3) CHF (congestive heart failure) ICD Code: I50.9 - Heart failure, unspecified (4) Urinary retention ICD Code: R33.9 - Retention of urine, unspecified Status: Acute (5) CARLEE (acute kidney injury) ICD Code: N17.9 - Acute kidney failure, unspecified Status: Resolved (6) HTN (hypertension) ICD Code: I10 - Essential (primary) hypertension (7) DM (diabetes mellitus) ICD Code: E11.9 - Type 2 diabetes mellitus without complications Assessment and Plan A/P: 1. Sepsis: Temp 100.6, HR 118. Lactic Acid 4.9, Source-UTI. S/p Blood/Urine cultures, IV Vanc/Zosyn in ER. Follow up cultures, repeat Lactic Acid, continue IV Abx. 2. UTI: U/a w/ UTI, continue w/ IV Abx as above. Follow up cultures. 3. Urinary Retention: h/o BPH, noted to have urinary retention/suprapubic distention at [facility], Dubon placement unsuccessful and sent to ER. Dubon place in ER without difficulty, 2L urine output after placement. IVF for replace fluid loss-caution w/ h/o CHF. Resume home Flomax, continue w/ IV Abx for UTI. 4. CARLEE: Creatinine 2.30, previously 1.23 04/13/17. Treatment as above. IVF for hydration, caution with CHF. The labs in a.m. 5. HTN: BP 180's on arrival, likely compounded by discomfort from abdominal distention/retention. BP currently 121/74, HR 93. Will monitor. 6. DM: Sliding scale w/ Accu-Cheks. 7. DVT Prophylaxis: SCD/Teds. 8. Social work for d/c planning as needed. 9. Case discussed w/ ER physician at length. Physician Certification 2 Midnight Certification Type: Admission for Inpatient Services Order for Inpatient Services The services are ordered in accordance with Medicare regulations or non- Medicare payer requirements, as applicable. In the case of services not specified as inpatient-only, they are appropriately provided as inpatient services in accordance with the 2-midnight benchmark. Estimated LOS (days): 2 days is the estimated time the patient will need to remain in the hospital, assuming treatment plan goals are met and no additional complications. Post-Hospital Plan: Not yet determined Shabana Garcia MD May 01, 2017 21:37
[2017-05-01] MEDS ORDERED: ALPRAZolam 0.5 MG TAB PO PRN (21:45)
[2017-05-01] MEDS ORDERED: ONDANSETRON HCL 4 MG/2 ML VIAL IVP PRN (21:45)
[2017-05-01] MEDS ORDERED: INSULIN DETEMIR 100 UNITS/ML VIAL SQ ONE (21:45)
[2017-05-01] MEDS ORDERED: ZOLPIDEM TARTRATE 10 MG TAB PO PRN (21:45)
[2017-05-01] MEDS ORDERED: ACETAMINOPHEN/HYDROcodone 325 MG/5 MG TAB PO PRN (21:45)
[2017-05-01] MEDS ORDERED: BISACODYL 10 MG SUPP RECTAL PRN (21:45)
[2017-05-01] MEDS ORDERED: SODIUM CHLORIDE 0.9% FLUSH 10 ML FLUSH IV FLUSH PRN (21:45)
[2017-05-01] MEDS ORDERED: LACTULOSE SYRUP 20 GM/30 ML CUP PO PRN (21:45)
[2017-05-01] MEDS ORDERED: GLUCAGON 1 MG/ML VIAL OTHER PRN (21:45)
[2017-05-01] MEDS ORDERED: ACETAMINOPHEN 325 MG TAB PO PRN (21:45)
[2017-05-01] MEDS ORDERED: DEXTROSE 50% IN WATER 50 ML VIAL(D50) IV PUSH PRN (21:45)
[2017-05-01] MEDS ORDERED: SENNOSIDES 8.6 MG TAB PO PRN (21:45)
[2017-05-01 21:58] VITALS: TEMP 98.7
[2017-05-01 22:08] LABS: LACTIC ACID GHOST NOT REPORTABLE
[2017-05-01] MEDS ORDERED: MORPHINE SULFATE 2 MG/ML INJ IV PRN (22:15)
[2017-05-01] MEDS: SODIUM CHLOR 0.9% 1000 ML INJ 1,000 ML IV SCH (23:19)
[2017-05-01 23:35] VITALS: BP 146/81; PULSE 63; RESP 16; O2SAT 100
[2017-05-02] VITALS (9 sets, daily range): BP systolic 110–164; BP diastolic 56–95; PULSE 56–103; RESP 16–18; TEMP 96.4–97.7; O2SAT 94–100
[2017-05-02 05:34] LABS: AUTOMATED NEUTROPHIL # 4.6 TH/MM3 (1.8-7.7); BASOPHIL % 0.4 % (0.0-2.0); EOSINOPHIL # 0.2 TH/MM3 (0-0.4); EOSINOPHIL % 2.6 % (0.0-4.0); HEMATOCRIT 30.5 % (39.0-51.0); HEMO FLAGS DIFF FINAL; LYMPH % 17.2 % (9.0-44.0); LYMPHOCYTE # 1.2 TH/MM3 (1.0-4.8); MEAN CELL VOLUME 87.2 FL (80.0-100.0); MEAN CORPUSCULAR HEMOGLOBIN 31.2 PG (27.0-34.0); MEAN CORPUSCULAR HGB CONC 35.7 % (32.0-36.0); MONO % 14.2 % (0.0-8.0); NEUT % 65.6 % (16.0-70.0); PLATELET COUNT 157 TH/MM3 (150-450); RED CELL DISTRIBUTION WIDTH 13.9 % (11.6-17.2)
[2017-05-02 06:10] LABS: ALKALINE PHOSPHATASE 66 U/L (45-117); ALT (GPT) 14 U/L (12-78); ANION GAP 8 MEQ/L (5-15); AST (GOT) 12 U/L (15-37); BICARBONATE 28.4 MEQ/L (21.0-32.0); BLOOD UREA NITROGEN 26 MG/DL (7-18); CHLORIDE 111 MEQ/L (98-107); GLOMERULAR FILTRATION RATE 44 ML/MIN (>89); POTASSIUM 3.6 MEQ/L (3.5-5.1); SODIUM (NA) 147 MEQ/L (136-145); TOTAL BILIRUBIN ADULT 0.5 MG/DL (0.2-1.0)
[2017-05-02] MEDS: INSULIN ASPART SUPPLEMENTAL SCALE SQ SCH ×4 (08:00→21:00)
[2017-05-02] MEDS: SODIUM CHLOR 0.9% 1000 ML INJ 1,000 ML IV SCH ×3 (09:05→22:08)
[2017-05-02] MEDS: DOCUSATE SODIUM 50 MG/SENNA 8.6 MG TAB PO SCH ×2 (09:06→22:09)
[2017-05-02] MEDS: SPIRONOLACTONE 25 MG TAB PO SCH (09:06)
[2017-05-02] MEDS: QUEtiapine FUMARATE 25 MG TAB PO SCH (09:06)
[2017-05-02] MEDS: FUROSEMIDE 20 MG TAB PO SCH (09:06)
[2017-05-02] MEDS: SODIUM CHLORIDE 0.9% FLUSH 10 ML FLUSH IV FLUSH SCH ×2 (09:07→22:09)
--- NOTE | 2017-05-02 14:51 | HHI.PR ---
Subjective Remarks This is a 81-year-old male with a PMH of Anxiety, Depression, HTN, Hyperlipidemia, BPH, CHF (Echo 04/08/17 w/ EF 25-30%) and DM who was sent to the ER from [facility] secondary to urinary retention. Patient unable to provide any history at this time. Per report, Dubon placement attempted at SNF, however unsuccessful at which time patient was sent to the ER. On arrival, BP 182/109, HR 118, O2 sat 97% on 2L NC, Temp 100.6. CBC unremarkable except for elevated neutrophil count. Creatinine 2.30, previously 1.23 on 04/13/17. BS 617. Lactic Acid 4.9. U/a w/ UTI. S/p Dubon placement in ER w/ 2L urine output. S/ p Zosyn in ER. 05-02 no new complaints very lethargic. Blood sugars are little better today Discussed with RN patient did not have much input is very lethargic at this time we'll get a.m. labs Objective Vitals Vital Signs Date Time Temp Pulse Resp B/P (MAP) Pulse Ox O2 Delivery O2 Flow Rate FiO2 05/02/17 11:59 97.4 88 17 139/86 (103) 100 05/02/17 08:00 97.0 79 18 141/74 (96) 97 05/02/17 03:30 96.4 92 18 123/95 (104) 99 05/02/17 03:30 05/02/17 02:51 73 16 110/61 (77) 100 Nasal Cannula 2.00 05/02/17 01:17 87 16 114/56 (75) 99 Nasal Cannula 2.00 05/01/17 23:35 63 16 146/81 (102) 100 Nasal Cannula 2.00 05/01/17 21:58 98.7 05/01/17 21:26 93 16 121/74 (90) 98 Nasal Cannula 2.00 05/01/17 19:10 100.6 118 20 182/109 (133) 97 I/O 05/01/17 05/01/17 05/01/17 05/02/17 05/02/17 05/02/17 07:00 15:00 23:00 07:00 15:00 23:00 Intake Total 665 ml 1250 ml Output Total 2600 ml 550 ml Balance -1935 ml 700 ml Intake Oral 0 ml IV Total 665 ml 1250 ml Output Urine Total 2600 ml 550 ml # Bowel Movements 0 Result Diagram: 05/02/17 0456 05/02/17 0456 Other Results Laboratory Tests Test 05/01/17 19:25 05/01/17 20:00 05/01/17 22:50 05/02/17 00:50 White Blood Count 9.2 TH/MM3 Red Blood Count 4.09 MIL/MM3 Hemoglobin 12.4 GM/DL Hematocrit 36.4 % Mean Corpuscular Volume 89.0 FL Mean Corpuscular Hemoglobin 30.3 PG Mean Corpuscular Hemoglobin Concent 34.1 % Red Cell Distribution Width 13.7 % Platelet Count 171 TH/MM3 Mean Platelet Volume 9.3 FL Neutrophils (%) (Auto) 89.2 % Lymphocytes (%) (Auto) 3.7 % Monocytes (%) (Auto) 6.9 % Eosinophils (%) (Auto) 0.0 % Basophils (%) (Auto) 0.2 % Neutrophils # (Auto) 8.2 TH/MM3 Lymphocytes # (Auto) 0.3 TH/MM3 Monocytes # (Auto) 0.6 TH/MM3 Eosinophils # (Auto) 0.0 TH/MM3 Basophils # (Auto) 0.0 TH/MM3 CBC Comment DIFF FINAL Differential Comment Prothrombin Time 11.1 SEC Prothromb Time International Ratio 1.1 RATIO Activated Partial Thromboplast Time 21.7 SEC Blood Urea Nitrogen 33 MG/DL Creatinine 2.30 MG/DL Random Glucose 617 MG/DL Total Protein 7.1 GM/DL Albumin 3.4 GM/DL Calcium Level 8.9 MG/DL Magnesium Level 1.8 MG/DL Alkaline Phosphatase 93 U/L Aspartate Amino Transf (AST/SGOT) 14 U/L Alanine Aminotransferase (ALT/SGPT) 16 U/L Total Bilirubin 0.7 MG/DL Sodium Level 135 MEQ/L Potassium Level 4.6 MEQ/L Chloride Level 99 MEQ/L Carbon Dioxide Level 22.4 MEQ/L Anion Gap 14 MEQ/L Estimat Glomerular Filtration Rate 28 ML/MIN Lactic Acid Level 4.9 mmol/L 4.5 mmol/L 3.4 mmol/L B-Hydroxybutyrate 0.18 MMOL/L Urine Color YELLOW Urine Turbidity HAZY Urine pH 6.0 Urine Specific [place] 1.014 Urine Protein 30 mg/dL Urine Glucose (UA) 1000 mg/dL Urine Ketones NEG mg/dL Urine Occult Blood MOD Urine Nitrite NEG Urine Bilirubin NEG Urine Urobilinogen LESS THAN 2.0 MG/DL Urine Leukocyte Esterase LARGE Urine RBC 30 /hpf Urine WBC /hpf Urine Yeast (Budding) MANY Microscopic Urinalysis Comment CATH-CULTURE IND Test 05/02/17 04:56 White Blood Count 7.0 TH/MM3 Red Blood Count 3.50 MIL/MM3 Hemoglobin 10.9 GM/DL Hematocrit 30.5 % Mean Corpuscular Volume 87.2 FL Mean Corpuscular Hemoglobin 31.2 PG Mean Corpuscular Hemoglobin Concent 35.7 % Red Cell Distribution Width 13.9 % Platelet Count 157 TH/MM3 Mean Platelet Volume 9.0 FL Neutrophils (%) (Auto) 65.6 % Lymphocytes (%) (Auto) 17.2 % Monocytes (%) (Auto) 14.2 % Eosinophils (%) (Auto) 2.6 % Basophils (%) (Auto) 0.4 % Neutrophils # (Auto) 4.6 TH/MM3 Lymphocytes # (Auto) 1.2 TH/MM3 Monocytes # (Auto) 1.0 TH/MM3 Eosinophils # (Auto) 0.2 TH/MM3 Basophils # (Auto) 0.0 TH/MM3 CBC Comment DIFF FINAL Differential Comment Blood Urea Nitrogen 26 MG/DL Creatinine 1.52 MG/DL Random Glucose 76 MG/DL Total Protein 5.8 GM/DL Albumin 2.7 GM/DL Calcium Level 8.3 MG/DL Alkaline Phosphatase 66 U/L Aspartate Amino Transf (AST/SGOT) 12 U/L Alanine Aminotransferase (ALT/SGPT) 14 U/L Total Bilirubin 0.5 MG/DL Sodium Level 147 MEQ/L Potassium Level 3.6 MEQ/L Chloride Level 111 MEQ/L Carbon Dioxide Level 28.4 MEQ/L Anion Gap 8 MEQ/L Estimat Glomerular Filtration Rate 44 ML/MIN Imaging Last Impressions Chest X-Ray 05/01/17 1911 Signed Impressions: Service Date/Time: Monday, May 01, 2017 19:43 - CONCLUSION: Normal examination. Dallas Pearce MD Objective Remarks GENERAL: Lethargic appears older than stated age did not answer any questions at this time SKIN: Warm and dry. HEAD: Atraumatic. Normocephalic. EYES: Pupils equal and round. No scleral icterus. No injection or drainage. ENT: No nasal bleeding or discharge. Mucous membranes pink and moist. NECK: Trachea midline. No JVD. Supple CARDIOVASCULAR: Regular rate and rhythm. S1 and S2 no S3 or S4 RESPIRATORY: No accessory muscle use. Clear to auscultation. Breath sounds equal bilaterally. GASTROINTESTINAL: Abdomen soft, non-tender, nondistended. Hepatic and splenic margins not palpable. Dubon catheter in place MUSCULOSKELETAL: Extremities without clubbing, cyanosis, or edema. No obvious deformities. NEUROLOGICAL: Not Awake and alert. No obvious cranial nerve deficits. Motor grossly within normal limits. 4 out of 5 muscle strength in the arms and legs. ABNormal speech. PSYCHIATRIC: INAppropriate mood and affect; insight and judgment ABnormal. Very lethargic at this time Medications and IVs Current Medications Sodium Chloride 500 ml @ 500 mls/hr BOLUS ONCE IV Last administered on 20:12; Start 05/01/17 at 19:45; Stop 05/01/17 at 20:44; Status DC Acetaminophen 65 ml @ 400 mls/hr ONCE ONCE IV Last administered on 21:20; Start 05/01/17 at 20:15; Stop 05/01/17 at 20:24; Status DC Piperacillin Sod/ Tazobactam Sod 100 ml @ 200 mls/hr ONCE STAT IV Last administered on 05/01/17 22:15; Start 05/01/17 at 20:47; Stop 05/01/17 at 21 :16; Status DC Vancomycin HCl 1000 mg/Sodium Chloride 250 ml @ 250 mls/hr ONCE STAT IV Last administered on 05/01/17 21:27; Start 05/01/17 at 20:47; Stop 05/01/17 at 21 :46; Status DC Sodium Chloride 1,000 ml @ 999 mls/hr BOLUS ONCE IV Last administered on 21:27; Start 05/01/17 at 21:00; Stop 05/01/17 at 22:00; Status DC Insulin Human Regular (NovoLIN R INJ) 15 units ONCE ONCE SQ Last administered on 05/01/17 21:27; Start 05/01/17 at 21:00; Stop 05/01/17 at 21:01; Status DC Dextrose (D50w (Vial) Inj) 50 ml UNSCH PRN IV PUSH HYPOGLYCEMIA-SEE COMMENTS; Start 05/01/17 at 21:45 Glucagon (Glucagon Inj) 1 mg UNSCH PRN OTHER HYPOGLYCEMIA-SEE COMMENTS; Start 05/01/17 at 21:45 Insulin Aspart (NovoLOG SUPPLEMENTAL SCALE) 1 ACHS SLIDING SCALE SQ ; Start at 08:00 Ceftriaxone Sodium 1000 mg/ Sodium Chloride 100 ml @ 200 mls/hr Q24H IV ; Start 05/02/17 at 23:00 Sodium Chloride 1,000 ml @ 100 mls/hr Q10H IV Last administered on 05/02/17 09:05; Start 05/01/17 at 22:00 Sodium Chloride (NS Flush) 2 ml UNSCH PRN IV FLUSH FLUSH AFTER USING IV ACCESS ; Start 05/01/17 at 21:45 Sodium Chloride (NS Flush) 2 ml BID IV FLUSH Last administered on 05/02/17 09 :07; Start 05/02/17 at 09:00 Ondansetron HCl (Zofran Inj) 4 mg Q6H PRN IVP NAUSEA OR VOMITING; Start at 21:45 Acetaminophen (Tylenol) 650 mg Q6H PRN PO FEVER/PAIN SCALE 1 TO 2; Start 05/01 at 21:45 Acetaminophen/ Hydrocodone Bitart ([place] 5-325 Mg) 1 tab Q4H PRN PO PAIN SCALE 3 TO 5; Start 05/01/17 at 21:45 Morphine Sulfate (Morphine Inj) 2 mg Q3H PRN IV PAIN 6-10; Start 05/01/17 at 22:15 Senna/Docusate Sodium (Magui-Colace) 1 tab BID PO Last administered on 09:06; Start 05/02/17 at 09:00 Magnesium Hydroxide (Milk Of Magnesia Liq) 30 ml Q12H PRN PO Mild constipation ; Start 05/01/17 at 21:45 Sennosides (Senokot) 17.2 mg Q12H PRN PO Moderate constipation; Start at 21:45 Bisacodyl (Dulcolax Supp) 10 mg DAILY PRN RECTAL SEVERE CONSITIPATION; Start 05/01/17 at 21:45 Lactulose (Lactulose Liq) 30 ml DAILY PRN PO SEVERE CONSITIPATION Last administered on 05/02/17 09:10; Start 05/01/17 at 21:45 Alprazolam (Xanax) 0.5 mg Q6H PRN PO ANXIETY; Start 05/01/17 at 21:45 Furosemide (Lasix) 20 mg DAILY PO Last administered on 05/02/17 09:06; Start 05/02/17 at 09:00 Quetiapine Fumarate (SEROquel) 25 mg DAILY PO Last administered on 05/02/17 09:06; Start 05/02/17 at 09:00 Spironolactone (Aldactone) 25 mg DAILY PO Last administered on 05/02/17 09:06 ; Start 05/02/17 at 09:00 Tamsulosin HCl (Flomax) 0.4 mg HS PO ; Start 05/02/17 at 21:00 Zolpidem Tartrate (Ambien) 10 mg HS PRN PO INSOMNIA; Start 05/01/17 at 21:45 Insulin Detemir (Levemir Inj) 10 units ONCE ONCE SQ Last administered on 05/01 23:19; Start 05/01/17 at 21:45; Stop 05/01/17 at 22:04; Status DC A/P Problem List: (1) Sepsis ICD Code: A41.9 - Sepsis, unspecified organism (2) UTI (urinary tract infection) ICD Code: N39.0 - Urinary tract infection, site not specified (3) CHF (congestive heart failure) ICD Code: I50.9 - Heart failure, unspecified (4) Urinary retention ICD Code: R33.9 - Retention of urine, unspecified Status: Acute (5) CARLEE (acute kidney injury) ICD Code: N17.9 - Acute kidney failure, unspecified Status: Resolved (6) HTN (hypertension) ICD Code: I10 - Essential (primary) hypertension (7) DM (diabetes mellitus) ICD Code: E11.9 - Type 2 diabetes mellitus without complications Assessment and Plan 1. Sepsis: Temp 100.6, HR 118. Lactic Acid 4.9, Source-UTI. S/p Blood/Urine cultures, IV Vanc/Zosyn in ER. Follow up cultures, repeat Lactic Acid, continue IV Abx. 2. UTI: U/a w/ UTI, continue w/ IV Abx as above. Follow up cultures. 3. Urinary Retention: h/o BPH, noted to have urinary retention/suprapubic distention at [facility], Dubon placement unsuccessful and sent to ER. Dubon place in ER without difficulty, 2L urine output after placement. IVF for replace fluid loss-caution w/ h/o CHF. Resume home Flomax, continue w/ IV Abx for UTI. 4. CARLEE: Creatinine 2.30, previously 1.23 04/13/17. Treatment as above. IVF for hydration, caution with CHF. The labs in a.m. 5. HTN: BP 180's on arrival, likely compounded by discomfort from abdominal distention/retention. BP currently 121/74, HR 93. Will monitor. 6. DM: Sliding scale w/ Accu-Cheks. 7. DVT Prophylaxis: SCD/Teds. 8. Social work for d/c planning as needed. Will need physical therapy and occupational therapy May need soft mittens without restraints A.m. labs Discharge Planning Pending improvement will need to go back to SNF at discharge Fernando Salazar DO May 02, 2017 14:50
[2017-05-02] MEDS ORDERED: PILL SPLITTER OTHER PRN (15:00)
--- NOTE | 2017-05-02 15:42 | EKG ---
Date Performed: 05/01/2017 Time Performed: 19:42:21 PTAGE: 81 years EKG: SINUS TACHYCARDIA POSSIBLE LEFT ATRIAL ENLARGEMENT BORDERLINE LEFT AXIS DEVIATION NONSPECIF IC ST ELEVATION ABNORMAL RHYTHM ECG Since PREVIOUS TRACING , no significant change noted PREVIOUS TRACING 04/09/2017 09.19 DOCTOR: Brenna Joseph Interpretating Date/Time 05/02/2017 15:41:09
[2017-05-02] MEDS: cefTRIAXone INJ 1,000 MG in SODIUM CHLORIDE 0.9% INJ 100 ML IV SCH (22:08)
[2017-05-02] MEDS: TAMSULOSIN HCL 0.4 MG CAP PO SCH (22:09)
[2017-05-02] MEDS: cloNIDine HCL 0.1 MG TAB PO SCH (22:09)
[2017-05-02] MEDS: INSULIN DETEMIR 100 UNITS/ML VIAL SQ SCH (22:09)
[2017-05-03] VITALS (9 sets, daily range): BP systolic 117–183; BP diastolic 58–98; PULSE 69–94; RESP 16–20; TEMP 96.4–98.6; O2SAT 94–98
[2017-05-03] MEDS: INSULIN ASPART SUPPLEMENTAL SCALE SQ SCH ×4 (08:00→20:04)
[2017-05-03] MEDS: MAGNESIUM HYDROXIDE SUSP 30 ML CUP PO PRN ×2 (08:05→13:04)
[2017-05-03] MEDS: SODIUM CHLORIDE 0.9% FLUSH 10 ML FLUSH IV FLUSH SCH ×2 (08:07→20:04)
[2017-05-03] MEDS: SPIRONOLACTONE 25 MG TAB PO SCH (08:17)
[2017-05-03] MEDS: FUROSEMIDE 20 MG TAB PO SCH (08:17)
[2017-05-03] MEDS: QUEtiapine FUMARATE 25 MG TAB PO SCH (08:17)
[2017-05-03] MEDS: cloNIDine HCL 0.1 MG TAB PO SCH ×2 (08:17→20:04)
[2017-05-03] MEDS: DOCUSATE SODIUM 50 MG/SENNA 8.6 MG TAB PO SCH ×2 (08:17→20:03)
[2017-05-03] MEDS: amLODIPine BESYLATE 5 MG TAB PO SCH (08:17)
[2017-05-03] MEDS: SERTRALINE HCL 50 MG TAB PO SCH (08:17)
--- NOTE | 2017-05-03 11:44 | HHI.PR ---
Subjective Remarks This is a 81-year-old male with a PMH of Anxiety, Depression, HTN, Hyperlipidemia, BPH, CHF (Echo 04/08/17 w/ EF 25-30%) and DM who was sent to the ER from SNF secondary to urinary retention. Patient unable to provide any history at this time. Per report, Dubon placement attempted at SNF, however unsuccessful at which time patient was sent to the ER. On arrival, BP 182/109, HR 118, O2 sat 97% on 2L NC, Temp 100.6. CBC unremarkable except for elevated neutrophil count. Creatinine 2.30, previously 1.23 on 04/13/17. BS 617. Lactic Acid 4.9. U/a w/ UTI. S/p Dubon placement in ER w/ 2L urine output. S/ p Zosyn in ER. 05-02 no new complaints very lethargic. Blood sugars are little better today Discussed with RN patient did not have much input is very lethargic at this time we'll get a.m. labs 05-03 patient is refusing to eat so far today. Is refusing all lab draws. Have discussed with RN patient is only oriented times self. We'll need to return to SNF Still has Dubon in place Objective Vitals Vital Signs Date Time Temp Pulse Resp B/P (MAP) Pulse Ox O2 Delivery O2 Flow Rate FiO2 05/03/17 11:09 97.1 94 16 151/82 (105) 94 05/03/17 08:53 Nasal Cannula 2.00 05/03/17 08:14 97.3 76 16 140/58 (85) 96 05/03/17 04:14 96.4 75 17 117/81 (93) 98 05/03/17 00:15 96.8 69 18 124/91 (102) 98 05/02/17 20:31 96.9 103 17 164/90 (114) 95 05/02/17 19:32 Nasal Cannula 2.00 05/02/17 16:00 97.7 56 18 126/80 (95) 94 05/02/17 13:24 63 05/02/17 11:59 97.4 88 17 139/86 (103) 100 I/O 05/02/17 05/02/17 05/02/17 05/03/17 05/03/17 05/03/17 07:00 15:00 23:00 07:00 15:00 23:00 Intake Total 1250 ml 240 ml 801 ml 1277 ml Output Total 550 ml 900 ml 700 ml 1000 ml Balance 700 ml -660 ml 101 ml 277 ml Intake Oral 0 ml 240 ml 120 ml 120 ml IV Total 1250 ml 681 ml 1157 ml Output Urine Total 550 ml 900 ml 700 ml 1000 ml # Bowel Movements 0 0 0 0 Result Diagram: 05/02/17 0456 05/02/17 0456 Other Results Laboratory Tests Test 05/01/17 19:25 05/01/17 20:00 05/01/17 22:50 05/02/17 00:50 White Blood Count 9.2 TH/MM3 Red Blood Count 4.09 MIL/MM3 Hemoglobin 12.4 GM/DL Hematocrit 36.4 % Mean Corpuscular Volume 89.0 FL Mean Corpuscular Hemoglobin 30.3 PG Mean Corpuscular Hemoglobin Concent 34.1 % Red Cell Distribution Width 13.7 % Platelet Count 171 TH/MM3 Mean Platelet Volume 9.3 FL Neutrophils (%) (Auto) 89.2 % Lymphocytes (%) (Auto) 3.7 % Monocytes (%) (Auto) 6.9 % Eosinophils (%) (Auto) 0.0 % Basophils (%) (Auto) 0.2 % Neutrophils # (Auto) 8.2 TH/MM3 Lymphocytes # (Auto) 0.3 TH/MM3 Monocytes # (Auto) 0.6 TH/MM3 Eosinophils # (Auto) 0.0 TH/MM3 Basophils # (Auto) 0.0 TH/MM3 CBC Comment DIFF FINAL Differential Comment Prothrombin Time 11.1 SEC Prothromb Time International Ratio 1.1 RATIO Activated Partial Thromboplast Time 21.7 SEC Blood Urea Nitrogen 33 MG/DL Creatinine 2.30 MG/DL Random Glucose 617 MG/DL Total Protein 7.1 GM/DL Albumin 3.4 GM/DL Calcium Level 8.9 MG/DL Magnesium Level 1.8 MG/DL Alkaline Phosphatase 93 U/L Aspartate Amino Transf (AST/SGOT) 14 U/L Alanine Aminotransferase (ALT/SGPT) 16 U/L Total Bilirubin 0.7 MG/DL Sodium Level 135 MEQ/L Potassium Level 4.6 MEQ/L Chloride Level 99 MEQ/L Carbon Dioxide Level 22.4 MEQ/L Anion Gap 14 MEQ/L Estimat Glomerular Filtration Rate 28 ML/MIN Lactic Acid Level 4.9 mmol/L 4.5 mmol/L 3.4 mmol/L B-Hydroxybutyrate 0.18 MMOL/L Urine Color YELLOW Urine Turbidity HAZY Urine pH 6.0 Urine Specific [place] 1.014 Urine Protein 30 mg/dL Urine Glucose (UA) 1000 mg/dL Urine Ketones NEG mg/dL Urine Occult Blood MOD Urine Nitrite NEG Urine Bilirubin NEG Urine Urobilinogen LESS THAN 2.0 MG/DL Urine Leukocyte Esterase LARGE Urine RBC 30 /hpf Urine WBC /hpf Urine Yeast (Budding) MANY Microscopic Urinalysis Comment CATH-CULTURE IND Test 05/02/17 04:56 White Blood Count 7.0 TH/MM3 Red Blood Count 3.50 MIL/MM3 Hemoglobin 10.9 GM/DL Hematocrit 30.5 % Mean Corpuscular Volume 87.2 FL Mean Corpuscular Hemoglobin 31.2 PG Mean Corpuscular Hemoglobin Concent 35.7 % Red Cell Distribution Width 13.9 % Platelet Count 157 TH/MM3 Mean Platelet Volume 9.0 FL Neutrophils (%) (Auto) 65.6 % Lymphocytes (%) (Auto) 17.2 % Monocytes (%) (Auto) 14.2 % Eosinophils (%) (Auto) 2.6 % Basophils (%) (Auto) 0.4 % Neutrophils # (Auto) 4.6 TH/MM3 Lymphocytes # (Auto) 1.2 TH/MM3 Monocytes # (Auto) 1.0 TH/MM3 Eosinophils # (Auto) 0.2 TH/MM3 Basophils # (Auto) 0.0 TH/MM3 CBC Comment DIFF FINAL Differential Comment Blood Urea Nitrogen 26 MG/DL Creatinine 1.52 MG/DL Random Glucose 76 MG/DL Total Protein 5.8 GM/DL Albumin 2.7 GM/DL Calcium Level 8.3 MG/DL Alkaline Phosphatase 66 U/L Aspartate Amino Transf (AST/SGOT) 12 U/L Alanine Aminotransferase (ALT/SGPT) 14 U/L Total Bilirubin 0.5 MG/DL Sodium Level 147 MEQ/L Potassium Level 3.6 MEQ/L Chloride Level 111 MEQ/L Carbon Dioxide Level 28.4 MEQ/L Anion Gap 8 MEQ/L Estimat Glomerular Filtration Rate 44 ML/MIN Imaging Last Impressions Chest X-Ray 05/01/17 1911 Signed Impressions: Service Date/Time: Monday, May 01, 2017 19:43 - CONCLUSION: Normal examination. Dallas Pearce MD Objective Remarks GENERAL: Lethargic appears older than stated age did not answer any questions at this time SKIN: Warm and dry. HEAD: Atraumatic. Normocephalic. EYES: Pupils equal and round. No scleral icterus. No injection or drainage. ENT: No nasal bleeding or discharge. Mucous membranes pink and moist. NECK: Trachea midline. No JVD. Supple CARDIOVASCULAR: Regular rate and rhythm. S1 and S2 no S3 or S4 RESPIRATORY: No accessory muscle use. Clear to auscultation. Breath sounds equal bilaterally. GASTROINTESTINAL: Abdomen soft, non-tender, nondistended. Hepatic and splenic margins not palpable. Dubon catheter in place MUSCULOSKELETAL: Extremities without clubbing, cyanosis, or edema. No obvious deformities. NEUROLOGICAL: Not Awake and alert. No obvious cranial nerve deficits. Motor grossly within normal limits. 4 out of 5 muscle strength in the arms and legs. ABNormal speech. PSYCHIATRIC: INAppropriate mood and affect; insight and judgment ABnormal. Very lethargic at this time Medications and IVs Current Medications Sodium Chloride 500 ml @ 500 mls/hr BOLUS ONCE IV Last administered on 20:12; Start 05/01/17 at 19:45; Stop 05/01/17 at 20:44; Status DC Acetaminophen 65 ml @ 400 mls/hr ONCE ONCE IV Last administered on 21:20; Start 05/01/17 at 20:15; Stop 05/01/17 at 20:24; Status DC Piperacillin Sod/ Tazobactam Sod 100 ml @ 200 mls/hr ONCE STAT IV Last administered on 05/01/17 22:15; Start 05/01/17 at 20:47; Stop 05/01/17 at 21 :16; Status DC Vancomycin HCl 1000 mg/Sodium Chloride 250 ml @ 250 mls/hr ONCE STAT IV Last administered on 05/01/17 21:27; Start 05/01/17 at 20:47; Stop 05/01/17 at 21 :46; Status DC Sodium Chloride 1,000 ml @ 999 mls/hr BOLUS ONCE IV Last administered on 21:27; Start 05/01/17 at 21:00; Stop 05/01/17 at 22:00; Status DC Insulin Human Regular (NovoLIN R INJ) 15 units ONCE ONCE SQ Last administered on 05/01/17 21:27; Start 05/01/17 at 21:00; Stop 05/01/17 at 21:01; Status DC Dextrose (D50w (Vial) Inj) 50 ml UNSCH PRN IV PUSH HYPOGLYCEMIA-SEE COMMENTS; Start 05/01/17 at 21:45 Glucagon (Glucagon Inj) 1 mg UNSCH PRN OTHER HYPOGLYCEMIA-SEE COMMENTS; Start 05/01/17 at 21:45 Insulin Aspart (NovoLOG SUPPLEMENTAL SCALE) 1 ACHS SLIDING SCALE SQ Last administered on 05/02/17 21:00; Start 05/02/17 at 08:00 Ceftriaxone Sodium 1000 mg/ Sodium Chloride 100 ml @ 200 mls/hr Q24H IV Last administered on 05/02/17 22:08; Start 05/02/17 at 23:00 Sodium Chloride 1,000 ml @ 100 mls/hr Q10H IV Last administered on 05/02/17 22:08; Start 05/01/17 at 22:00 Sodium Chloride (NS Flush) 2 ml UNSCH PRN IV FLUSH FLUSH AFTER USING IV ACCESS ; Start 05/01/17 at 21:45 Sodium Chloride (NS Flush) 2 ml BID IV FLUSH Last administered on 05/02/17 22 :09; Start 05/02/17 at 09:00 Ondansetron HCl (Zofran Inj) 4 mg Q6H PRN IVP NAUSEA OR VOMITING; Start at 21:45 Acetaminophen (Tylenol) 650 mg Q6H PRN PO FEVER/PAIN SCALE 1 TO 2; Start 05/01 at 21:45 Acetaminophen/ Hydrocodone Bitart ([place] 5-325 Mg) 1 tab Q4H PRN PO PAIN SCALE 3 TO 5; Start 05/01/17 at 21:45 Morphine Sulfate (Morphine Inj) 2 mg Q3H PRN IV PAIN 6-10; Start 05/01/17 at 22:15 Senna/Docusate Sodium (Magui-Colace) 1 tab BID PO Last administered on 22:09; Start 05/02/17 at 09:00 Magnesium Hydroxide (Milk Of Magnesia Liq) 30 ml Q12H PRN PO Mild constipation Last administered on 05/03/17 08:05; Start 05/01/17 at 21:45 Sennosides (Senokot) 17.2 mg Q12H PRN PO Moderate constipation; Start at 21:45 Bisacodyl (Dulcolax Supp) 10 mg DAILY PRN RECTAL SEVERE CONSITIPATION; Start 05/01/17 at 21:45 Lactulose (Lactulose Liq) 30 ml DAILY PRN PO SEVERE CONSITIPATION Last administered on 05/02/17 09:10; Start 05/01/17 at 21:45 Alprazolam (Xanax) 0.5 mg Q6H PRN PO ANXIETY; Start 05/01/17 at 21:45 Furosemide (Lasix) 20 mg DAILY PO Last administered on 05/02/17 09:06; Start 05/02/17 at 09:00 Quetiapine Fumarate (SEROquel) 25 mg DAILY PO Last administered on 05/02/17 09:06; Start 05/02/17 at 09:00 Spironolactone (Aldactone) 25 mg DAILY PO Last administered on 05/02/17 09:06 ; Start 05/02/17 at 09:00 Tamsulosin HCl (Flomax) 0.4 mg HS PO Last administered on 05/02/17 22:09; Start 05/02/17 at 21:00 Zolpidem Tartrate (Ambien) 10 mg HS PRN PO INSOMNIA; Start 05/01/17 at 21:45 Insulin Detemir (Levemir Inj) 10 units ONCE ONCE SQ Last administered on 05/01 23:19; Start 05/01/17 at 21:45; Stop 05/01/17 at 22:04; Status DC Insulin Detemir (Levemir Inj) 10 units HS SQ Last administered on 05/02/17 22 :09; Start 05/02/17 at 21:00 Amlodipine Besylate (Norvasc) 5 mg DAILY PO ; Start 05/03/17 at 09:00 Clonidine (Catapres) 0.1 mg BID PO Last administered on 05/02/17 22:09; Start 05/02/17 at 21:00 Sertraline HCl (Zoloft) 25 mg DAILY PO ; Start 05/03/17 at 09:00 Miscellaneous (Pill Splitter) 1 ea UNSCH PRN OTHER SEE LABEL COMMENTS; Start 12/18/17 at 15:00 A/P Problem List: (1) Sepsis ICD Code: A41.9 - Sepsis, unspecified organism (2) UTI (urinary tract infection) ICD Code: N39.0 - Urinary tract infection, site not specified (3) CHF (congestive heart failure) ICD Code: I50.9 - Heart failure, unspecified (4) Urinary retention ICD Code: R33.9 - Retention of urine, unspecified Status: Acute (5) CARLEE (acute kidney injury) ICD Code: N17.9 - Acute kidney failure, unspecified Status: Resolved (6) HTN (hypertension) ICD Code: I10 - Essential (primary) hypertension (7) DM (diabetes mellitus) ICD Code: E11.9 - Type 2 diabetes mellitus without complications Assessment and Plan 1. Sepsis: Temp 100.6, HR 118. Lactic Acid 4.9, Source-UTI. S/p Blood/Urine cultures, IV Vanc/Zosyn in ER. Follow up cultures, repeat Lactic Acid, continue IV Abx. 2. UTI: U/a w/ UTI, continue w/ IV Abx as above. Follow up cultures. 3. Urinary Retention: h/o BPH, noted to have urinary retention/suprapubic distention at [facility], Dubon placement unsuccessful and sent to ER. Dubon place in ER without difficulty, 2L urine output after placement. IVF for replace fluid loss-caution w/ h/o CHF. Resume home Flomax, continue w/ IV Abx for UTI. 4. CARLEE: Creatinine 2.30, previously 1.23 04/13/17. Treatment as above. IVF for hydration, caution with CHF. The labs in a.m. TRY D5NS WITH 20KCL AT 100ML/ HR 5. HTN: BP 180's on arrival, likely compounded by discomfort from abdominal distention/retention. BP currently 121/74, HR 93. Will monitor. 6. DM: Sliding scale w/ Accu-Cheks. 7. DVT Prophylaxis: SCD/Teds. 8. Social work for d/c planning as needed. Will need physical therapy and occupational therapy May need soft mittens without restraints A.m. labs Discharge Planning Pending improvement will need to go back to SNF at discharge AND OR PALLIATIVE CARE Fernando Salazar DO May 03, 2017 11:44
[2017-05-03] MEDS: D5-NS + KCL 20 MEQ INJ 1,000 ML IV SCH ×2 (13:01→21:45)
[2017-05-03 14:07] LABS: AUTOMATED NEUTROPHIL # 5.3 TH/MM3 (1.8-7.7); BASOPHIL % 0.4 % (0.0-2.0); EOSINOPHIL # 0.1 TH/MM3 (0-0.4); EOSINOPHIL % 0.9 % (0.0-4.0); HEMATOCRIT 29.7 % (39.0-51.0); HEMO FLAGS DIFF FINAL; LYMPH % 12.8 % (9.0-44.0); LYMPHOCYTE # 0.9 TH/MM3 (1.0-4.8); MEAN CELL VOLUME 87.4 FL (80.0-100.0); MEAN CORPUSCULAR HEMOGLOBIN 31.3 PG (27.0-34.0); MEAN CORPUSCULAR HGB CONC 35.7 % (32.0-36.0); MONO % 7.6 % (0.0-8.0); NEUT % 78.3 % (16.0-70.0); PLATELET COUNT 167 TH/MM3 (150-450); RED CELL DISTRIBUTION WIDTH 13.3 % (11.6-17.2); WHITE BLOOD COUNT 6.8 TH/MM3 (4.0-11.0)
[2017-05-03 14:09] LABS: ANION GAP 11 MEQ/L (5-15); AST (GOT) 15 U/L (15-37); BICARBONATE 24.8 MEQ/L (21.0-32.0); BLOOD UREA NITROGEN 15 MG/DL (7-18); CHLORIDE 105 MEQ/L (98-107); GLOMERULAR FILTRATION RATE 66 ML/MIN (>89); MAGNESIUM 1.6 MG/DL (1.5-2.5); POTASSIUM 3.8 MEQ/L (3.5-5.1); SODIUM (NA) 141 MEQ/L (136-145)
[2017-05-03 14:11] LABS: ALT (GPT) 10 U/L (12-78)
[2017-05-03 14:27] LABS: ALKALINE PHOSPHATASE 58 U/L (45-117); TOTAL BILIRUBIN ADULT 0.4 MG/DL (0.2-1.0)
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
[2017-05-03 17:33] LABS: HEMOGLOBIN A1a 1.4 %; HEMOGLOBIN A1b 2.2 %; HEMOGLOBIN Ao 81.9 %; HEMOGLOBIN LA1C 2.2 %; HEMOGLOBIN P3 4.3 %
[2017-05-03] MEDS: INSULIN DETEMIR 100 UNITS/ML VIAL SQ SCH (20:03)
[2017-05-03] MEDS: TAMSULOSIN HCL 0.4 MG CAP PO SCH (20:04)
[2017-05-03] MEDS: cefTRIAXone INJ 1,000 MG in SODIUM CHLORIDE 0.9% INJ 100 ML IV SCH (23:50)
[2017-05-04 00:18] VITALS: BP 155/85; PULSE 68; RESP 18; TEMP 96.7; O2SAT 96
[2017-05-04 04:09] VITALS: BP 157/74; PULSE 74; RESP 17; TEMP 96.9; O2SAT 98
[2017-05-04 07:47] VITALS: BP 172/76; PULSE 75; RESP 19; TEMP 96.7; O2SAT 98
[2017-05-04 08:16] LABS: AUTOMATED NEUTROPHIL # 3.9 TH/MM3 (1.8-7.7); BASOPHIL % 0.7 % (0.0-2.0); EOSINOPHIL # 0.2 TH/MM3 (0-0.4); EOSINOPHIL % 3.7 % (0.0-4.0); HEMATOCRIT 34.4 % (39.0-51.0); HEMO FLAGS DIFF FINAL; LYMPH % 16.6 % (9.0-44.0); LYMPHOCYTE # 0.9 TH/MM3 (1.0-4.8); MEAN CELL VOLUME 87.8 FL (80.0-100.0); MEAN CORPUSCULAR HEMOGLOBIN 31.1 PG (27.0-34.0); MEAN CORPUSCULAR HGB CONC 35.4 % (32.0-36.0); PLATELET COUNT 189 TH/MM3 (150-450); RED BLOOD COUNT 3.91 MIL/MM3 (4.50-5.90); RED CELL DISTRIBUTION WIDTH 13.7 % (11.6-17.2); WHITE BLOOD COUNT 5.5 TH/MM3 (4.0-11.0)
--- NOTE | 2017-05-04 08:26 | HHI.PR ---
Subjective Remarks In bed appears pleasantly confused. Awake and oriented. Poor insight. Says she is not eating much . Did not eat breakfast. No fever ro chills.No n/v/d/c. Denies fever or chills. No sob, chest pain. Objective Vitals Vital Signs Date Time Temp Pulse Resp B/P (MAP) Pulse Ox O2 Delivery O2 Flow Rate FiO2 05/04/17 07:47 96.7 75 19 172/76 (108) 98 05/04/17 04:09 96.9 74 17 157/74 (101) 98 05/04/17 00:18 96.7 68 18 155/85 (108) 96 05/03/17 20:45 96.4 72 18 183/98 (126) 96 05/03/17 20:00 86 05/03/17 16:00 97.7 77 18 138/60 (86) 97 05/03/17 13:24 81 05/03/17 11:09 97.1 94 16 151/82 (105) 94 05/03/17 08:53 Nasal Cannula 2.00 I/O 05/03/17 05/03/17 05/03/17 05/04/17 05/04/17 05/04/17 07:00 15:00 23:00 07:00 15:00 23:00 Intake Total 1277 ml 60 ml 240 ml 160 ml Output Total 1000 ml 1100 ml 950 ml 400 ml Balance 277 ml -1040 ml -710 ml -240 ml Intake Oral 120 ml 60 ml 240 ml 60 ml IV Total 1157 ml 100 ml Output Urine Total 1000 ml 1100 ml 950 ml 400 ml # Bowel Movements 0 0 0 Result Diagram: 05/04/17 0810 05/03/17 1300 Imaging Last Impressions Chest X-Ray 05/01/171910 Signed Impressions: Service Date/Time: Monday, May 01, 2017 19:43 - CONCLUSION: Normal examination. Dallas Pearce MD Objective Remarks GENERAL: Lethargic appears older than stated age did not answer any questions at this time CARDIOVASCULAR: Regular rate and rhythm. S1 and S2 no S3 or S4 RESPIRATORY: No accessory muscle use. Clear to auscultation. Breath sounds equal bilaterally. GASTROINTESTINAL: Abdomen soft, non-tender, nondistended. Hepatic and splenic margins not palpable. Dubon catheter in place MUSCULOSKELETAL: Extremities without clubbing, cyanosis, or edema. No obvious deformities. NEUROLOGICAL: Not Awake and alert. No obvious cranial nerve deficits. Motor grossly within normal limits. 4 out of 5 muscle strength in the arms and legs. ABNormal speech. PSYCHIATRIC: Lethargic. Poor insight and judgement. A/P Problem List: (1) Sepsis ICD Code: A41.9 - Sepsis, unspecified organism (2) UTI (urinary tract infection) ICD Code: N39.0 - Urinary tract infection, site not specified (3) CHF (congestive heart failure) ICD Code: I50.9 - Heart failure, unspecified (4) Urinary retention ICD Code: R33.9 - Retention of urine, unspecified Status: Acute (5) CARLEE (acute kidney injury) ICD Code: N17.9 - Acute kidney failure, unspecified Status: Resolved (6) HTN (hypertension) ICD Code: I10 - Essential (primary) hypertension (7) DM (diabetes mellitus) ICD Code: E11.9 - Type 2 diabetes mellitus without complications Assessment and Plan 1. Sepsis: Temp 100.6, HR 118. Lactic Acid 4.9, Source-UTI. S/p Blood/Urine cultures, IV Vanc/Zosyn in ER. Follow up cultures, repeat Lactic Acid, continue IV Abx. 2. UTI: U/a w/ UTI, continue w/ IV Abx as above. Follow up cultures. 3. Urinary Retention: h/o BPH, noted to have urinary retention/suprapubic distention at [facility], Dubon placement unsuccessful and sent to ER. Dubon place in ER without difficulty, 2L urine output after placement. IVF for replace fluid loss-caution w/ h/o CHF. Resume home Flomax, continue w/ IV Abx for UTI. 4. CARLEE: Creatinine 2.30, previously 1.23 04/13/17. Treatment as above. IVF for hydration, caution with CHF. The labs in a.m. TRY D5NS WITH 20KCL AT 100ML/ HR 5. HTN: BP 180's on arrival, likely compounded by discomfort from abdominal distention/retention. BP currently 121/74, HR 93. Will monitor. 6. DM: Sliding scale w/ Accu-Cheks. 7. Poor PO intake, protein calorie malnutrition. Will add ensure. Consult dietary do calorie count DVT Prophylaxis: SCD/Teds. Social work for d/c planning as needed. Will need physical therapy and occupational therapy May need soft mittens without restraints Code status: DNR Discharge Planning Pending improvement will need to go back to SNF at discharge also palliative care following. Poss DC to SNF with [facility] patient /family deciding. Mary Younger MD May 04, 2017 08:26
[2017-05-04 08:57] LABS: ANION GAP 8 MEQ/L (5-15); AST (GOT) 12 U/L (15-37); BICARBONATE 27.3 MEQ/L (21.0-32.0); BLOOD UREA NITROGEN 14 MG/DL (7-18); CHLORIDE 104 MEQ/L (98-107); GLOMERULAR FILTRATION RATE 61 ML/MIN (>89); MAGNESIUM 1.8 MG/DL (1.5-2.5); POTASSIUM 4.1 MEQ/L (3.5-5.1); SODIUM (NA) 139 MEQ/L (136-145)
[2017-05-04] MEDS: SODIUM CHLORIDE 0.9% FLUSH 10 ML FLUSH IV FLUSH SCH ×2 (09:00→21:06)
[2017-05-04 09:10] LABS: ALKALINE PHOSPHATASE 69 U/L (45-117); ALT (GPT) 12 U/L (12-78); FREE T4 1.31 NG/DL (0.76-1.46); TOTAL BILIRUBIN ADULT 0.5 MG/DL (0.2-1.0)
[2017-05-04 10:02] LABS: HEMOGLOBIN A1a 1.5 %; HEMOGLOBIN A1b 2.1 %; HEMOGLOBIN Ao 81.8 %; HEMOGLOBIN LA1C 2.3 %; HEMOGLOBIN P3 4.3 %
[2017-05-04] MEDS: D5-NS + KCL 20 MEQ INJ 1,000 ML IV SCH ×2 (10:16→17:45)
[2017-05-04] MEDS: SERTRALINE HCL 50 MG TAB PO SCH (10:16)
[2017-05-04] MEDS: FUROSEMIDE 20 MG TAB PO SCH (10:16)
[2017-05-04] MEDS: SPIRONOLACTONE 25 MG TAB PO SCH (10:17)
[2017-05-04] MEDS: DOCUSATE SODIUM 50 MG/SENNA 8.6 MG TAB PO SCH ×2 (10:17→21:05)
[2017-05-04] MEDS: cloNIDine HCL 0.1 MG TAB PO SCH ×2 (10:17→21:05)
[2017-05-04] MEDS: QUEtiapine FUMARATE 25 MG TAB PO SCH (10:17)
[2017-05-04] MEDS: amLODIPine BESYLATE 5 MG TAB PO SCH (10:17)
[2017-05-04] MEDS: INSULIN ASPART SUPPLEMENTAL SCALE SQ SCH ×4 (10:18→21:00)
[2017-05-04 12:00] VITALS: BP 143/86; PULSE 64; RESP 17; TEMP 96.1; O2SAT 96
--- NOTE | 2017-05-04 15:29 | HHI.HCPN ---
Reason for visit a. To assist with evaluation and management of symptoms including: b. To assist medical decision maker(s) with: better understanding of current medical conditions; weighing benefits/burdens of medical treatment options; making medical treatment decisions. Subjective/Interval History Patient seen today to follow-up on comfort, goals. Before my arrival to unit received a call from Mariann. She indicates she has spoken to his facility as well as acquaintances in the community and requests [facility] consultation to evaluate to provide services at patient known nursing facility [facility]. Review with her condition, the patient is not currently end-stage however he is likely to experience infections, decline related to progressive dementia especially if he continues to not eat, she is clear that he would not want a feeding tube. Urine positive for shyanne- tx to be initiated per medical attending. Calorie count also started and may add appetite stimulant.Pt had been refusing PO, however review of documentation this afternoon, pt ate most of lunch items. Patient later seen in room no visitors present. He is lethargic when I arouse him he was more flat today than my interaction yesterday. He answers some yes and no questions though does not really verbalize further or elaborate. He follows some simple commands. He does not appear to be in pain or any sort of discomfort though he does not answer my questions to that. Discuss with medical attending Dr. Younger, as well as hospice senior network security architect. . Advance Directives Living Will: Never completed Health Care Surrogate: Never completed Durable Power of Piece Presser: Never completed Objective Vital Signs Date Time Temp Pulse Resp B/P (MAP) Pulse Ox O2 Delivery O2 Flow Rate FiO2 05/04/17 12:00 96.1 64 17 143/86 (105) 96 05/04/17 07:47 96.7 75 19 172/76 (108) 98 05/04/17 04:09 96.9 74 17 157/74 (101) 98 05/04/17 00:18 96.7 68 18 155/85 (108) 96 05/03/17 20:45 96.4 72 18 183/98 (126) 96 05/03/17 20:00 86 05/03/17 16:00 97.7 77 18 138/60 (86) 97 Intake & Output 05/04/17 05/04/17 07:00 19:00 Intake Total 400 ml Output Total 1350 ml Balance -950 ml Intake Oral 300 ml IV Total 100 ml Output Urine Total 1350 ml # Bowel Movements 0 Physical Exam CONSTITUTIONAL/GENERAL: This is a thin, elderly male. No distress. TUBES/LINES/DRAINS: Peripheral IV left upper extremity, Dubon catheter SKIN: No jaundice, rashes, or lesions. No wounds seen anteriorly. Skin warm and dry. CARDIOVASCULAR: Regular without murmur. Peripheral pulses symmetric. RESPIRATORY/CHEST: Symmetric, unlabored respirations. On room air. Clear to auscultation. Breath sounds equal bilaterally. GASTROINTESTINAL: Abdomen soft, flat, non-tender, nondistended. No hepato- splenomegaly, or palpable masses. No guarding. Bowel sounds normoactive. GENITOURINARY: Without palpable bladder distension. Dubon catheter in place.clear yellow urine MUSCULOSKELETAL: Extremities without clubbing, cyanosis, or edema. No joint tenderness or effusion noted. extremities with muscle wasting. No mottling or clubbing. NEUROLOGICAL: More lethargic today. Arouses some to exam. Flat affect. Answers some yes and no questions but does not further verbalize. Follows some simple commands but not all. Moving all 4 extremities. PSYCHIATRIC: No obvious anxiety/depression. no apparent hallucinations or other psychotic thought process. Flat affect today. Diagnostic Tests Laboratory Laboratory Tests Test 05/01/17 19:25 05/01/17 20:00 05/01/17 22:50 05/02/17 00:50 White Blood Count 9.2 TH/MM3 (4.0-11.0) Red Blood Count 4.09 MIL/MM3 (4.50-5.90) Hemoglobin 12.4 GM/DL (13.0-17.0) Hematocrit 36.4 % (39.0-51.0) Mean Corpuscular Volume 89.0 FL (80.0-100.0) Mean Corpuscular Hemoglobin 30.3 PG (27.0-34.0) Mean Corpuscular Hemoglobin Concent 34.1 % (32.0-36.0) Red Cell Distribution Width 13.7 % (11.6-17.2) Platelet Count 171 TH/MM3 (150-450) Mean Platelet Volume 9.3 FL (7.0-11.0) Neutrophils (%) (Auto) 89.2 % (16.0-70.0) Lymphocytes (%) (Auto) 3.7 % (9.0-44.0) Monocytes (%) (Auto) 6.9 % (0.0-8.0) Eosinophils (%) (Auto) 0.0 % (0.0-4.0) Basophils (%) (Auto) 0.2 % (0.0-2.0) Neutrophils # (Auto) 8.2 TH/MM3 (1.8-7.7) Lymphocytes # (Auto) 0.3 TH/MM3 (1.0-4.8) Monocytes # (Auto) 0.6 TH/MM3 (0-0.9) Eosinophils # (Auto) 0.0 TH/MM3 (0-0.4) Basophils # (Auto) 0.0 TH/MM3 (0-0.2) CBC Comment DIFF FINAL Differential Comment Prothrombin Time 11.1 SEC (9.8-11.6) Prothromb Time International Ratio 1.1 RATIO Activated Partial Thromboplast Time 21.7 SEC (24.3-30.1) Blood Urea Nitrogen 33 MG/DL (7-18) Creatinine 2.30 MG/DL (0.60-1.30) Random Glucose 617 MG/DL (74-106) Total Protein 7.1 GM/DL (6.4-8.2) Albumin 3.4 GM/DL (3.4-5.0) Calcium Level 8.9 MG/DL (8.5-10.1) Magnesium Level 1.8 MG/DL (1.5-2.5) Alkaline Phosphatase 93 U/L (45-117) Aspartate Amino Transf (AST/SGOT) 14 U/L (15-37) Alanine Aminotransferase (ALT/SGPT) 16 U/L (12-78) Total Bilirubin 0.7 MG/DL (0.2-1.0) Sodium Level 135 MEQ/L (136-145) Potassium Level 4.6 MEQ/L (3.5-5.1) Chloride Level 99 MEQ/L (98-107) Carbon Dioxide Level 22.4 MEQ/L (21.0-32.0) Anion Gap 14 MEQ/L (5-15) Estimat Glomerular Filtration Rate 28 ML/MIN (>89) Lactic Acid Level 4.9 mmol/L (0.4-2.0) 4.5 mmol/L (0.4-2.0) 3.4 mmol/L (0.4-2.0) B-Hydroxybutyrate 0.18 MMOL/L (0.00-0.39) Urine Color YELLOW (YELLW/STRAW) Urine Turbidity HAZY (CLEAR) Urine pH 6.0 (5.0-8.5) Urine Specific [place]negard 1.014 (1.002-1.035) Urine Protein 30 mg/dL (NEG-TRACE) Urine Glucose (UA) 1000 mg/dL (NEG) Urine Ketones NEG mg/dL (NEG) Urine Occult Blood MOD (NEG) Urine Nitrite NEG (NEG) Urine Bilirubin NEG (NEG) Urine Urobilinogen LESS THAN 2.0 MG/DL (LESS Urine Leukocyte Esterase LARGE (NEG) Urine RBC 30 /hpf (0-3) Urine WBC /hpf (0-5) Urine Yeast (Budding) MANY (NONE) Microscopic Urinalysis Comment CATH-CULTURE IND Test 05/02/17 04:56 05/03/17 13:00 05/04/17 08:10 White Blood Count 7.0 TH/MM3 (4.0-11.0) 6.8 TH/MM3 (4.0-11.0) 5.5 TH/MM3 (4.0-11.0) Red Blood Count 3.50 MIL/MM3 (4.50-5.90) 3.40 MIL/MM3 (4.50-5.90) 3.91 MIL/MM3 (4.50-5.90) Hemoglobin 10.9 GM/DL (13.0-17.0) 10.6 GM/DL (13.0-17.0) 12.2 GM/DL (13.0-17.0) Hematocrit 30.5 % (39.0-51.0) 29.7 % (39.0-51.0) 34.4 % (39.0-51.0) Mean Corpuscular Volume 87.2 FL (80.0-100.0) 87.4 FL (80.0-100.0) 87.8 FL (80.0-100.0) Mean Corpuscular Hemoglobin 31.2 PG (27.0-34.0) 31.3 PG (27.0-34.0) 31.1 PG (27.0-34.0) Mean Corpuscular Hemoglobin Concent 35.7 % (32.0-36.0) 35.7 % (32.0-36.0) 35.4 % (32.0-36.0) Red Cell Distribution Width 13.9 % (11.6-17.2) 13.3 % (11.6-17.2) 13.7 % (11.6-17.2) Platelet Count 157 TH/MM3 (150-450) 167 TH/MM3 (150-450) 189 TH/MM3 (150-450) Mean Platelet Volume 9.0 FL (7.0-11.0) 9.0 FL (7.0-11.0) 8.7 FL (7.0-11.0) Neutrophils (%) (Auto) 65.6 % (16.0-70.0) 78.3 % (16.0-70.0) 71.0 % (16.0-70.0) Lymphocytes (%) (Auto) 17.2 % (9.0-44.0) 12.8 % (9.0-44.0) 16.6 % (9.0-44.0) Monocytes (%) (Auto) 14.2 % (0.0-8.0) 7.6 % (0.0-8.0) 8.0 % (0.0-8.0) Eosinophils (%) (Auto) 2.6 % (0.0-4.0) 0.9 % (0.0-4.0) 3.7 % (0.0-4.0) Basophils (%) (Auto) 0.4 % (0.0-2.0) 0.4 % (0.0-2.0) 0.7 % (0.0-2.0) Neutrophils # (Auto) 4.6 TH/MM3 (1.8-7.7) 5.3 TH/MM3 (1.8-7.7) 3.9 TH/MM3 (1.8-7.7) Lymphocytes # (Auto) 1.2 TH/MM3 (1.0-4.8) 0.9 TH/MM3 (1.0-4.8) 0.9 TH/MM3 (1.0-4.8) Monocytes # (Auto) 1.0 TH/MM3 (0-0.9) 0.5 TH/MM3 (0-0.9) 0.4 TH/MM3 (0-0.9) Eosinophils # (Auto) 0.2 TH/MM3 (0-0.4) 0.1 TH/MM3 (0-0.4) 0.2 TH/MM3 (0-0.4) Basophils # (Auto) 0.0 TH/MM3 (0-0.2) 0.0 TH/MM3 (0-0.2) 0.0 TH/MM3 (0-0.2) CBC Comment DIFF FINAL DIFF FINAL DIFF FINAL Differential Comment Blood Urea Nitrogen 26 MG/DL (7-18) 15 MG/DL (7-18) 14 MG/DL (7-18) Creatinine 1.52 MG/DL (0.60-1.30) 1.08 MG/DL (0.60-1.30) 1.16 MG/DL (0.60-1.30) Random Glucose 76 MG/DL (74-106) 149 MG/DL (74-106) 148 MG/DL (74-106) Total Protein 5.8 GM/DL (6.4-8.2) 5.6 GM/DL (6.4-8.2) 6.5 GM/DL (6.4-8.2) Albumin 2.7 GM/DL (3.4-5.0) 2.5 GM/DL (3.4-5.0) 2.9 GM/DL (3.4-5.0) Calcium Level 8.3 MG/DL (8.5-10.1) 8.4 MG/DL (8.5-10.1) 8.5 MG/DL (8.5-10.1) Alkaline Phosphatase 66 U/L (45-117) 58 U/L (45-117) 69 U/L (45-117) Aspartate Amino Transf (AST/SGOT) 12 U/L (15-37) 15 U/L (15-37) 12 U/L (15-37) Alanine Aminotransferase (ALT/SGPT) 14 U/L (12-78) 10 U/L (12-78) 12 U/L (12-78) Total Bilirubin 0.5 MG/DL (0.2-1.0) 0.4 MG/DL (0.2-1.0) 0.5 MG/DL (0.2-1.0) Sodium Level 147 MEQ/L (136-145) 141 MEQ/L (136-145) 139 MEQ/L (136-145) Potassium Level 3.6 MEQ/L (3.5-5.1) 3.8 MEQ/L (3.5-5.1) 4.1 MEQ/L (3.5-5.1) Chloride Level 111 MEQ/L (98-107) 105 MEQ/L (98-107) 104 MEQ/L (98-107) Carbon Dioxide Level 28.4 MEQ/L (21.0-32.0) 24.8 MEQ/L (21.0-32.0) 27.3 MEQ/L (21.0-32.0) Anion Gap 8 MEQ/L (5-15) 11 MEQ/L (5-15) 8 MEQ/L (5-15) Estimat Glomerular Filtration Rate 44 ML/MIN (>89) 66 ML/MIN (>89) 61 ML/MIN (>89) Phosphorus Level 3.3 MG/DL (2.5-4.9) 2.8 MG/DL (2.5-4.9) Magnesium Level 1.6 MG/DL (1.5-2.5) 1.8 MG/DL (1.5-2.5) Hemoglobin A1c 7.7 % (4.3-6.0) 7.6 % (4.3-6.0) Free Thyroxine 1.10 NG/DL (0.76-1.46) 1.31 NG/DL (0.76-1.46) Thyroid Stimulating Hormone 3rd Gen 0.654 uIU/ML (0.358-3.740) 1.850 uIU/ML (0.358-3.740) Result Diagram: 05/04/17 0810 05/04/17 0810 Microbiology Microbiology Date/Time Source Procedure Growth Status 05/01/17 19:25 Blood Peripheral Aerobic Blood Culture - Preliminary NO GROWTH IN 3 DAYS Resulted 05/01/17 19:25 Blood Peripheral Anaerobic Blood Culture - Preliminary NO GROWTH IN 3 DAYS Resulted 05/01/17 19:25 Blood Peripheral Aerobic Blood Culture - Preliminary NO GROWTH IN 3 DAYS Resulted 05/01/17 19:25 Blood Peripheral Anaerobic Blood Culture - Preliminary NO GROWTH IN 3 DAYS Resulted 05/01/17 20:00 Urine Catheterized Urine Urine Culture - Final Shyanne Glabrata Complete Imaging Last Impressions Chest X-Ray 05/01/17 191 Signed Impressions: Service Date/Time: Monday, May 01, 2017 19:43 - CONCLUSION: Normal examination. Dallas Pearce MD Assessment and Plan Disease Oriented Problem List: (1) Dementia with behavioral disturbance (2) Diabetes mellitus (3) Hypertension (4) Urinary tract infection (5) BPH (benign prostatic hyperplasia) (6) Urinary retention (7) Septic shock (8) CARLEE (acute kidney injury) (9) CHF (congestive heart failure) Symptom Scale: (1) Encephalopathy 0-10 Scale: Unable to quantify (2) Malnutrition 0-10 Scale: Unable to quantify Pertinent Non-Medical Issues Psychosocial:Originally from [facility]. Has resided in [facility] since December of this year. Apparently has been on hospice with [facility] since July of this year per 03/2017 H&P. Per psychiatry note 03/2015: Patient born in [facility], served 2 years in the [employer]. Speaks multiple languages. Worked all of his life in the [employer] industry in [facility], [facility] and then came to the around 1959. Worked in [place], then came to [place] about 10 years ago. He is to his second and has a 15-year-old son at that time. Also noted to have 2 adult children from prior marriage. Spiritual: [employer] would like director of compliance visitation Legal:Due to dementia, clinical conditions patient is unable to participate in decision-making. Per [place] statutes his would be appropriate legal proxy. Ethical issues impacting care: Important Contacts spouse Graciee [phone] KENYETTA WOLFE -DAUGHTER [phone] ([place]) . Prognosis This patient was admitted for urinary retention, UTI. He had acute alteration of mental status, though baseline dementia and confusion is noted. He appears to be slowly improving during hospital course and is nearing baseline mental status. Given progressive nature of dementia, his advanced age and multiple medical comorbidities he does remain at risk for ongoing complications, setbacks and overall decline and recurrent hospitalizations. Appropriate for hospice if goals compatible. Code Status: Full Code Plan * Legal decision maker:Due to dementia, clinical conditions patient is unable to participate in decision-making. Per [place] statutes his would be appropriate legal proxy. * Goals: Met with at length via phone upon initial consultation 05/03/17. Review of patient underlying dementia she indicates he has had it for maybe 3-5 years though it's only gotten "bad "in the past several years. She understands it is a progressive disease, and elected hospice and had to move him to a [facility] earlier this year over the summer when she could no longer care for his behavioral/emotional issues secondary to the dementia. She is tearful at times she endorses that he would not want to suffer, and that she hates to see him suffered. Much review of dementia progression and expected trajectory. Much review of current clinical assessment. She advises that she would not proceed with any type of feeding tube based on patient known wishes. She does not feel he would want his life to be prolonged by any artificial measures especially not if they would induce additional suffering, which he does not have the ability to understand. She requests no feeding tubes. She thinks she would like to proceed with hospice enrollment again upon discharge--though she is not certain if she should proceed with [facility] hospice or consider another provider, she's not certain what his nursing facility will allow for different hospice services, she wishes to contact them first. 05/04/17- requests evaluation by [facility] for care at patient nursing facility. She does not want patient to have a feeding tube, does not want ongoing hospitalizations. * CODE STATUS: DNR * SYMPTOMS: --Encephalopathy/confusion-patient admitted for acute UTI, underlying dementia, likely multifactorial. appears close to baseline level of confusion , alertness some remote recall. --Poor appetite-patient with minimal oral intake refusing food, medications etc. during admission course, today actually ate most of his lunch which is the most he's eaten since been here. Could be secondary to more acute confusion related to UTI, or could be dementia progression; indicates patient would not want a feeding tube under any circumstances and she would elect comfort measures ; she requests [facility] be consulted. Calorie count in process , appetite stimulant to be added by medical attending. * Palliative care will continue to follow during hospital course as condition evolves, to assist patient/decision-maker with understanding of medical conditions, weighing benefits/burdens of treatment options, for clarification of goals of treatment. Additionally will assist with any symptoms of palliative concern Time Spent Total Floor Time (mins): 25 (Chart review, PE, discussion with family, discussion with medical attending) Attestation To help prompt me to consider important information that might be impacting today's encounter and assessment, information from prior notes written by myself or my colleagues may have been "brought forward" into today's note. My signature on this note, however, is an attestation that I personally performed the exam, history, and/or decision-making noted today, and, unless otherwise indicated, the interactions with patient, family, and staff as well as the review of records all occurred today. I also attest that the listed assessment and stated plan reflect my best clinical judgment today based on the combination of historical information, prior notes, and today's exam/ interactions. When time spent is documented, it refers only to time spent today by the signer, or if indicated, combined time spent today by collaborating physician/nurse practitioner. Aleena Call May 04, 2017 15:29
[2017-05-04 16:00] VITALS: BP 141/79; PULSE 69; RESP 18; TEMP 98.5; O2SAT 97
[2017-05-04 20:45] VITALS: BP 169/116; PULSE 86; RESP 18; TEMP 98.9; O2SAT 95
[2017-05-04] MEDS: INSULIN DETEMIR 100 UNITS/ML VIAL SQ SCH (21:00)
[2017-05-04] MEDS: TAMSULOSIN HCL 0.4 MG CAP PO SCH (21:05)
[2017-05-04] MEDS: cefTRIAXone INJ 1,000 MG in SODIUM CHLORIDE 0.9% INJ 100 ML IV SCH (23:54)
[2017-05-05] VITALS: PULSE 60
[2017-05-05 00:55] VITALS: BP 124/62; PULSE 68; RESP 18; TEMP 96.9; O2SAT 94
[2017-05-05 03:35] VITALS: BP 117/56; PULSE 51; RESP 18; TEMP 96.7; O2SAT 94
[2017-05-05] MEDS: D5-NS + KCL 20 MEQ INJ 1,000 ML IV SCH (03:45)
[2017-05-05 07:50] VITALS: BP 173/95; PULSE 82; RESP 18; TEMP 95.7; O2SAT 97
[2017-05-05] MEDS: INSULIN ASPART SUPPLEMENTAL SCALE SQ SCH ×2 (08:00→12:00)
[2017-05-05] MEDS: SODIUM CHLORIDE 0.9% FLUSH 10 ML FLUSH IV FLUSH SCH (09:00)
--- NOTE | 2017-05-05 09:03 | HHI.PR ---
Subjective Remarks Added razia junior. also family/patient is refusing PEG tube. No fever ro chills. No n/v/d/c. Will DC to SNF and hospice will follow at SNF. Objective Vitals Vital Signs Date Time Temp Pulse Resp B/P (MAP) Pulse Ox O2 Delivery O2 Flow Rate FiO2 05/05/17 03:35 96.7 51 18 117/56 (76) 94 05/05/17 00:55 96.9 68 18 124/62 (82) 94 05/05/17 00:00 60 05/04/17 20:45 98.9 86 18 169/116 (133) 95 05/04/17 20:00 Room Air 05/04/17 16:00 98.5 69 18 141/79 (99) 97 05/04/17 12:00 96.1 64 17 143/86 (105) 96 I/O 05/04/17 05/04/17 05/04/17 05/05/17 05/05/17 05/05/17 07:00 15:00 23:00 07:00 15:00 23:00 Intake Total 160 ml 600 ml 480 ml 1340 ml Output Total 400 ml 900 ml 550 ml 400 ml Balance -240 ml -300 ml -70 ml 940 ml Intake Oral 60 ml 600 ml 480 ml 240 ml IV Total 100 ml 1100 ml Output Urine Total 400 ml 900 ml 550 ml 400 ml # Bowel Movements 0 0 0 0 Result Diagram: 05/04/17 0810 05/04/17 0810 Imaging Last Impressions Chest X-Ray 05/01/17 191 Signed Impressions: Service Date/Time: Monday, May 01, 2017 19:43 - CONCLUSION: Normal examination. Dallas Pearce MD Objective Remarks GENERAL: Lethargic appears older than stated age did not answer any questions at this time CARDIOVASCULAR: Regular rate and rhythm. S1 and S2 no S3 or S4 RESPIRATORY: No accessory muscle use. Clear to auscultation. Breath sounds equal bilaterally. GASTROINTESTINAL: Abdomen soft, non-tender, nondistended. Hepatic and splenic margins not palpable. Dubon catheter in place MUSCULOSKELETAL: Extremities without clubbing, cyanosis, or edema. No obvious deformities. NEUROLOGICAL: Not Awake and alert. No obvious cranial nerve deficits. Motor grossly within normal limits. 4 out of 5 muscle strength in the arms and legs. ABNormal speech. PSYCHIATRIC: Lethargic. Poor insight and judgement. A/P Problem List: (1) Sepsis ICD Code: A41.9 - Sepsis, unspecified organism (2) UTI (urinary tract infection) ICD Code: N39.0 - Urinary tract infection, site not specified (3) CHF (congestive heart failure) ICD Code: I50.9 - Heart failure, unspecified (4) Urinary retention ICD Code: R33.9 - Retention of urine, unspecified Status: Acute (5) CARLEE (acute kidney injury) ICD Code: N17.9 - Acute kidney failure, unspecified Status: Resolved (6) HTN (hypertension) ICD Code: I10 - Essential (primary) hypertension (7) DM (diabetes mellitus) ICD Code: E11.9 - Type 2 diabetes mellitus without complications Assessment and Plan 1. Sepsis: Temp 100.6, HR 118. Lactic Acid 4.9, Source-UTI. S/p Blood/Urine cultures, IV Vanc/Zosyn in ER. Follow up cultures, repeat Lactic Acid, continue IV Abx. Blood cx negative. Urine cultures with shyanne. Start fluconazole. DC abx 2. UTI: U/a w/ UTI, shyanne as above 3. Urinary Retention: h/o BPH, noted to have urinary retention/suprapubic distention at , Dubon placement unsuccessful and sent to ER. Dubon place in ER without difficulty, 2L urine output after placement. IVF for replace fluid loss-caution w/ h/o CHF. Resume home Flomax, continue w/ IV Abx for UTI. 4. CARLEE: Creatinine 2.30, previously 1.23 04/13/17. Treatment as above. IVF for hydration, caution with CHF. The labs in a.m. TRY D5NS WITH 20KCL AT 100ML/ HR 5. HTN: BP 180's on arrival, likely compounded by discomfort from abdominal distention/retention. BP currently 121/74, HR 93. Will monitor. 6. DM: Sliding scale w/ Accu-Cheks. 7. Poor PO intake, protein calorie malnutrition. Add ensure. Consult dietary do calorie count. However patient is refusing to eat. Added megace. Patient not eating much, also family/patient is refusing PEG tube. Will DC to SNF and hospice will follow at SNF. Eating better. DVT Prophylaxis: SCD/Teds. Social work for d/c planning as needed. Will need physical therapy and occupational therapy May need soft mittens without restraints Code status: DNR Discharge Planning DC to SNF and hospice will follow at SNF. Mary Younger MD May 05, 2017 09:03
[2017-05-05] MEDS: amLODIPine BESYLATE 5 MG TAB PO SCH (09:31)
[2017-05-05] MEDS: DOCUSATE SODIUM 50 MG/SENNA 8.6 MG TAB PO SCH (09:31)
[2017-05-05] MEDS: FUROSEMIDE 20 MG TAB PO SCH (09:31)
[2017-05-05] MEDS: QUEtiapine FUMARATE 25 MG TAB PO SCH (09:31)
[2017-05-05] MEDS: SPIRONOLACTONE 25 MG TAB PO SCH (09:32)
[2017-05-05] MEDS: SERTRALINE HCL 50 MG TAB PO SCH (09:32)
[2017-05-05] MEDS: cloNIDine HCL 0.1 MG TAB PO SCH (09:32)
[2017-05-05] MEDS ORDERED: MEGESTROL ACETATE SUSP 400 MG/10 ML CUP PO SCH (10:00)
[2017-05-05] MEDS ORDERED: ALPR.5 PO (11:30)
[2017-05-05] MEDS ORDERED: Megestrol Liq PO (11:30)
[2017-05-05] MEDS ORDERED: PERI PO (11:30)
--- NOTE | 2017-05-05 11:31 | HHI.DS ---
Discharge Summary Admission Date May 01, 2017 at 21:31 Discharge Date: May 05, 2017 Admitting Diagnosis SEPSIS/UTI/HYPERGLYCEMIA (1) Sepsis ICD Code: A41.9 - Sepsis, unspecified organism (2) UTI (urinary tract infection) ICD Code: N39.0 - Urinary tract infection, site not specified (3) CHF (congestive heart failure) ICD Code: I50.9 - Heart failure, unspecified (4) Urinary retention ICD Code: R33.9 - Retention of urine, unspecified Status: Acute (5) CARLEE (acute kidney injury) ICD Code: N17.9 - Acute kidney failure, unspecified Status: Resolved (6) HTN (hypertension) ICD Code: I10 - Essential (primary) hypertension (7) DM (diabetes mellitus) ICD Code: E11.9 - Type 2 diabetes mellitus without complications Procedures none Brief History - From Admission This is a 81-year-old male with a PMH of Anxiety, Depression, HTN, Hyperlipidemia, BPH, CHF (Echo 04/08/17 w/ EF 25-30%) and DM who was sent to the ER from SNF secondary to urinary retention. Patient unable to provide any history at this time. Per report, Dubon placement attempted at SNF, however unsuccessful at which time patient was sent to the ER. On arrival, BP 182/109, HR 118, O2 sat 97% on 2L NC, Temp 100.6. CBC unremarkable except for elevated neutrophil count. Creatinine 2.30, previously 1.23 on 04/13/17. BS 617. Lactic Acid 4.9. U/a w/ UTI. S/p Dubon placement in ER w/ 2L urine output. S/ p Zosyn in ER. CBC/BMP: 05/04/17 0810 05/04/17 0810 Significant Findings Laboratory Tests Test 05/03/17 13:00 05/04/17 08:10 Red Blood Count 3.40 MIL/MM3 (4.50-5.90) 3.91 MIL/MM3 (4.50-5.90) Hemoglobin 10.6 GM/DL (13.0-17.0) 12.2 GM/DL (13.0-17.0) Hematocrit 29.7 % (39.0-51.0) 34.4 % (39.0-51.0) Neutrophils (%) (Auto) 78.3 % (16.0-70.0) 71.0 % (16.0-70.0) Lymphocytes # (Auto) 0.9 TH/MM3 (1.0-4.8) 0.9 TH/MM3 (1.0-4.8) Random Glucose 149 MG/DL (74-106) 148 MG/DL (74-106) Total Protein 5.6 GM/DL (6.4-8.2) Albumin 2.5 GM/DL (3.4-5.0) 2.9 GM/DL (3.4-5.0) Calcium Level 8.4 MG/DL (8.5-10.1) Alanine Aminotransferase (ALT/SGPT) 10 U/L (12-78) Estimat Glomerular Filtration Rate 66 ML/MIN (>89) 61 ML/MIN (>89) Hemoglobin A1c 7.7 % (4.3-6.0) 7.6 % (4.3-6.0) Aspartate Amino Transf (AST/SGOT) 12 U/L (15-37) PE at Discharge GENERAL: Lethargic appears older than stated age did not answer any questions at this time CARDIOVASCULAR: Regular rate and rhythm. S1 and S2 no S3 or S4 RESPIRATORY: No accessory muscle use. Clear to auscultation. Breath sounds equal bilaterally. GASTROINTESTINAL: Abdomen soft, non-tender, nondistended. Hepatic and splenic margins not palpable. Dubon catheter in place MUSCULOSKELETAL: Extremities without clubbing, cyanosis, or edema. No obvious deformities. NEUROLOGICAL: Not Awake and alert. No obvious cranial nerve deficits. Motor grossly within normal limits. 4 out of 5 muscle strength in the arms and legs. ABNormal speech. PSYCHIATRIC: Lethargic. Poor insight and judgement. Hospital Course 1. Sepsis: Temp 100.6, HR 118. Lactic Acid 4.9, Source-UTI. S/p Blood/Urine cultures, IV Vanc/Zosyn in ER. Follow up cultures, repeat Lactic Acid, continue IV Abx. Blood cx negative. Urine cultures with shyanne. Start fluconazole. DC abx 2. UTI: U/a w/ UTI, shyanne as above 3. Urinary Retention: h/o BPH, noted to have urinary retention/suprapubic distention at SNF, Dubon placement unsuccessful and sent to ER. Dubon place in ER without difficulty, 2L urine output after placement. IVF for replace fluid loss-caution w/ h/o CHF. Resume home Flomax, continue w/ IV Abx for UTI. 4. CARLEE: Creatinine 2.30, previously 1.23 04/13/17. Treatment as above. IVF for hydration, caution with CHF. The labs in a.m. TRY D5NS WITH 20KCL AT 100ML/ HR 5. HTN: BP 180's on arrival, likely compounded by discomfort from abdominal distention/retention. BP currently 121/74, HR 93. Will monitor. 6. DM: Sliding scale w/ Accu-Cheks. 7. Poor PO intake, protein calorie malnutrition. Add ensure. Consult dietary do calorie count. However patient is refusing to eat. Added megace. Patient not eating much, also family/patient is refusing PEG tube. Will DC to SNF and hospice will follow at SNF. Eating better. DVT Prophylaxis: SCD/Teds. Social work for d/c planning as needed. Will need physical therapy and occupational therapy May need soft mittens without restraints Code status: DNR Discharge Planning DC to SNF and hospice will follow at SNF. Pt Condition on Discharge: Stable Discharge Disposition: Discharge to SNF Discharge Time: > 30 minutes Discharge Instructions DIET: Follow Instructions for: As Tolerated, No Restrictions Activities you can perform: Regular-No Restrictions Follow up Referrals: PCP Follow-up - 2-3 Days New Medications: Fluconazole (Fluconazole) 100 Mg Tab 100 MG PO DAILY for Infection, #3 TAB 0 Refills Megestrol ES Liq (Megace ES Liq) 625 Mg/5 Ml Susp 625 MG PO DAILY for Improve Appetite, #240 ML 0 Refills Sennosides-Docusate Sodium (Gnp Senna Plus 8.6-50 mg) 8.6 Mg-50 Mg Tab 1 TAB PO BID for Constipation, #60 TAB Continued Medications: Alprazolam (Xanax) 0.5 Mg Tab 0.5 MG PO Q6H PRN for ANXIETY, #30 TAB 0 Refills (This prescription has been renewed) Amlodipine (Amlodipine) 5 Mg Tab 5 MG PO DAILY for Blood Pressure Management, #30 TAB 0 Refills Clonidine (Clonidine) 0.1 Mg Tab 0.1 MG PO BID for Blood Pressure Management, #60 TAB 0 Refills Furosemide (Lasix) 20 Mg Tab 20 MG PO DAILY, #30 TAB 0 Refills Lisinopril (Lisinopril) 10 Mg Tab 10 MG PO DAILY, #30 TAB 0 Refills Metformin (Metformin) 1,000 Mg Tab 1000 MG PO BIDPC for Blood Sugar Management, #60 TAB 0 Refills With meals Quetiapine (Seroquel) 25 Mg Tab 25 MG PO DAILY, #30 TAB 0 Refills Sertraline (Zoloft) 50 Mg Tab 25 MG PO DAILY, #30 TAB 0 Refills Spironolactone (Aldactone) 25 Mg Tab 25 MG PO DAILY, #30 TAB 0 Refills Tamsulosin (Tamsulosin) 0.4 Mg Cap 0.4 MG PO HS for Manage Prostate Problems, #30 CAP 0 Refills Zolpidem (Ambien) 10 Mg Tab 10 MG PO HS PRN for INSOMNIA, TAB 0 Refills Discontinued Medications: Ceftriaxone Inj (Ceftriaxone Inj) 1 Gm/50 Ml Bagp 1 GM IV Q24H for Infection, BAG 0 Refills Mary Younger MD May 05, 2017 11:31
[2017-05-05] MEDS ORDERED: MEGASUS2 PO (11:34)
[2017-05-05 11:44] VITALS: BP 137/78; PULSE 76; RESP 18; TEMP 95.5; O2SAT 96
--- NOTE | 2017-05-05 11:54 | HHI.HCPN ---
Reason for visit a. To assist with evaluation and management of symptoms including: b. To assist medical decision maker(s) with: better understanding of current medical conditions; weighing benefits/burdens of medical treatment options; making medical treatment decisions. Subjective/Interval History Patient seen today to follow-up on comfort, goals. Received a call from before my arrival to the unit to see patient, requests update, she also inquires if processing assistant has been in yet. Pt stable, no new labs or imaging. Discharge planning in process for DC back to SNF/long-term care facility. Discussed with hospital admissions patient to meet with hospice sometime on Tuesday for possible admission. Discuss with medical attending Dr. Younger. Discuss with hospital back pad inspector, was in yesterday to see patient. Patient seen in room nurse present. He is awake, oriented to self. Otherwise confused. More alert today, following simple commands. Denies pain. No apparent distress. Review of calorie count documents patient a 75-100% of meal items yesterday. Will call back to update on my assessment/processing assistant visitation. . Advance Directives Living Will: Never completed Health Care Surrogate: Never completed Durable Power of Mold Finisher: Never completed Objective Vital Signs Date Time Temp Pulse Resp B/P (MAP) Pulse Ox O2 Delivery O2 Flow Rate FiO2 05/05/17 07:50 95.7 82 18 173/95 (121) 97 05/05/17 03:35 96.7 51 18 117/56 (76) 94 05/05/17 00:55 96.9 68 18 124/62 (82) 94 05/05/17 00:00 60 05/04/17 20:45 98.9 86 18 169/116 (133) 95 05/04/17 20:00 Room Air 05/04/17 16:00 98.5 69 18 141/79 (99) 97 05/04/17 12:00 96.1 64 17 143/86 (105) 96 Intake & Output 05/05/17 05/05/17 07:00 19:00 Intake Total 1820 ml Output Total 950 ml Balance 870 ml Intake Oral 720 ml IV Total 1100 ml Output Urine Total 950 ml # Bowel Movements 0 Physical Exam CONSTITUTIONAL/GENERAL: This is a thin, elderly male. No distress. TUBES/LINES/DRAINS: Peripheral IV lt upper extremity, Dubon catheter CARDIOVASCULAR: Regular without murmur. Peripheral pulses symmetric. RESPIRATORY/CHEST: Symmetric, unlabored respirations. On room air. Clear to auscultation. Breath sounds equal bilaterally. GASTROINTESTINAL: Abdomen soft, flat, non-tender, nondistended. Bowel sounds normoactive. GENITOURINARY: Without palpable bladder distension. Dubon catheter in place. MUSCULOSKELETAL: Extremities without clubbing, cyanosis, or edema. No joint tenderness or effusion noted. extremities with muscle wasting. No mottling or clubbing. NEUROLOGICAL: Awake and alert-oriented to self, otherwise confused to current and recent situation. Baseline confusion. Answer some yes and no questions appropriately but for the most part confused. Follows simple commands. Moving all 4 extremities. PSYCHIATRIC: No obvious anxiety/depression. no apparent hallucinations or other psychotic thought process. Diagnostic Tests Laboratory Laboratory Tests Test 05/03/17 13:00 05/04/17 08:10 White Blood Count 6.8 TH/MM3 (4.0-11.0) 5.5 TH/MM3 (4.0-11.0) Red Blood Count 3.40 MIL/MM3 (4.50-5.90) 3.91 MIL/MM3 (4.50-5.90) Hemoglobin 10.6 GM/DL (13.0-17.0) 12.2 GM/DL (13.0-17.0) Hematocrit 29.7 % (39.0-51.0) 34.4 % (39.0-51.0) Mean Corpuscular Volume 87.4 FL (80.0-100.0) 87.8 FL (80.0-100.0) Mean Corpuscular Hemoglobin 31.3 PG (27.0-34.0) 31.1 PG (27.0-34.0) Mean Corpuscular Hemoglobin Concent 35.7 % (32.0-36.0) 35.4 % (32.0-36.0) Red Cell Distribution Width 13.3 % (11.6-17.2) 13.7 % (11.6-17.2) Platelet Count 167 TH/MM3 (150-450) 189 TH/MM3 (150-450) Mean Platelet Volume 9.0 FL (7.0-11.0) 8.7 FL (7.0-11.0) Neutrophils (%) (Auto) 78.3 % (16.0-70.0) 71.0 % (16.0-70.0) Lymphocytes (%) (Auto) 12.8 % (9.0-44.0) 16.6 % (9.0-44.0) Monocytes (%) (Auto) 7.6 % (0.0-8.0) 8.0 % (0.0-8.0) Eosinophils (%) (Auto) 0.9 % (0.0-4.0) 3.7 % (0.0-4.0) Basophils (%) (Auto) 0.4 % (0.0-2.0) 0.7 % (0.0-2.0) Neutrophils # (Auto) 5.3 TH/MM3 (1.8-7.7) 3.9 TH/MM3 (1.8-7.7) Lymphocytes # (Auto) 0.9 TH/MM3 (1.0-4.8) 0.9 TH/MM3 (1.0-4.8) Monocytes # (Auto) 0.5 TH/MM3 (0-0.9) 0.4 TH/MM3 (0-0.9) Eosinophils # (Auto) 0.1 TH/MM3 (0-0.4) 0.2 TH/MM3 (0-0.4) Basophils # (Auto) 0.0 TH/MM3 (0-0.2) 0.0 TH/MM3 (0-0.2) CBC Comment DIFF FINAL DIFF FINAL Differential Comment Blood Urea Nitrogen 15 MG/DL (7-18) 14 MG/DL (7-18) Creatinine 1.08 MG/DL (0.60-1.30) 1.16 MG/DL (0.60-1.30) Random Glucose 149 MG/DL (74-106) 148 MG/DL (74-106) Total Protein 5.6 GM/DL (6.4-8.2) 6.5 GM/DL (6.4-8.2) Albumin 2.5 GM/DL (3.4-5.0) 2.9 GM/DL (3.4-5.0) Calcium Level 8.4 MG/DL (8.5-10.1) 8.5 MG/DL (8.5-10.1) Phosphorus Level 3.3 MG/DL (2.5-4.9) 2.8 MG/DL (2.5-4.9) Magnesium Level 1.6 MG/DL (1.5-2.5) 1.8 MG/DL (1.5-2.5) Alkaline Phosphatase 58 U/L (45-117) 69 U/L (45-117) Aspartate Amino Transf (AST/SGOT) 15 U/L (15-37) 12 U/L (15-37) Alanine Aminotransferase (ALT/SGPT) 10 U/L (12-78) 12 U/L (12-78) Total Bilirubin 0.4 MG/DL (0.2-1.0) 0.5 MG/DL (0.2-1.0) Sodium Level 141 MEQ/L (136-145) 139 MEQ/L (136-145) Potassium Level 3.8 MEQ/L (3.5-5.1) 4.1 MEQ/L (3.5-5.1) Chloride Level 105 MEQ/L (98-107) 104 MEQ/L (98-107) Carbon Dioxide Level 24.8 MEQ/L (21.0-32.0) 27.3 MEQ/L (21.0-32.0) Anion Gap 11 MEQ/L (5-15) 8 MEQ/L (5-15) Estimat Glomerular Filtration Rate 66 ML/MIN (>89) 61 ML/MIN (>89) Hemoglobin A1c 7.7 % (4.3-6.0) 7.6 % (4.3-6.0) Free Thyroxine 1.10 NG/DL (0.76-1.46) 1.31 NG/DL (0.76-1.46) Thyroid Stimulating Hormone 3rd Gen 0.654 uIU/ML (0.358-3.740) 1.850 uIU/ML (0.358-3.740) Result Diagram: 05/04/1710 05/04/17 0810 Imaging Last Impressions Chest X-Ray 05/01/17 1911 Signed Impressions: Service Date/Time: Monday, May 01, 2017 19:43 - CONCLUSION: Normal examination. Dallas Pearce MD Assessment and Plan Disease Oriented Problem List: (1) Dementia with behavioral disturbance (2) Diabetes mellitus (3) Hypertension (4) Urinary tract infection (5) BPH (benign prostatic hyperplasia) (6) Urinary retention (7) Septic shock (8) CARLEE (acute kidney injury) (9) CHF (congestive heart failure) Symptom Scale: (1) Encephalopathy 0-10 Scale: Unable to quantify (2) Malnutrition 0-10 Scale: Unable to quantify Pertinent Non-Medical Issues Psychosocial:Originally from [facility]. Has resided in [facility] since December of this year. Apparently has been on hospice with [facility] since July of this year per 03/2017 H&P. Per psychiatry note 03/2015: Patient born in [place] [facility] [place], served 2 years in the [employer]. Speaks multiple languages. Worked all of his life in the [employer] industry in [place], [facility] and then came to the around 1960. Worked in [place], then came to [place] about 10 years ago. He is to his second and has a 15-year-old son at that time. Also noted to have 2 adult children from prior marriage. Spiritual: Orthodox would like processing assistant visitation Legal:Due to dementia, clinical conditions patient is unable to participate in decision-making. Per [place] statutes his would be appropriate legal proxy. Ethical issues impacting care: Important Contacts spouse Graciee [phone] KENYETTA WOLFE -DAUGHTER [phone] ([place]) . Prognosis This patient was admitted for urinary retention, UTI. He had acute alteration of mental status, though baseline dementia and confusion is noted. He appears to be slowly improving during hospital course and is nearing baseline mental status. Given progressive nature of dementia, his advanced age and multiple medical comorbidities he does remain at risk for ongoing complications, setbacks and overall decline and recurrent hospitalizations. Appropriate for hospice if goals compatible. Code Status: Full Code Plan * Legal decision maker:Due to dementia, clinical conditions patient is unable to participate in decision-making. Per [place] statutes his would be appropriate legal proxy. * Goals: Met with at length via phone upon initial consultation 05/03/17. Review of patient underlying dementia she indicates he has had it for maybe 3-5 years though it's only gotten "bad "in the past several years. She understands it is a progressive disease, and elected hospice and had to [facility] this [facility] the summer when she could no longer care for his behavioral/emotional issues secondary to the dementia. She is tearful at times she endorses that he would not want to suffer, and that she hates to see him suffered. Much review of dementia progression and expected trajectory. Much review of current clinical assessment. She advises that she would not proceed with any type of feeding tube based on patient known wishes. She does not feel he would want his life to be prolonged by any artificial measures especially not if they would induce additional suffering, which he does not have the ability to understand. She requests no feeding tubes. She thinks she would like to proceed with hospice enrollment again upon discharge--though she is not certain if she should proceed with [facility] hospice or consider another provider, she's not certain what his nursing facility will allow for different hospice services, she wishes to contact them first. 05/04/17- [facility]. She does not want patient to have a feeding tube, does not want ongoing hospitalizations. 05/04/17- no changes to goals, wishes [facility], pt pending d/c to SNF today or tomorrow * CODE STATUS: DNR * SYMPTOMS: --Encephalopathy/confusion-patient admitted for acute UTI, underlying dementia, likely multifactorial. appears close to baseline level of confusion , alertness some remote recall. --Poor appetite-patient with minimal oral intake refusing food, medications etc. during admission course, today actually ate most of his lunch which is the most he's eaten since been here. Could be secondary to more acute confusion related to UTI, or could be dementia progression; indicates patient would not want a feeding tube under any circumstances and she would elect comfort measures ; she requests [facility] be consulted. Calorie count in process , appetite stimulant per medical attending.Pt appetite improved yesterday * Palliative care will continue to follow during hospital course as condition evolves, to assist patient/decision-maker with understanding of medical conditions, weighing benefits/burdens of treatment options, for clarification of goals of treatment. Additionally will assist with any symptoms of palliative concern Time Spent Total Floor Time (mins): 20 (chart review, PE, d/w , d/w medical attending ) Aleena Call May 05, 2017 11:54
[2017-05-05] MEDS ORDERED: FLUC100T2 PO (13:35)
[2017-05-05] MEDS ORDERED: FLUCONAZOLE 100 MG TAB PO ONE (13:45)
[2017-05-06] MEDS ORDERED: FLUCONAZOLE 100 MG TAB PO SCH (09:00)
== END 2017-05-05 17:46 | DRG 871 ==
LOC: NEPE 18:50 → NEDA 21:31 → NEDH 05-02 02:05 → N06B 05-02 03:13 → N06A 05-04 17:44
PROVIDERS: ADMIT Hospitalist; ATTEND Hospitalist
DX: B37.7 Candidal sepsis (principal); R65.21 Severe sepsis with septic shock; G93.40 Encephalopathy, unspecified; N17.9 Acute kidney failure, unspecified; E46 Unspecified protein-calorie malnutrition; I11.0 Hypertensive heart disease with heart failure; E11.65 Type 2 diabetes mellitus with hyperglycemia; I50.9 Heart failure, unspecified; Z66 Do not resuscitate; B37.49 Other urogenital candidiasis; N40.1 Benign prostatic hyperplasia with lower urinary tract symptoms; R33.8 Other retention of urine; R00.0 Tachycardia, unspecified; E78.5 Hyperlipidemia, unspecified; H91.90 Unspecified hearing loss, unspecified ear; F03.90 Unspecified dementia, unspecified severity, without behavioral disturbance, psychotic disturbance, mood disturbance, and anxiety; F32.9 Major depressive disorder, single episode, unspecified; F41.9 Anxiety disorder, unspecified; Z79.84 Long term (current) use of oral hypoglycemic drugs
CPT/HCPCS: 51703; 71010; 76937; 80053; 81001; 82010; 82948; 83036; 83605; 83735; 84100; 84439; 84443; 85025; 85610; 85730; 87040; 87086; 87106; 93005; 96361; 96372; 96374; J0131; J0696; J1815; J2543; J3370; J3480; J7030; J7040; J7050